=== PATIENT | male | born 1975 | race Caucasian/White ===

== ENCOUNTER 2017-03-20 12:21 | Emergency (ER) | payer OTHER ==
[2017-03-20 12:23] VITALS: BP 114/60; BMI 26.7
--- NOTE | 2017-03-20 13:52 | DR.GENAD ---
HPI - PCP Primary Care Physician: DR. HOANG - HPI Comment HPI Comment: PATIENT HAVE HISTORY OF CIRRHOSIS OF THE LIVER AND THROMBOCYTOPENIA. SILVANITRATE SWAB WAS USE IN PCP OFFICE. HELP BUT SLEEDING STARTED AGAIN. DENIES HEMATURIA OR MELENA. - Complaint/Symptoms Chief Complaint Doctors Comments: BLEEDING FROM LEFT NOSE TIMES 3 DAYS. Chief Complaint:: PATIENT STATED THAT HIS LEFT NARE HAS BEEN BLEEDING FOR 3 DAYS. - Nurses notes reviewed Nurses Notes Review: Yes - Source History Provided: Patient - Mode of Arrival Mode of Arrival: Ambulatory - Timing Onset of Chief Complaint: 03/17/17 Came on: Suddenly - Duration Duration: Intermittent Duration: Days PMH - PMH Past Medical History: Yes Past Medical History: Cirrhosis, Kidney Stones, Liver Disease Past Surgical History: Yes Surgical History: Lithotripsy - Family History History of Family Medical Conditions: Yes Family Medical History: Diabetes Mellitus, Cancer, NM, Coronary Artery Disease, Heart Failure, Hypertension - Social History Does patient currently use any type of tobacco product: No Have you used tobacco products in the last 12 months: No Type of Tobacco Use: None Does any household member use tobacco: No Do you use any recreational Drugs:: No Lives With: Family Lives Where: Home - infectious screening In the last 2 months have you had wt loss of >10#?: NO Have you had fever, night sweats or hemotysis?: No Have you traveled outside the country in the last 6 months?: No Isolation: Standard ROS - Review of Systems Constitutional: Weakness, Fatigue Eyes: No Symptoms Reported ENTM: Nose Pain (LT NOSTRIL), Epistaxis (LEFT NOSTRIL). negative: Ear Pain, Nose Congestion, Mouth Pain, Throat Pain Respiratoy: No Symptoms Reported. negative: Productive Cough, Non-Productive Cough, Short of Breath, Wheezing, Hemoptysis Cardiovascular: No Symptoms Reported. negative: Chest Pain, Edema Gastrointestinal/Abdominal: Abdominal Pain, Nausea, Vomiting Genitourinary: No Symptoms Reported Neurological: Weakness. negative: Dizziness Musculoskeletal: No Symptoms Reported Integumentary: No Symptoms Reported. negative: Juandice Hematologic/Lymphatic: Other (THROMBOCYTOPENIA) Endocrine: No Symptoms Reported All Other Systems: Reviewed and Negative PE - Vital Signs Vitals: Pulse Rate 54 Respiratory Rate 20 Blood Pressure [Left Arm] 119/58 Blood Pressure [Right Arm] 104/57 Blood Pressure 114/60 O2 Sat by Pulse Oximetry 100 - General Limitations: No Limitations General Appearance: Alert - Head Head Exam: Normal Inspection - Eyes Eye exam: Normal Appearance. negative: Scleral Icterus, Conjunctival Injection - ENT ENT Exam: Normal External Ear Exam, Other (BLEEDING FROM LEFT NOSTRIL. MOUTH IN MOUTH ALSO.) External Ear Exam: Normal External Inspection TM/Canal Exam: Bilateral Normal Nose Exam: Other (BLEEDING FROM LEFT NOSTRIL.) Mouth Exam: Normal Inspection Throat Exam: Normal Inspection - Neck Neck Exam: Trachea Midline. negative: Tenderness, Meningismus, Lymphadenopathy - Chest Chest Inspection: Symmetric Chest Wall Rise - Respiratory Respiratory Exam: Normal Lung Sounds Bilat Respiratory Exam: Bilateral Clear to Auscultation - Cardiovascular Cardiovascular Exam: Regular Rate, Normal Rhythm, Normal Heart Sounds - Abdominal Exam Abdominal Exam: Normal Bowel Sounds, Soft. negative: Tenderness - Extremities Extremities Exam: Normal Inspection - Back Back Exam: Normal Inspection - Neurologic Neurological Exam: Alert, Oriented X3 - Psychiatric Psychiatric Exam: Anxious - Skin Skin Exam: Dry MDM - Additional Information Additional Information Obtained From: Family - Differential Diagnosis Differential Diagnosis: EPISTAXIS LT NOSTRIL, CIRRHOSIS, THROMBOCYTOPENIA Course - Treatment Treatment: SEE ORDERS. PATIENT DID NOT WISH TO HAVE NASAL PACKING. - Education/Counseling Education/Counseling: Patient, Family, Education Educated On: Diagnosis, Needs for Follow Up ROR - Labs Reviewed Laboratory Results Reviewed?: Yes Result Diagrams: 03/20/17 14:10 03/20/17 14:10 Laboratory: WBC 5.7 X10^3/uL (3.6-10.0) 03/20/17 14:10 RBC 2.92 X10^6/uL (4.7-6.0) L 03/20/17 14:10 Hgb 9.3 g/dL (13.5-18.0) L 03/20/17 14:10 Hct 27.3 % (42.0-54.0) L 03/20/17 14:10 MCV 93.5 fL (80.0-100.0) 03/20/17 14:10 MCH 31.9 pg (27.0-34.0) 03/20/17 14:10 MCHC 34.1 g/dL (33.0-35.0) 03/20/17 14:10 RDW 18.4 % (11.6-16.5) H 03/20/17 14:10 Plt Count 43 X10^3/uL (150.0-450.0) L 03/20/17 14:10 Plt Count Comment Decreased (ADEQUATE) 03/20/17 14:10 MPV 8.5 fL (7.4-11.0) 03/20/17 14:10 Neut % 73.1 % (42.0-75.0) 03/20/17 14:10 Lymph % 16.4 % (21.0-51.0) L 03/20/17 14:10 Park % 8.1 % (0.0-13.0) 03/20/17 14:10 Eos % 1.9 % (0.9-2.9) 03/20/17 14:10 Baso % 0.5 % (0.2-1.0) 03/20/17 14:10 Neut # 4.1 x10^3/uL (2.2-4.8) 03/20/17 14:10 Lymph # 0.9 X10^3/uL (1.3-2.9) L 03/20/17 14:10 Park # 0.5 x10^3/uL (0.3-0.8) 03/20/17 14:10 Eos # 0.1 x10^3/uL (0.0-0.2) 03/20/17 14:10 Baso # 0.0 X10^3/uL (0.0-0.1) 03/20/17 14:10 Absolute Nucleated RBC 0.0 /100WBC 03/20/17 14:10 Plt Morphology Comment Normal (NORMAL) 03/20/17 14:10 RBC Morphology Abnormal (NORMAL) 03/20/17 14:10 Hypochromasia Slight A 03/20/17 14:10 Anisocytosis Slight A 03/20/17 14:10 INR Target Range - 03/20/17 14:10 INR 1.56 (0.8-1.3) H 03/20/17 14:10 PTT 45.0 SECONDS (22.9-36.5) H 03/20/17 14:10 PTT Comment - 03/20/17 14:10 Sodium 141 mmol/L (136-145) 03/20/17 14:10 Corrected Sodium TNP 03/20/17 14:10 Potassium 4.1 mmol/L (3.5-5.1) 03/20/17 14:10 Chloride 107 mmol/L (98-107) 03/20/17 14:10 Carbon Dioxide 27.2 mmol/L (21-32) 03/20/17 14:10 BUN 15 mg/dL (7-18) 03/20/17 14:10 Creatinine 0.92 mg/dL (0.70-1.30) 03/20/17 14:10 Est GFR (MDRD) Af Amer > 60 (>60) 03/20/17 14:10 Est GFR (MDRD) Non-Af > 60 (>60) 03/20/17 14:10 Glucose 100 mg/dL (65-99) H 03/20/17 14:10 Calcium 8.3 mg/dL (8.5-10.1) L 03/20/17 14:10 Corrected Calcium 8.9 mg/dL (8.5-10.1) 03/20/17 14:10 Total Bilirubin 2.20 mg/dL (0.2-1.0) H 03/20/17 14:10 AST 18 Units/L (15-37) 03/20/17 14:10 ALT 20 Units/L (12-78) 03/20/17 14:10 Alkaline Phosphatase 87 Units/L (46-116) 03/20/17 14:10 Total Protein 6.8 g/dL (6.4-8.2) 03/20/17 14:10 Albumin 3.3 g/dL (3.4-5.0) L 03/20/17 14:10 Globulin 3.5 g/dL (2.5-4.5) 03/20/17 14:10 Albumin/Globulin Ratio 0.9 Ratio (1.1-2.1) L 03/20/17 14:10 - Diagnosis Discharge Problem: Thrombocytopenia, Elevated partial thromboplastin time (PTT) Liver cirrhosis Qualifiers: Hepatic cirrhosis type: unspecified hepatic cirrhosis Ascites presence: without ascites Qualified Code(s): K74.60 - Unspecified cirrhosis of liver - Discharge Plan Disposition: HOME, SELF-CARE Condition: Stable - Follow ups/Referrals Follow ups/Referrals: JODEE HOANG [Primary Care Provider] - 03/21/17 - Instructions Instructions: Nosebleed, [id number], Thrombocytopenia, [id number], Cirrhosis Additional Instructions: RETURN TO ED IF WORSE. SEE ENT IN AM
[2017-03-20 14:32] LABS: BASOPHILS % (AUTO) 0.5 % (0.2-1.0); EOSINOPHILS # (AUTO) 0.1 x10^3/uL (0.0-0.2); EOSINOPHILS % (AUTO) 1.9 % (0.9-2.9); HEMATOCRIT 27.3 % (42.0-54.0); HEMOGLOBIN 9.3 g/dL (13.5-18.0); LYMPHOCYTES # (AUTO) 0.9 X10^3/uL (1.3-2.9); LYMPHOCYTES % (AUTO) 16.4 % (21.0-51.0); MEAN CORPUSCULAR HEMOGLOBIN 31.9 pg (27.0-34.0); MEAN CORPUSCULAR HGB CONC 34.1 g/dL (33.0-35.0); MEAN CORPUSCULAR VOLUME 93.5 fL (80.0-100.0); MEAN PLATELET VOLUME 8.5 fL (7.4-11.0); MONOCYTES # (AUTO) 0.5 x10^3/uL (0.3-0.8); MONOCYTES % (AUTO) 8.1 % (0.0-13.0); NEUTROPHILS # (AUTO) 4.1 x10^3/uL (2.2-4.8); NEUTROPHILS % (AUTO) 73.1 % (42.0-75.0); PLATELET COUNT 43 X10^3/uL (150.0-450.0); RED BLOOD COUNT 2.92 X10^6/uL (4.7-6.0); RED CELL DISTRIBUTION WIDTH 18.4 % (11.6-16.5); WHITE BLOOD COUNT 5.7 X10^3/uL (3.6-10.0)
[2017-03-20 14:33] LABS: ALANINE AMINOTRANSFERASE 20 Units/L (12-78); ALBUMIN 3.3 g/dL (3.4-5.0); ALKALINE PHOSPHATASE 87 Units/L (46-116); ASPARTATE AMINO TRANSFERASE 18 Units/L (15-37); BLOOD UREA NITROGEN 15 mg/dL (7-18); CALCIUM 8.3 mg/dL (8.5-10.1); CARBON DIOXIDE 27.2 mmol/L (21-32); CHLORIDE 107 mmol/L (98-107); COR CA(FOR HYPOALB) 8.9 mg/dL (8.5-10.1); CREATININE 0.92 mg/dL (0.70-1.30); GLUCOSE 100 mg/dL (65-99); SODIUM 141 mmol/L (136-145); TOTAL PROTEIN 6.8 g/dL (6.4-8.2); eGFR BLACK RACES > 60 (>60); eGFR NON BLACK RACES > 60 (>60)
[2017-03-20 15:00] LABS: ANISOCYTOSIS SLIGHT; HYPOCHROMASIA SLIGHT; PLATELET MORPHOLOGY COMMENT NORMAL (NORMAL)
[2017-03-20] MEDS ORDERED: AQUA-MEPHYTON ADULT INJ SC ONE (15:36)
[2017-03-20] MEDS ORDERED: AQUA-MEPHYTON ADULT INJ ONE (16:02)
== END 2017-03-20 17:12 | disposition home or self-care (01) ==
LOC: ER 12:28
DX: K74.60 Unspecified cirrhosis of liver (principal); D69.6 Thrombocytopenia, unspecified; R79.1 Abnormal coagulation profile
CPT/HCPCS: 36415; 80053; 85025; 85610; 85730; 96372; 99282; J3430

== ENCOUNTER → 2017-05-23 | Outpatient (CLI) | payer OTHER | LOC: LAB 10:58 | PROVIDERS: ATTEND Internal Medicine Gastroenterology | DX: K70.30 Alcoholic cirrhosis of liver without ascites (principal) | CPT/HCPCS: 36415; 85610 ==

== ENCOUNTER → 2017-05-24 | Outpatient (CLI) | payer OTHER ==
[2017-05-24 10:24] LABS: ALANINE AMINOTRANSFERASE 24 Units/L (12-78); ALBUMIN 3.2 g/dL (3.4-5.0); ALKALINE PHOSPHATASE 78 Units/L (46-116); ASPARTATE AMINO TRANSFERASE 20 Units/L (15-37); BLOOD UREA NITROGEN 14 mg/dL (7-18); CALCIUM 8.1 mg/dL (8.5-10.1); CARBON DIOXIDE 24.9 mmol/L (21-32); CHLORIDE 109 mmol/L (98-107); COR CA(FOR HYPOALB) 8.7 mg/dL (8.5-10.1); GLUCOSE 106 mg/dL (65-99); SODIUM 140 mmol/L (136-145); TOTAL PROTEIN 6.4 g/dL (6.4-8.2); eGFR BLACK RACES > 60 (>60); eGFR NON BLACK RACES > 60 (>60)
[2017-05-24 10:40] LABS: EOSINOPHILS # (AUTO) 0.1 x10^3/uL (0.0-0.2); EOSINOPHILS % (AUTO) 2.6 % (0.9-2.9); HEMATOCRIT 29.9 % (42.0-54.0); HEMOGLOBIN 10.2 g/dL (13.5-18.0); LYMPHOCYTES # (AUTO) 0.9 X10^3/uL (1.3-2.9); LYMPHOCYTES % (AUTO) 29.8 % (21.0-51.0); MEAN CORPUSCULAR HEMOGLOBIN 30.4 pg (27.0-34.0); MEAN CORPUSCULAR HGB CONC 34.1 g/dL (33.0-35.0); MEAN PLATELET VOLUME 9.1 fL (7.4-11.0); MONOCYTES # (AUTO) 0.2 x10^3/uL (0.3-0.8); MONOCYTES % (AUTO) 8.5 % (0.0-13.0); NEUTROPHILS # (AUTO) 1.7 x10^3/uL (2.2-4.8); NEUTROPHILS % (AUTO) 58.1 % (42.0-75.0); RED BLOOD COUNT 3.36 X10^6/uL (4.7-6.0); RED CELL DISTRIBUTION WIDTH 17.6 % (11.6-16.5); WHITE BLOOD COUNT 2.9 X10^3/uL (3.6-10.0)
[2017-05-24 10:53] LABS: PLATELET COUNT 43 X10^3/uL (150.0-450.0); PLATELET MORPHOLOGY COMMENT NORMAL (NORMAL); POIKILOCYTOSIS SLIGHT
[2017-05-24 10:54] LABS: ANISOCYTOSIS SLIGHT
== END ==
LOC: LAB 09:40
PROVIDERS: ATTEND Internal Medicine Gastroenterology
DX: K70.30 Alcoholic cirrhosis of liver without ascites (principal)
CPT/HCPCS: 36415; 80053; 85025

== ENCOUNTER → 2017-07-19 | Outpatient (CLI) | payer OTHER ==
--- NOTE | 2017-07-19 11:11 | MRI ---
History: Lower back pain with radiculopathy Study: MRI lumbar spine Findings: Sagittal and axial MR imaging through the lumbar region is performed with no previous stud ies for comparative purposes. There is mild disc space narrowing with degenerative signal loss from the L3-4 through L5-S1 levels. Alignment is normal. The conus terminates at about the level of the m idbody of L1. At the L1-2 and L2-3 levels are mild degenerative changes of the apophyseal joints. No disc herniation, spinal or foraminal stenosis is demonstrated. At the L3-4 level there are mild degenerative changes of the apophyseal joints with mild thickening of the ligamentum flava. No disc herniation, spinal or foraminal stenosis is demonstrated. At the L4-5 level there is a mild broad-based disc protrusion which appears to be subligamentous. Th ere hyper trophic changes of the posterior elements. There is mild bilateral foraminal narrowing. The L5-S1 level there is a tiny central disc protrusion with no spinal or foraminal stenosis. Incide ntal note is made of an hemangioma within the S1 segment. Impression: Degenerative disc disease from the L3-4 through L5-S1 levels with small disc protrusions at the L4-5 and L5-S1 levels. Mild bilateral L4-5 foraminal narrowing. Mild degenerative changes of the apophyseal joints as described. Reported By:
== END | disposition home or self-care (01) | DRG 552 ==
LOC: RAD 09:27
PROVIDERS: ATTEND Psychiatry & Neurology Neurology
DX: M54.16 Radiculopathy, lumbar region (principal); M51.36 Other intervertebral disc degeneration, lumbar region; M51.37 Other intervertebral disc degeneration, lumbosacral region; M51.26 Other intervertebral disc displacement, lumbar region; M51.27 Other intervertebral disc displacement, lumbosacral region
CPT/HCPCS: 72148

== ENCOUNTER → 2017-08-19 | Outpatient (CLI) | payer OTHER ==
[2017-08-19 13:45] LABS: BLOOD UREA NITROGEN 11 mg/dL (7-18); CALCIUM 8.8 mg/dL (8.5-10.1); CARBON DIOXIDE 23.3 mmol/L (21-32); CHLORIDE 109 mmol/L (98-107); CREATININE 0.96 mg/dL (0.70-1.30); SODIUM 141 mmol/L (136-145); eGFR BLACK RACES > 60 (>60); eGFR NON BLACK RACES > 60 (>60)
== END ==
LOC: LAB 12:59
DX: K70.31 Alcoholic cirrhosis of liver with ascites (principal)
CPT/HCPCS: 36415; 80048; 85610

== ENCOUNTER → 2017-08-27 | Outpatient (CLI) | payer OTHER ==
[2017-08-27 10:51] LABS: BASOPHILS % (AUTO) 0.8 % (0.2-1.0); EOSINOPHILS # (AUTO) 0.1 x10^3/uL (0.0-0.2); EOSINOPHILS % (AUTO) 2.5 % (0.9-2.9); HEMATOCRIT 29.6 % (42.0-54.0); LYMPHOCYTES # (AUTO) 0.7 X10^3/uL (1.3-2.9); LYMPHOCYTES % (AUTO) 25.7 % (21.0-51.0); MEAN CORPUSCULAR HEMOGLOBIN 29.7 pg (27.0-34.0); MEAN CORPUSCULAR HGB CONC 33.7 g/dL (33.0-35.0); MEAN CORPUSCULAR VOLUME 88.1 fL (80.0-100.0); MONOCYTES # (AUTO) 0.3 x10^3/uL (0.3-0.8); NEUTROPHILS # (AUTO) 1.7 x10^3/uL (2.2-4.8); PLATELET COUNT 41 X10^3/uL (150.0-450.0); RED BLOOD COUNT 3.35 X10^6/uL (4.7-6.0); RED CELL DISTRIBUTION WIDTH 17.4 % (11.6-16.5); WHITE BLOOD COUNT 2.8 X10^3/uL (3.6-10.0)
[2017-08-27 10:59] LABS: ALANINE AMINOTRANSFERASE 22 Units/L (12-78); ALBUMIN 3.4 g/dL (3.4-5.0); ALKALINE PHOSPHATASE 71 Units/L (46-116); ASPARTATE AMINO TRANSFERASE 26 Units/L (15-37); BLOOD UREA NITROGEN 14 mg/dL (7-18); CALCIUM 8.6 mg/dL (8.5-10.1); CARBON DIOXIDE 25.4 mmol/L (21-32); CHLORIDE 110 mmol/L (98-107); COR NA(FOR HYPERGLY) 142 mmol/L (136-145); CREATININE 1.03 mg/dL (0.70-1.30); SODIUM 142 mmol/L (136-145); TOTAL PROTEIN 6.4 g/dL (6.4-8.2); eGFR BLACK RACES > 60 (>60); eGFR NON BLACK RACES > 60 (>60)
[2017-08-27 11:34] LABS: PLATELET MORPHOLOGY COMMENT NORMAL (NORMAL)
== END ==
LOC: LAB 10:23
PROVIDERS: ATTEND Internal Medicine Gastroenterology
DX: K70.31 Alcoholic cirrhosis of liver with ascites (principal); Z79.899 Other long term (current) drug therapy; Z76.82 Awaiting organ transplant status
CPT/HCPCS: 36415; 80053; 85025; 85610

== ENCOUNTER → 2018-03-07 | Outpatient (CLI) | payer OTHER ==
[2018-03-07 11:05] LABS: BASOPHILS % (AUTO) 0.6 % (0.2-1.0); EOSINOPHILS # (AUTO) 0.1 x10^3/uL (0.0-0.2); EOSINOPHILS % (AUTO) 4.2 % (0.9-2.9); HEMATOCRIT 31.4 % (42.0-54.0); HEMOGLOBIN 10.5 g/dL (13.5-18.0); LYMPHOCYTES # (AUTO) 0.9 X10^3/uL (1.3-2.9); LYMPHOCYTES % (AUTO) 34.5 % (21.0-51.0); MEAN CORPUSCULAR HEMOGLOBIN 29.7 pg (27.0-34.0); MEAN CORPUSCULAR HGB CONC 33.6 g/dL (33.0-35.0); MEAN CORPUSCULAR VOLUME 88.3 fL (80.0-100.0); MEAN PLATELET VOLUME 9.2 fL (7.4-11.0); MONOCYTES # (AUTO) 0.2 x10^3/uL (0.3-0.8); NEUTROPHILS # (AUTO) 1.4 x10^3/uL (2.2-4.8); NEUTROPHILS % (AUTO) 52.7 % (42.0-75.0); PLATELET COUNT 46 X10^3/uL (150.0-450.0); RED BLOOD COUNT 3.55 X10^6/uL (4.7-6.0); RED CELL DISTRIBUTION WIDTH 18.8 % (11.6-16.5); WHITE BLOOD COUNT 2.7 X10^3/uL (3.6-10.0)
[2018-03-07 11:14] LABS: ALBUMIN 3.3 g/dL (3.4-5.0); BILIRUBIN,DIRECT 0.58 mg/dL (0-0.2); TOTAL PROTEIN 6.9 g/dL (6.4-8.2)
[2018-03-07 11:15] LABS: PLATELET MORPHOLOGY COMMENT NORMAL (NORMAL)
[2018-03-07 11:16] LABS: ANISOCYTOSIS 1+
== END ==
LOC: LAB 10:30
PROVIDERS: ATTEND Internal Medicine Gastroenterology
DX: D64.89 Other specified anemias (principal); K70.30 Alcoholic cirrhosis of liver without ascites
CPT/HCPCS: 36415; 80076; 82140; 85025; 85610

== ENCOUNTER 2021-05-15 17:18 | Inpatient (IN) ==
[2021-05-15] MEDS ORDERED: LIBRIUM PO PRN (17:54)
--- NOTE | 2021-05-15 18:00 | DR.H&P ---
H&P - History & Physical for Day of: H&P Date: 05/15/21 - Chief Complaint Chief Complaint: ABDOMINAL PAIN, N/V/D, HERNIA - History of Present Illness History of Present Illness: PT IS 45 WM DIRECT ADMIT FROM DR DARDEN OFFICE AFTER PRESENT TO OFFICE FOR ER FOLLOW UP. PT STATES HE HAS HAD N/V/D WITH "GALLSTONES" AND SEEN AT [facility] FOR HYDRATION. PT FELT BETTER THEN HAD SWELLING TO RIGHT GROIN AND TESTICLE. PT WAS SEEN IN ER ON 05/06 CT REVEALED LARGE HERNIA AND POSSIBLE SBO, CHOLECYSTITS COULD NOT RULE OUT OBSTRUCTION. PT HAD BEEN ON PO LEVAQUIN. PT REPORTS BILI ELEVATED ~12. PT WAS JAUNDICE IN THE OFFICE AND CO PAIN. PT HAS PMH OF CIRRHOSIS, BUT HAD BEEN CONTROLLED. PT REPORTS HES HAD DIARRHEA OF 2 WEEKS. PT ADMITTED FOR TREATMENT OF ACUTE ILLNESS WITH SURGICAL CONSULTATION. - Past Medical History Past Medical History: Anxiety, Arthritis, Cirrhosis, Kidney Stones, Liver Disease Additional Medical History: Mitral Valve Prolapse - Past Surgical History Surgical History: Lithotripsy Additional Surgical History: Abdominal Paracentesis, Liver Biopsy - Family History Family Medical History: Diabetes Mellitus, Cancer, [place], Coronary Artery Disease, Heart Failure, Hypertension - Social History Does patient currently use any type of tobacco product: No Have you used tobacco products in the last 12 months: No Type of Tobacco Use: None Does any household member use tobacco: No Alcohol Use: Occasionally Drug Use: None Risks, benefits, and alternatives of opioids discussed: No Prescription drug monitoring program results: PDMP reviewed and no concerns identified - Medications Home Medications: No Known Drug Allergies Allergy (Verified 07/28/20 12:45) - Review of Systems Constitutional: Weakness, Malaise Eyes: No Symptoms Reported ENT: No Symptoms Reported Respiratory: SOB with Excertion Cardiovascular: No Symptoms Reported Gastrointestinal: Nausea, Abdominal Pain, Diarrhea Genitourinary: No Symptoms Reported Musculoskeletal: Back Pain Skin: Jaundice Neurological: Weakness - Physical Exam Vital Signs: Blood Pressure [Left Arm] 123/78 Oriented: Normal Eyes: Other (JAUNDICE SCLERA) Ear: Normal Nose: Normal Throat: Normal Respiratory: RLL Diminished, LLL Diminished Cardiovascular: Murmur : Normal Auscultation: Bowel Sounds: Normal Palpation: Other (RIGHT INGUINAL HERNIA, ENLARGED RIGHT TESTICLE) Tenderness: RUQ, RLQ, Epigastric Skin: Decreased Turgur Musculoskeletal: Back:Lumbar Psychiatric: Anxiety Affect: Anxious Speech Pattern: Clear, Appropriate - Assessment/Plan (1) Cholecystitis Status: Acute Plan: ADMIT, NPO AFTER MIDNIGHT FOR MRCP. AMYLASE AND LIPASE ON ADMISSION. PPI THERAPY, ADMISSION LABS INCLUDING PT/INR AND AMMONIA LEVEL. IV HYDRATION, SURGICAL CONSULT. PAIN CONTROL, OCCULT STOOL, VERIFY HOME MEDICATION (2) Hernia, inguinal, right Status: Acute (3) Cirrhosis Qualifiers: Hepatic cirrhosis type: alcoholic cirrhosis Ascites presence: with ascites Qualified Code(s): K70.31 - Alcoholic cirrhosis of liver with ascites Status: Chronic (4) Elevated LFTs Status: Acute (5) GERD (gastroesophageal reflux disease) Qualifiers: Esophagitis presence: esophagitis presence not specified Qualified Code(s): K21.9 - Gastro-esophageal reflux disease without esophagitis Status: Chronic - Allergies Allergies/Adverse Reactions: Allergies Allergy/AdvReac Type Severity Reaction Status Date / Time No Known Drug Allergies Allergy Verified 07/28/20 12:45
--- NOTE | 2021-05-15 19:21 | RAD ---
Acute abdomen series supine upright and chest three viewsIndication: Abdominal pain with diarrhea. Right lower quadrant pain. Inguinal herniaComparison May 06, 2020FINDINGSChest radiograph shows prominent heart size and scarring or infiltrate in the right lung base. There is no free air or pneumatosis. Gallstones are noted. No dilated loop of small bowel identified. Spine curves to the right. No abnormal calcific density seen.IMPRESSION1. No convincing high-grade obstruction, free air or pneumatosis2. Gallstones3. Patchy right lower lung opacity could reflect developing infiltrate.Electronically signed by: FREIDA BELLAMY (May 15, 2021 19:19:04)
[2021-05-15 19:35] LABS: BASOPHILS # (AUTO) 0.1 X10^3/uL (0.0-0.1); BASOPHILS % (AUTO) 1.7 % (0.2-1.0); EOSINOPHILS # (AUTO) 0.1 x10^3/uL (0.0-0.2); HEMOGLOBIN 11.8 g/dL (13.5-18.0); LYMPHOCYTES # (AUTO) 1.1 X10^3/uL (1.3-2.9); LYMPHOCYTES % (AUTO) 16.2 % (21.0-51.0); MEAN CORPUSCULAR HEMOGLOBIN 39.8 pg (27.0-34.0); MEAN CORPUSCULAR HGB CONC 34.8 g/dL (33.0-35.0); MEAN CORPUSCULAR VOLUME 114.2 fL (80.0-100.0); MEAN PLATELET VOLUME 9.3 fL (7.4-11.0); MONOCYTES # (AUTO) 0.6 x10^3/uL (0.3-0.8); MONOCYTES % (AUTO) 8.2 % (0.0-13.0); NEUTROPHILS # (AUTO) 4.9 x10^3/uL (2.2-4.8); NEUTROPHILS % (AUTO) 71.9 % (42.0-75.0); PLATELET COUNT 63 X10^3/uL (150.0-450.0); RED BLOOD COUNT 2.97 X10^6/uL (4.7-6.0); RED CELL DISTRIBUTION WIDTH 16.9 % (11.6-16.5); WHITE BLOOD COUNT 6.7 X10^3/uL (3.6-10.0)
[2021-05-15 19:45] LABS: AMMONIA 18 umol/L (11-32)
[2021-05-15] MEDS: ALDACTONE TAB 25 MG PO SCH (19:49)
[2021-05-15] MEDS: NS 1000 ML 1,000 ML IV SCH (19:49)
[2021-05-15] MEDS: ROXICODONE TAB 5 MG PO PRN (19:50)
[2021-05-15] MEDS: PROTONIX INJ 40 MG VIAL IVP SCH ×2 (19:50→20:53)
[2021-05-15 19:54] LABS: LACTIC ACID 1.7 mmol/L (0.4-2.0)
[2021-05-15 19:55] LABS: ALANINE AMINOTRANSFERASE 40 Units/L (12-78); ALBUMIN 2.5 g/dL (3.4-5.0); ALKALINE PHOSPHATASE 90 Units/L (46-116); AMYLASE 40 Units/L (25-115); ASPARTATE AMINO TRANSFERASE 79 Units/L (15-37); BLOOD UREA NITROGEN 10 mg/dL (7-18); CALCIUM 8.3 mg/dL (8.5-10.1); CARBON DIOXIDE 24.3 mmol/L (21-32); CHLORIDE 108 mmol/L (98-107); COR CA(FOR HYPOALB) 9.5 mg/dL (8.5-10.1); CREATININE 1.07 mg/dL (0.70-1.30); LIPASE 272 Units/L (73-393); MAGNESIUM 1.7 mg/dL (1.7-2.9); SODIUM 141 mmol/L (136-145); TOTAL PROTEIN 6.8 g/dL (6.4-8.2); eGFR NON BLACK RACES > 60 (>60)
[2021-05-15 20:00] LABS: PLATELET MORPHOLOGY COMMENT NORMAL (NORMAL)
[2021-05-15 20:01] LABS: ANISOCYTOSIS 1+; HYPOCHROMASIA SLIGHT; POIKILOCYTOSIS SLIGHT; TEAR DROP CELLS FEW
[2021-05-15] MEDS ORDERED: MVI INJ (ADULT) IV ONE (20:02)
[2021-05-15] MEDS: NS 1000 ML 1,000 ML with MAGNESIUM SULFATE 50% INJ VIAL 1 G, MVI INJ (ADULT) 10 ML IV SCH ×3 (20:30)
[2021-05-15 20:52] LABS: BILIRUBIN,URINE 1+ (NEGATIVE); BLOOD/HEMOGLOBIN,URINE 4+ (NEGATIVE); GLUCOSE, URINE NEGATIVE (NEGATIVE); KETONES,URINE NEGATIVE (NEGATIVE); LEUKOCYTE ESTERASE ,URINE 1+ (NEGATIVE); NITRITES,URINE NEGATIVE (NEGATIVE); PH,URINE 6.5 (5.0 - 8.0); PROTEIN,URINE 1+ (NEGATIVE); UROBILINOGEN,URINE 3+ (NORMAL)
[2021-05-15 20:55] LABS: APPEARANCE,URINE CLEAR (CLEAR); COLOR,URINE AMBER (YELLOW)
[2021-05-15 21:01] LABS: AMORPHOUS SEDIMENT,UR 2+ /HPF (NEGATIVE); BACTERIA,URINE 1+ /HPF (NEGATIVE); MUCUS,URINE FEW /HPF (NEGATIVE); SQUAMOUS EPITHELIAL CELL,UR FEW /HPF (NEGATIVE)
[2021-05-16] MEDS: ROXICODONE TAB 5 MG PO PRN ×2 (04:34→19:06)
[2021-05-16 05:04] LABS: EOSINOPHILS # (AUTO) 0.1 x10^3/uL (0.0-0.2); EOSINOPHILS % (AUTO) 2.8 % (0.9-2.9); HEMATOCRIT 26.4 % (42.0-54.0); HEMOGLOBIN 9.3 g/dL (13.5-18.0); LYMPHOCYTES # (AUTO) 0.9 X10^3/uL (1.3-2.9); MEAN CORPUSCULAR HEMOGLOBIN 39.5 pg (27.0-34.0); MEAN CORPUSCULAR HGB CONC 35.3 g/dL (33.0-35.0); MEAN CORPUSCULAR VOLUME 111.9 fL (80.0-100.0); MEAN PLATELET VOLUME 9.4 fL (7.4-11.0); MONOCYTES # (AUTO) 0.4 x10^3/uL (0.3-0.8); MONOCYTES % (AUTO) 10.3 % (0.0-13.0); NEUTROPHILS # (AUTO) 2.2 x10^3/uL (2.2-4.8); NEUTROPHILS % (AUTO) 59.9 % (42.0-75.0); PLATELET COUNT 40 X10^3/uL (150.0-450.0); RED BLOOD COUNT 2.36 X10^6/uL (4.7-6.0); RED CELL DISTRIBUTION WIDTH 16.7 % (11.6-16.5); WHITE BLOOD COUNT 3.6 X10^3/uL (3.6-10.0)
[2021-05-16 05:18] LABS: ALANINE AMINOTRANSFERASE 33 Units/L (12-78); ALBUMIN 1.9 g/dL (3.4-5.0); ALKALINE PHOSPHATASE 66 Units/L (46-116); ASPARTATE AMINO TRANSFERASE 61 Units/L (15-37); BLOOD UREA NITROGEN 10 mg/dL (7-18); CALCIUM 7.5 mg/dL (8.5-10.1); CARBON DIOXIDE 25.8 mmol/L (21-32); CHLORIDE 111 mmol/L (98-107); COR CA(FOR HYPOALB) 9.2 mg/dL (8.5-10.1); CREATININE 0.96 mg/dL (0.70-1.30); SODIUM 142 mmol/L (136-145); TOTAL PROTEIN 5.1 g/dL (6.4-8.2); eGFR NON BLACK RACES > 60 (>60)
[2021-05-16 05:43] LABS: HYPOCHROMASIA SLIGHT; PLATELET MORPHOLOGY COMMENT NORMAL (NORMAL)
[2021-05-16] MEDS ORDERED: LIBRIUM PO PRN (08:00)
[2021-05-16] MEDS: NS 1000 ML 1,000 ML IV SCH ×2 (09:17→22:33)
[2021-05-16] MEDS: CIPRO IV 400 MG PREMIX* 400 MG/200 ML IV.SOLN. IV SCH ×2 (09:17→21:18)
[2021-05-16] MEDS: PROTONIX INJ 40 MG VIAL IVP SCH ×2 (09:17→21:19)
[2021-05-16] MEDS: ALDACTONE TAB 25 MG PO SCH (09:17)
[2021-05-16] MEDS ORDERED: MORPHINE SULFATE INJ 2 MG INJ IVP ONE ×2 (09:33→11:00)
[2021-05-16] MEDS ORDERED: BENADRYL INJ 50 MG VIAL IVP ONE ×2 (09:34→11:00)
--- NOTE | 2021-05-16 12:56 | MRI ---
Exam:MRCPIndication: GALLSTONESComparison: [05/06/2021 and 05/15/2021]Technique:Multiplanar, multisequence imaging of the abdomen without IV contrast administration.Findings:[In and out of phase imaging demonstrates no drop in signal within the liver to suggest steatosis. The liver has a nodular surface morphology consistent with cirrhosis. Multiple T2 hyperintense lesions are noted scattered throughout the liver parenchyma, the largest measures approximately 1.8 x 1.4 cm within the periphery of the right hepatic lobe on axial image 22. Small amount of perihepatic free fluid.Gallstones are noted within the dependent proximal gallbladder. No pericholecystic fluid or gallbladder wall thickening. No intrahepatic or extrahepatic bile duct dilatation. Pancreatic duct is normal.The spleen is enlarged measuring approximately 18 cm in greatest dimension. No focal splenic lesion. The pancreas demonstrates no mass, peripancreatic adenopathy or fluid. Adrenal glands are normal. The right kidney demonstrates no solid mass or hydronephrosis. The left kidney contains a few small cysts without hydronephrosis or solid mass. Upper GI tract demonstrates no evidence of mass or obstruction. Abdominal aorta is normal in caliber. No adenopathy.IMPRESSIONCholelithiasis without MR evidence of acute cholecystitis. Intrahepatic and extrahepatic bile ducts are normal in caliber.Cirrhotic morphology of the liver with multiple T2 hyperintense lesions, while these may represent cysts the remains indeterminate given the findings consistent chronic liver disease. Correlation with multiphasic contrast enhanced abdominal MRI is recommended for exclusion of underlying malignancy/HCC.Splenomegaly with small amount of free fluid within the abdomen is consistent with portal venous hypertension.Electronically signed by: JODEE BEE (May 16, 2021 12:54:43)
--- NOTE | 2021-05-16 13:06 | DR.CONSULT ---
CONSULT Consultation for Day of: Date: 05/15/21 Allergies Allergies Allergy/AdvReac Type Severity Reaction Status Date / Time No Known Drug Allergies Allergy Verified 07/28/20 12:45 Past Medical History Past Medical History: Anxiety, Arthritis, Cirrhosis, Kidney Stones and Liver Disease Additional Medical History: Mitral Valve Prolapse Past Surgical History Surgical History: Lithotripsy and Other Additional Surgical History: Abdominal Paracentesis, Liver Biopsy Family History Family Medical History: Diabetes Mellitus and Coronary Artery Disease Social History Does patient currently use any type of tobacco product: Yes Have you used tobacco products in the last 12 months: Yes Type of Tobacco Use: Cigarettes How many years tobacco product used: 32 Does any household member use tobacco: No Alcohol Use: Other Drug Use: None Medications Home Medications: No Known Drug Allergies Allergy (Verified 07/28/20 12:45) CONTINUE taking the following medications potassium chloride 10 meq PO DAILY 05/15/21 [History] spironolactone 50 mg PO BID 05/15/21 [History] Physical Exam Vital Signs: Temperature 98.0 F Pulse Rate [Left Radial] 70 Respiratory Rate 20 Blood Pressure [Right Arm] 108/65 Blood Pressure [Left Arm] 104/55 O2 Sat by Pulse Oximetry 99
--- NOTE | 2021-05-16 13:19 | DR.CONSULT ---
CONSULT Consultation for Day of: Date: 05/15/21 Chief Complaint Chief Complaint: Right upper quadrant pain and right groin inguinal hernia. Allergies Allergies Allergy/AdvReac Type Severity Reaction Status Date / Time No Known Drug Allergies Allergy Verified 07/28/20 12:45 History of Present Illness History of Present Illness: 6 years ago he was considered a candidate for liver transplant but got better once he stop drinking alcohol.This 45-year-old male with known history of cirrhosis due to alcohol use had presented originally to the emergency room on 06 May complaining of a right sided inguinal hernia. CT scan of the abdomen and pelvis confirmed the hernia with probable ascitic fluid and also a large gallstone. Patient had been without drinking for almost 6 years and had a binge of alcohol use which landed him in the hospital in [facility] last week for alcohol withdrawal. He presented now to his primary care provider complaining of right upper quadrant pain with known gallstones and the right inguinal hernia. He is been admitted because of diarrhea for hydration and the patient reported his bilirubin to be 12. Past Medical History Past Medical History: Anxiety, Arthritis, Cirrhosis, Kidney Stones and Liver Disease Additional Medical History: Mitral Valve Prolapse Past Surgical History Surgical History: Lithotripsy and Other Additional Surgical History: Abdominal Paracentesis, Liver Biopsy Family History Family Medical History: Diabetes Mellitus and Coronary Artery Disease Social History Does patient currently use any type of tobacco product: Yes (chewing tobacco) Have you used tobacco products in the last 12 months: Yes Type of Tobacco Use: dips How many years tobacco product used: 32 Packs per day or dips/chews per day: 5 dips/day , occasional cigarette Does any household member use tobacco: No Alcohol Use: Other ( Alcohol use has been heavy is past and by his history he was abstinent of alcohol for 6 years until a few weeks ago when he had a binge of drinking. He was admitted to [facility] for withdrawal.) Drug Use: None Medications Home Medications: No Known Drug Allergies Allergy (Verified 07/28/20 12:45) CONTINUE taking the following medications potassium chloride 10 meq PO DAILY 05/15/21 [History] spironolactone 50 mg PO BID 05/15/21 [History] Physical Exam Vital Signs: WBC= 3.6, HgB= 9.3, PLATLETS=40k,INR=1.95, T.bili=5.6, AMYLASE and LIPASE both WNL,MRCP- gallstone, no duct dilation,cirrhosis, no evidence acute chloecystitis. MRCP WBC Temperature 98.0 F Pulse Rate [Left Radial] 70 Respiratory Rate 20 Blood Pressure [Right Arm] 108/65 Blood Pressure [Left Arm] 104/55 O2 Sat by Pulse Oximetry 99 Oriented: Normal, Time, Person and Place Eyes: Normal and Other (scleral icterus) Ear: Normal Nose: Normal Throat: Normal Respiratory: Clear Throughout Cardiovascular: Normal and Other ( Gives history of mitral valve prolapse but I could hear no murmur.) : Other ( Large right inguinal hernia I could not reduce . Feels like bowel but CT reported it as ascitic fluid. It was a non contrast scan ans this could represent non-opacified bowel.) Auscultation: Bowel Sounds: Normal Tenderness: RUQ (mild RUQ tenderness) Skin: Normal and Other ( No caput medusa but does have some swelling at the umbilicus) Musculoskeletal: Normal Psychiatric: Normal, Anxiety and Other ( Not currently in alcohol withdrawal.) Mood Description: Calm Affect: Anxious Speech Pattern: Clear Plan Plan: Possible cholecystitis with cholelithiasis whenever. Although mildly tender this probably represents biliary disease and not acute cholecystitis. He also has a right inguinal hernia and I cannot tell whether bowel contents are involved as contrast was not used for the CT scan. He had recent binge of alcohol use and is at high risk for alcohol withdrawal I do not think any emergency surgery should be done. I will treat him with IV Cipro and transition to PO Cipro. He can be reevaluated in the future to consider cholecystectomy done laparoscopically and right inguinal hernia laparoscopic repair . I would recommend these be done separately. I will follow with you .He needs prophylaxis for alcohol withdrawal as you are doing. His MELD score is 21 which puts him at a 3 month mortality of 23 %.
[2021-05-16] MEDS: NS 1000 ML 1,000 ML with MAGNESIUM SULFATE 50% INJ VIAL 1 G, MVI INJ (ADULT) 10 ML IV SCH ×3 (18:51)
[2021-05-17] MEDS: ROXICODONE TAB 5 MG PO PRN ×3 (04:21→23:23)
[2021-05-17 05:04] LABS: BASOPHILS % (AUTO) 0.8 % (0.2-1.0); EOSINOPHILS # (AUTO) 0.1 x10^3/uL (0.0-0.2); HEMATOCRIT 25.3 % (42.0-54.0); LYMPHOCYTES # (AUTO) 0.7 X10^3/uL (1.3-2.9); LYMPHOCYTES % (AUTO) 26.6 % (21.0-51.0); MEAN CORPUSCULAR HEMOGLOBIN 39.9 pg (27.0-34.0); MEAN CORPUSCULAR HGB CONC 35.4 g/dL (33.0-35.0); MEAN CORPUSCULAR VOLUME 112.7 fL (80.0-100.0); MEAN PLATELET VOLUME 10.3 fL (7.4-11.0); MONOCYTES # (AUTO) 0.3 x10^3/uL (0.3-0.8); MONOCYTES % (AUTO) 11.1 % (0.0-13.0); NEUTROPHILS # (AUTO) 1.6 x10^3/uL (2.2-4.8); NEUTROPHILS % (AUTO) 58.5 % (42.0-75.0); PLATELET COUNT 35 X10^3/uL (150.0-450.0); RED BLOOD COUNT 2.25 X10^6/uL (4.7-6.0); RED CELL DISTRIBUTION WIDTH 16.2 % (11.6-16.5); WHITE BLOOD COUNT 2.8 X10^3/uL (3.6-10.0)
[2021-05-17 05:17] LABS: ALANINE AMINOTRANSFERASE 33 Units/L (12-78); ALBUMIN 1.8 g/dL (3.4-5.0); ALKALINE PHOSPHATASE 62 Units/L (46-116); ASPARTATE AMINO TRANSFERASE 81 Units/L (15-37); BLOOD UREA NITROGEN 8 mg/dL (7-18); CALCIUM 7.4 mg/dL (8.5-10.1); CARBON DIOXIDE 22.8 mmol/L (21-32); CHLORIDE 111 mmol/L (98-107); COR CA(FOR HYPOALB) 9.2 mg/dL (8.5-10.1); CREATININE 0.83 mg/dL (0.70-1.30); SODIUM 141 mmol/L (136-145); TOTAL PROTEIN 5.1 g/dL (6.4-8.2); eGFR NON BLACK RACES > 60 (>60)
--- NOTE | 2021-05-17 05:35 | RAD ---
HISTORYR/O FLUID OVERLOADSTUDYCHEST, 1 [id number]/27/2020FINDINGSThe trachea is midline. The cardiac silhouette is enlarged.. The lungs are clear without focal infiltrate or effusion. Pulmonary vasculature within normal limits. The bony thorax is unremarkable.IMPRESSIONMild cardiomegaly.No active cardiopulmonary diseaseElectronically signed by: Yefri Merrill (May 17, 2021 05:33:18)
[2021-05-17 05:37] LABS: HYPOCHROMASIA SLIGHT; PLATELET MORPHOLOGY COMMENT NORMAL (NORMAL)
[2021-05-17] MEDS: ALDACTONE TAB 25 MG PO SCH (09:31)
[2021-05-17] MEDS: PROTONIX INJ 40 MG VIAL IVP SCH ×2 (09:32→21:43)
[2021-05-17] MEDS: CIPRO IV 400 MG PREMIX* 400 MG/200 ML IV.SOLN. IV SCH ×2 (09:32→21:42)
[2021-05-17 20:54] VITALS: BMI 26.5
[2021-05-17] MEDS: NS 1000 ML 1,000 ML with MAGNESIUM SULFATE 50% INJ VIAL 1 G, MVI INJ (ADULT) 10 ML IV SCH ×3 (21:41)
[2021-05-17] MEDS: NS 1000 ML 1,000 ML IV SCH (21:41)
--- NOTE | 2021-05-17 22:09 | NOTE.SOAP ---
Soap Note Note for Day of Date of Exam: 05/17/21 Subjective Data Subjective Data: Patient with history of cirrhosis, galllstones and right inguinal hernia . Recent binge of drinking after 6 years of abstinence. MELD score of 21 . Feels better on IV Cipro. Getting better. Objective Data Temperature: 98.1 F Pulse Rate: 84 Respiratory Rate: 20 Blood Pressure: 132/61 O2 Sat by Pulse Oximetry: 100 Objective Data: Benign abdomen RUQ . Assessment Assessment: Cholelithiasis , Right inguinal hernia , Improving Plan Plan: May be discharged soon on PO Cipro. Patient is poor candidate for surgery at any location at this time . Would continue conservative treatment on PO antibiotics and evaluate at tertiary facility for possible surgery in the future.
[2021-05-18] MEDS: NS 1000 ML 1,000 ML IV SCH (02:08)
[2021-05-18] MEDS: ALDACTONE TAB 25 MG PO SCH (08:55)
[2021-05-18] MEDS: CIPRO IV 400 MG PREMIX* 400 MG/200 ML IV.SOLN. IV SCH (08:55)
[2021-05-18 08:56] LABS: EOSINOPHILS # (AUTO) 0.1 x10^3/uL (0.0-0.2); EOSINOPHILS % (AUTO) 3.3 % (0.9-2.9); HEMATOCRIT 30.1 % (42.0-54.0); HEMOGLOBIN 10.5 g/dL (13.5-18.0); LYMPHOCYTES # (AUTO) 0.9 X10^3/uL (1.3-2.9); LYMPHOCYTES % (AUTO) 24.3 % (21.0-51.0); MEAN CORPUSCULAR HEMOGLOBIN 39.9 pg (27.0-34.0); MEAN CORPUSCULAR HGB CONC 34.9 g/dL (33.0-35.0); MEAN CORPUSCULAR VOLUME 114.4 fL (80.0-100.0); MEAN PLATELET VOLUME 9.5 fL (7.4-11.0); MONOCYTES # (AUTO) 0.3 x10^3/uL (0.3-0.8); MONOCYTES % (AUTO) 7.6 % (0.0-13.0); NEUTROPHILS # (AUTO) 2.4 x10^3/uL (2.2-4.8); NEUTROPHILS % (AUTO) 63.8 % (42.0-75.0); PLATELET COUNT 37 X10^3/uL (150.0-450.0); RED BLOOD COUNT 2.63 X10^6/uL (4.7-6.0); RED CELL DISTRIBUTION WIDTH 16.6 % (11.6-16.5); WHITE BLOOD COUNT 3.7 X10^3/uL (3.6-10.0)
[2021-05-18] MEDS: ROXICODONE TAB 5 MG PO PRN (08:56)
[2021-05-18] MEDS: PROTONIX INJ 40 MG VIAL IVP SCH (08:56)
[2021-05-18 09:05] LABS: ALANINE AMINOTRANSFERASE 39 Units/L (12-78); ALBUMIN 1.9 g/dL (3.4-5.0); ALKALINE PHOSPHATASE 67 Units/L (46-116); ASPARTATE AMINO TRANSFERASE 89 Units/L (15-37); BLOOD UREA NITROGEN 8 mg/dL (7-18); CALCIUM 7.6 mg/dL (8.5-10.1); CARBON DIOXIDE 22.4 mmol/L (21-32); CHLORIDE 110 mmol/L (98-107); COR CA(FOR HYPOALB) 9.3 mg/dL (8.5-10.1); CREATININE 0.86 mg/dL (0.70-1.30); SODIUM 142 mmol/L (136-145); TOTAL PROTEIN 5.6 g/dL (6.4-8.2); eGFR NON BLACK RACES > 60 (>60)
[2021-05-18 09:20] LABS: PLATELET MORPHOLOGY COMMENT NORMAL (NORMAL)
[2021-05-18 09:21] LABS: TEAR DROP CELLS SLIGHT
[2021-05-18 09:22] LABS: ANISOCYTOSIS SLIGHT
[2021-05-18] MEDS ORDERED: MORPHINE SULFATE INJ 2 MG INJ IVP PRN (10:36)
[2021-05-18] MEDS ORDERED: ATIVAN TAB 1 MG PO NR (11:00)
[2021-05-18 12:21] VITALS: BP 130/70
== END 2021-05-18 12:33 | disposition short-term general hospital (02) | DRG 395 ==
LOC: MED/SURG 17:18
PROVIDERS: ADMIT Internal Medicine; ATTEND Internal Medicine
DX: K52.89 Other specified noninfective gastroenteritis and colitis; K40.90 Unilateral inguinal hernia, without obstruction or gangrene, not specified as recurrent; Z20.822 Contact with and (suspected) exposure to COVID-19; K70.30 Alcoholic cirrhosis of liver without ascites; R19.7 Diarrhea, unspecified; K21.9 Gastro-esophageal reflux disease without esophagitis; R94.5 Abnormal results of liver function studies; R79.1 Abnormal coagulation profile; K80.80 Other cholelithiasis without obstruction

== ENCOUNTER 2021-08-31 15:51 | Inpatient (IN) ==
[2021-08-31] MEDS ORDERED: LASIX IVP ONE ×2 (17:37→21:34)
--- NOTE | 2021-08-31 18:12 | RAD ---
HISTORYsob, edema Relevant Clinical InformationSTUDYCHEST, 1 VIEWCOMPARISONSeptember 2020FINDINGSThe trachea is midline. The cardiac silhouette is stable the lungs are clear without focal infiltrate or effusion. The bony thorax is unremarkable.IMPRESSIONNo acute cardiopulmonary disease.Electronically signed by: GARY MAGDALENO (Aug 31, 2021 18:10:06)
[2021-08-31 18:17] LABS: BASOPHILS % (AUTO) 0.6 % (0.2-1.0); EOSINOPHILS # (AUTO) 0.1 x10^3/uL (0.0-0.2); EOSINOPHILS % (AUTO) 1.4 % (0.9-2.9); HEMATOCRIT 27.4 % (42.0-54.0); HEMOGLOBIN 9.4 g/dL (13.5-18.0); LYMPHOCYTES # (AUTO) 0.9 X10^3/uL (1.3-2.9); LYMPHOCYTES % (AUTO) 19.2 % (21.0-51.0); MEAN CORPUSCULAR HGB CONC 34.4 g/dL (33.0-35.0); MEAN CORPUSCULAR VOLUME 113.6 fL (80.0-100.0); MEAN PLATELET VOLUME 8.7 fL (7.4-11.0); MONOCYTES # (AUTO) 0.6 x10^3/uL (0.3-0.8); MONOCYTES % (AUTO) 12.6 % (0.0-13.0); NEUTROPHILS % (AUTO) 66.2 % (42.0-75.0); PLATELET COUNT 39 X10^3/uL (150.0-450.0); RED BLOOD COUNT 2.42 X10^6/uL (4.7-6.0); WHITE BLOOD COUNT 4.5 X10^3/uL (3.6-10.0)
[2021-08-31 18:24] LABS: AMMONIA 55 umol/L (11-32)
--- NOTE | 2021-08-31 18:24 | DR.H&P ---
H&P - History & Physical for Day of: H&P Date: 08/31/21 - Chief Complaint Chief Complaint: WEAKNESS, SOB, SWELLING WITH >20LBS IN 3 DAYS, BLEEDING GUMS - History of Present Illness History of Present Illness: PT IS 45 WM DIRECT ADMIT FROM DR DARDEN OFFICE WITH CO LIVER FAILURE WITH "LOW PLATELETS, BLOOD CLOT IN LUNGS AND HOLDING FLUID." PT REPORTS HE WAS SENT TO [facility] IN [facility] ON 08/18 AND SEEN AT [facility] 2 DAYS AGO. PT REPORTS HIS PLATELET WERE ~30 AND HE COULD NOT TAKE BLOOD THINNER FOR PE DUE TO BLEEDING. PT REPORTS SEVERE SWELLING AND WEIGHT UP OVER 20LBS. PT REPORTS SET UP WITH [facility] FOR NEXT WEEK FOR LIVER TRANSPLANT EVALUATION. PT HAD GROSS HEMATURIA WITH BLEEDING GUMS IN OFFICE, BP WAS 90/60 WITHOUT ANY BP MEDICATION ON BOARD. PT REPORTS NO COVID + HISTORY, HAS HAD ONE COVID 19+ VACCINE. - Past Medical History Past Medical History: Liver Disease, Cirrhosis, Anxiety, Arthritis, Kidney Stones Additional Medical History: Mitral Valve Prolapse, HYPERTROPHIC CARDIOMYOPATHY. DIASTOLIC DYSFUNCTION - Past Surgical History Surgical History: Lithotripsy, Other Additional Surgical History: Abdominal Paracentesis, Liver Biopsy - Family History Family Medical History: Diabetes Mellitus, Coronary Artery Disease - Social History Does patient currently use any type of tobacco product: No Have you used tobacco products in the last 12 months: No Type of Tobacco Use: None Does any household member use tobacco: No Alcohol Use: Other (PREVIOUS [facility] USE) Drug Use: None Risks, benefits, and alternatives of opioids discussed: Yes Prescription drug monitoring program results: PDMP reviewed and no concerns identified - Medications Home Medications: No Known Drug Allergies Allergy (Verified 07/28/20 12:45) - Review of Systems Constitutional: Weakness, Malaise Eyes: Other (SEVERE SCLERA JAUNDICE) ENT: Other (NOSE BLEED, FRIABLE, BLEEDING GUMS) Respiratory: SOB with Excertion Cardiovascular: Palpitations, Edema Gastrointestinal: Nausea Genitourinary: No Symptoms Reported Musculoskeletal: Back Pain, Leg Pain Skin: Jaundice Neurological: Weakness, Confusion (MILD PER PARENT, "SLUGGISH") - Physical Exam Vital Signs: Blood Pressure [Right Arm] 130/70 Blood Pressure [Left Arm] 124/70 Blood Pressure [Right Arm] 104/57 Blood Pressure 125/81 Oriented: Normal Eyes: Other (JAUNDICE SCLERA) Ear: Normal Nose: Blood Throat: Normal Respiratory: RML Diminished, RLL Diminished, LML Diminished, LLL Diminished Cardiovascular: Murmur, Edema (+3 PITTING EDEMA BILATERALLY) Palpation: Spleen Enlarged, Liver Enlarged Tenderness: RUQ Skin: Decreased Turgur, Other (DIFFUSE PALLOR, JAUNDICE) Musculoskeletal: Right, Left, Leg, Back:Thoracic, Back:Lumbar, Swelling, Tender, Motor Deficit Psychiatric: Anxiety Affect: Anxious Speech Pattern: Clear, Appropriate - Assessment/Plan (1) Thrombocytopenia Status: Acute Plan: SYMPTOMATIC, BLEEDING PRECAUTIONS. TYPE AND SCREEN, PT/INR ON ADMISSION. CBC CMP MAG AMMONIA, CXR, EKG, OCCULT STOOLS. PPI THERAPY, LACTULOSE, RESUME NADOL. IV LASIX WITH BP CONTROL AND STRICT I&OS, PRN SUPPLEMENTAL O2 (2) Elevated partial thromboplastin time (PTT) Status: Acute (3) Hypertrophic cardiomyopathy Status: Acute (4) Diastolic heart failure secondary to hypertrophic obstructive cardiomyopathy Status: Acute (5) Cirrhosis Qualifiers: Hepatic cirrhosis type: alcoholic cirrhosis Ascites presence: with ascites Qualified Code(s): K70.31 - Alcoholic cirrhosis of liver with ascites Status: Chronic (6) Pulmonary embolism Qualifiers: Pulmonary embolism type: unspecified Chronicity: acute Acute cor pulmonale presence: without acute cor pulmonale Qualified Code(s): I26.99 - Other pulmonary embolism without acute cor pulmonale Status: Acute (7) Hyperammonemia Status: Acute - Allergies Allergies/Adverse Reactions: Allergies Allergy/AdvReac Type Severity Reaction Status Date / Time No Known Drug Allergies Allergy Verified 07/28/20 12:45
[2021-08-31 18:34] LABS: ALANINE AMINOTRANSFERASE 26 Units/L (12-78); ALBUMIN 2.3 g/dL (3.4-5.0); ALKALINE PHOSPHATASE 127 Units/L (46-116); ASPARTATE AMINO TRANSFERASE 48 Units/L (15-37); BLOOD UREA NITROGEN 16 mg/dL (7-18); CARBON DIOXIDE 24.8 mmol/L (21-32); CHLORIDE 103 mmol/L (98-107); COR CA(FOR HYPOALB) 9.4 mg/dL (8.5-10.1); COR NA(FOR HYPERGLY) 134 mmol/L (136-145); CREATININE 1.11 mg/dL (0.70-1.30); MAGNESIUM 1.7 mg/dL (1.7-2.9); SODIUM 134 mmol/L (136-145); TOTAL PROTEIN 5.6 g/dL (6.4-8.2); eGFR NON BLACK RACES > 60 (>60)
[2021-08-31 18:37] LABS: PLATELET MORPHOLOGY COMMENT ABNORMAL (NORMAL); TEAR DROP CELLS SLIGHT
[2021-08-31] MEDS: ROXICODONE TAB 5 MG PO PRN (20:28)
[2021-08-31] MEDS: CHRONULAC PO SCH (20:29)
[2021-08-31] MEDS: PROTONIX INJ 40 MG VIAL IVP SCH (20:29)
[2021-08-31] MEDS: NS 1000 ML 1,000 ML IV SCH (20:46)
[2021-09-01 00:51] LABS: BILIRUBIN,URINE NEGATIVE (NEGATIVE); BLOOD/HEMOGLOBIN,URINE 1+ (NEGATIVE); GLUCOSE, URINE NEGATIVE (NEGATIVE); KETONES,URINE NEGATIVE (NEGATIVE); LEUKOCYTE ESTERASE ,URINE NEGATIVE (NEGATIVE); NITRITES,URINE NEGATIVE (NEGATIVE); PROTEIN,URINE NEGATIVE (NEGATIVE); UROBILINOGEN,URINE NORMAL (NORMAL)
[2021-09-01 01:00] VITALS: BMI 27.6
[2021-09-01 01:04] LABS: APPEARANCE,URINE CLEAR (CLEAR); COLOR,URINE YELLOW (YELLOW)
[2021-09-01 01:06] LABS: BACTERIA,URINE NEGATIVE /HPF (NEGATIVE); RBC,URINE NONE SEEN /HPF (0-3); SQUAMOUS EPITHELIAL CELL,UR NEGATIVE /HPF (NEGATIVE)
[2021-09-01] MEDS: ROXICODONE TAB 5 MG PO PRN ×3 (04:45→19:30)
[2021-09-01 06:15] LABS: BASOPHILS % (AUTO) 0.2 % (0.2-1.0); EOSINOPHILS # (AUTO) 0.1 x10^3/uL (0.0-0.2); EOSINOPHILS % (AUTO) 2.4 % (0.9-2.9); HEMATOCRIT 23.3 % (42.0-54.0); HEMOGLOBIN 8.1 g/dL (13.5-18.0); LYMPHOCYTES # (AUTO) 0.8 X10^3/uL (1.3-2.9); LYMPHOCYTES % (AUTO) 28.9 % (21.0-51.0); MEAN CORPUSCULAR HEMOGLOBIN 39.4 pg (27.0-34.0); MEAN CORPUSCULAR HGB CONC 34.9 g/dL (33.0-35.0); MEAN PLATELET VOLUME 8.2 fL (7.4-11.0); MONOCYTES # (AUTO) 0.4 x10^3/uL (0.3-0.8); MONOCYTES % (AUTO) 13.8 % (0.0-13.0); NEUTROPHILS # (AUTO) 1.4 x10^3/uL (2.2-4.8); NEUTROPHILS % (AUTO) 54.7 % (42.0-75.0); PLATELET COUNT 25 X10^3/uL (150.0-450.0); RED BLOOD COUNT 2.06 X10^6/uL (4.7-6.0); RED CELL DISTRIBUTION WIDTH 17.9 % (11.6-16.5); WHITE BLOOD COUNT 2.6 X10^3/uL (3.6-10.0)
[2021-09-01 06:30] LABS: AMMONIA 15 umol/L (11-32)
[2021-09-01 06:36] LABS: ALANINE AMINOTRANSFERASE 21 Units/L (12-78); ALBUMIN 1.8 g/dL (3.4-5.0); ALKALINE PHOSPHATASE 88 Units/L (46-116); ASPARTATE AMINO TRANSFERASE 40 Units/L (15-37); BLOOD UREA NITROGEN 14 mg/dL (7-18); CALCIUM 7.5 mg/dL (8.5-10.1); CARBON DIOXIDE 25.1 mmol/L (21-32); CHLORIDE 106 mmol/L (98-107); COR CA(FOR HYPOALB) 9.3 mg/dL (8.5-10.1); CREATININE 0.83 mg/dL (0.70-1.30); MAGNESIUM 1.6 mg/dL (1.7-2.9); SODIUM 136 mmol/L (136-145); TOTAL PROTEIN 4.7 g/dL (6.4-8.2); eGFR NON BLACK RACES > 60 (>60)
[2021-09-01 07:22] LABS: PLATELET MORPHOLOGY COMMENT NORMAL (NORMAL)
[2021-09-01 07:23] LABS: TEAR DROP CELLS SLIGHT
[2021-09-01] MEDS: PROTONIX INJ 40 MG VIAL IVP SCH ×2 (09:06→21:24)
[2021-09-01] MEDS: INDERAL TAB 10 MG PO SCH (09:06)
[2021-09-01] MEDS: CHRONULAC PO SCH (09:07)
[2021-09-01] MEDS: NS 1000 ML 1,000 ML IV SCH ×2 (09:07→22:04)
[2021-09-01] MEDS ORDERED: MICRO K EXTEN CAP 10 MEQ PO PRN (09:28)
[2021-09-01] MEDS ORDERED: KLOR-CON PO PRN (09:28)
[2021-09-01] MEDS ORDERED: POTASSIUM CHL 60 MEQ/NS 0.45% 500 ML IV PRN (09:28)
[2021-09-01] MEDS ORDERED: POTASSIUM CHL 40 MEQ/NS 0.45% 500 ML IV PRN (09:28)
[2021-09-01] MEDS ORDERED: POTASSIUM CHLORIDE LIQ 20 MEQ UDC PO PRN (09:28)
[2021-09-01] MEDS ORDERED: LOMOTIL PO PRN (09:28)
[2021-09-01] MEDS ORDERED: K-DUR TAB 20 MEQ PO PRN (09:28)
[2021-09-01] MEDS ORDERED: K-RIDER 10 MEQ/NS 100 ML 10 MEQ/100 ML BAG IV PRN (09:28)
[2021-09-01] MEDS ORDERED: MICRO K EXTEN CAP 10 MEQ PO SCH ×2 (10:00→11:00)
[2021-09-01] MEDS ORDERED: NEURONTIN TAB 600 MG PO SCH (10:00)
[2021-09-01] MEDS ORDERED: NS 500 ML IV 500 ML IV ONE (13:43)
[2021-09-01] MEDS: MAGNESIUM SULFATE 1 GRAM/100 mL PREMIX 1 GM/100 ML BAG IV PRN ×2 (14:04→14:56)
[2021-09-01] MEDS: MICRO K EXTEN CAP 10 MEQ PO SCH (18:12)
[2021-09-01] MEDS: LASIX IVP SCH (18:12)
[2021-09-01] MEDS ORDERED: DUONEB 0.5 MG/3 MG (3 mL) NEB ONE (19:51)
[2021-09-01] MEDS ORDERED: PULMICORT NEB TX 0.5 MG NEB ONE (19:51)
[2021-09-01] MEDS: PULMICORT NEB TX 0.5 MG NEB SCH (21:00)
[2021-09-01] MEDS: DUONEB 0.5 MG/3 MG (3 mL) NEB SCH (21:01)
[2021-09-01] MEDS: REQUIP PO SCH (21:24)
[2021-09-01] MEDS: ALDACTONE TAB 25 MG PO SCH (21:24)
[2021-09-02] MEDS: ROXICODONE TAB 5 MG PO PRN ×5 (01:02→22:22)
[2021-09-02 06:39] LABS: ALANINE AMINOTRANSFERASE 22 Units/L (12-78); ALBUMIN 1.7 g/dL (3.4-5.0); ALKALINE PHOSPHATASE 88 Units/L (46-116); ASPARTATE AMINO TRANSFERASE 38 Units/L (15-37); BLOOD UREA NITROGEN 15 mg/dL (7-18); CALCIUM 7.4 mg/dL (8.5-10.1); CARBON DIOXIDE 23.8 mmol/L (21-32); CHLORIDE 107 mmol/L (98-107); COR CA(FOR HYPOALB) 9.2 mg/dL (8.5-10.1); CREATININE 0.97 mg/dL (0.70-1.30); SODIUM 137 mmol/L (136-145); TOTAL PROTEIN 4.5 g/dL (6.4-8.2); eGFR NON BLACK RACES > 60 (>60)
[2021-09-02 07:22] LABS: BASOPHILS % (AUTO) 0.7 % (0.2-1.0); EOSINOPHILS # (AUTO) 0.1 x10^3/uL (0.0-0.2); EOSINOPHILS % (AUTO) 3.6 % (0.9-2.9); HEMOGLOBIN 8.6 g/dL (13.5-18.0); LYMPHOCYTES # (AUTO) 1.1 X10^3/uL (1.3-2.9); LYMPHOCYTES % (AUTO) 31.1 % (21.0-51.0); MEAN CORPUSCULAR HGB CONC 34.5 g/dL (33.0-35.0); MEAN CORPUSCULAR VOLUME 113.1 fL (80.0-100.0); MEAN PLATELET VOLUME 8.1 fL (7.4-11.0); MONOCYTES # (AUTO) 0.4 x10^3/uL (0.3-0.8); MONOCYTES % (AUTO) 12.2 % (0.0-13.0); NEUTROPHILS # (AUTO) 1.8 x10^3/uL (2.2-4.8); NEUTROPHILS % (AUTO) 52.4 % (42.0-75.0); PLATELET COUNT 40 X10^3/uL (150.0-450.0); RED BLOOD COUNT 2.21 X10^6/uL (4.7-6.0); RED CELL DISTRIBUTION WIDTH 17.8 % (11.6-16.5); WHITE BLOOD COUNT 3.5 X10^3/uL (3.6-10.0)
[2021-09-02 07:51] LABS: ANISOCYTOSIS SLIGHT; PLATELET MORPHOLOGY COMMENT NORMAL (NORMAL); TEAR DROP CELLS PRESENT
[2021-09-02] MEDS: CHRONULAC PO SCH (08:51)
[2021-09-02] MEDS: INDERAL TAB 10 MG PO SCH (08:52)
[2021-09-02] MEDS: ALDACTONE TAB 25 MG PO SCH ×2 (08:52→22:22)
[2021-09-02] MEDS: PROTONIX INJ 40 MG VIAL IVP SCH ×2 (08:53→22:23)
[2021-09-02] MEDS: REQUIP PO SCH ×2 (08:53→22:22)
[2021-09-02] MEDS: MICRO K EXTEN CAP 10 MEQ PO SCH ×2 (09:12→17:47)
[2021-09-02] MEDS: LASIX IVP SCH ×2 (09:12→12:16)
[2021-09-02] MEDS: DUONEB 0.5 MG/3 MG (3 mL) NEB SCH ×2 (09:49→23:51)
[2021-09-02] MEDS: PULMICORT NEB TX 0.5 MG NEB SCH ×2 (09:49→23:52)
[2021-09-02] MEDS: RESTORIL CAP 15 MG PO PRN (22:23)
[2021-09-03] MEDS: NS 1000 ML 1,000 ML IV SCH ×3 (03:24→17:39)
[2021-09-03 06:04] LABS: AMMONIA 71 umol/L (11-32)
[2021-09-03 07:04] LABS: ALANINE AMINOTRANSFERASE 26 Units/L (12-78); ALBUMIN 2.1 g/dL (3.4-5.0); ALKALINE PHOSPHATASE 108 Units/L (46-116); ASPARTATE AMINO TRANSFERASE 45 Units/L (15-37); BLOOD UREA NITROGEN 12 mg/dL (7-18); CALCIUM 8.1 mg/dL (8.5-10.1); CHLORIDE 108 mmol/L (98-107); COR CA(FOR HYPOALB) 9.6 mg/dL (8.5-10.1); CREATININE 0.79 mg/dL (0.70-1.30); SODIUM 138 mmol/L (136-145); TOTAL PROTEIN 5.4 g/dL (6.4-8.2); eGFR NON BLACK RACES > 60 (>60)
[2021-09-03 07:11] LABS: BASOPHILS % (AUTO) 0.2 % (0.2-1.0); EOSINOPHILS # (AUTO) 0.1 x10^3/uL (0.0-0.2); EOSINOPHILS % (AUTO) 3.2 % (0.9-2.9); HEMATOCRIT 27.5 % (42.0-54.0); HEMOGLOBIN 9.4 g/dL (13.5-18.0); LYMPHOCYTES # (AUTO) 0.7 X10^3/uL (1.3-2.9); LYMPHOCYTES % (AUTO) 22.3 % (21.0-51.0); MEAN CORPUSCULAR HEMOGLOBIN 38.3 pg (27.0-34.0); MEAN CORPUSCULAR HGB CONC 34.4 g/dL (33.0-35.0); MEAN CORPUSCULAR VOLUME 111.4 fL (80.0-100.0); MEAN PLATELET VOLUME 8.8 fL (7.4-11.0); MONOCYTES # (AUTO) 0.3 x10^3/uL (0.3-0.8); NEUTROPHILS % (AUTO) 63.3 % (42.0-75.0); PLATELET COUNT 42 X10^3/uL (150.0-450.0); RED BLOOD COUNT 2.47 X10^6/uL (4.7-6.0); RED CELL DISTRIBUTION WIDTH 17.1 % (11.6-16.5); WHITE BLOOD COUNT 3.1 X10^3/uL (3.6-10.0)
[2021-09-03 07:25] LABS: TEAR DROP CELLS PRESENT
[2021-09-03 07:26] LABS: PLATELET MORPHOLOGY COMMENT NORMAL (NORMAL)
[2021-09-03] MEDS: PULMICORT NEB TX 0.5 MG NEB SCH ×2 (09:03→20:22)
[2021-09-03] MEDS: DUONEB 0.5 MG/3 MG (3 mL) NEB SCH ×2 (09:03→20:22)
[2021-09-03] MEDS: ROXICODONE TAB 5 MG PO PRN ×3 (10:52→21:06)
[2021-09-03] MEDS: ZOFRAN INJ 4 MG VIAL IVP PRN (10:53)
[2021-09-03] MEDS: NEURONTIN CAP 300 MG PO PRN ×2 (10:53→21:05)
[2021-09-03] MEDS ORDERED: XIFAXAN PO NR (11:00)
[2021-09-03] MEDS: ALDACTONE TAB 25 MG PO SCH ×2 (11:21→21:05)
[2021-09-03] MEDS: PROTONIX INJ 40 MG VIAL IVP SCH ×2 (11:21→21:08)
[2021-09-03] MEDS: CHRONULAC PO SCH (11:22)
[2021-09-03] MEDS: LASIX IVP SCH (11:22)
[2021-09-03] MEDS: INDERAL TAB 10 MG PO SCH (11:22)
[2021-09-03] MEDS: MICRO K EXTEN CAP 10 MEQ PO SCH ×2 (11:23→17:40)
[2021-09-03] MEDS: XIFAXAN PO SCH ×3 (11:23→21:25)
[2021-09-03] MEDS: REQUIP PO SCH ×2 (11:23→21:05)
[2021-09-03] MEDS: PHENERGAN INJ 25 MG IM PRN ×2 (12:25→13:43)
[2021-09-03] MEDS ORDERED: PHENERGAN INJ 25 MG IM ONE (12:26)
[2021-09-03] MEDS ORDERED: XANAX ONE (12:26)
[2021-09-03] MEDS: XANAX PO SCH ×2 (12:35→21:05)
[2021-09-03] MEDS: RESTORIL CAP 15 MG PO PRN (21:07)
[2021-09-04 05:17] LABS: EOSINOPHILS # (AUTO) 0.1 x10^3/uL (0.0-0.2); EOSINOPHILS % (AUTO) 2.9 % (0.9-2.9); HEMATOCRIT 26.2 % (42.0-54.0); HEMOGLOBIN 9.1 g/dL (13.5-18.0); LYMPHOCYTES # (AUTO) 1.1 X10^3/uL (1.3-2.9); MEAN CORPUSCULAR HEMOGLOBIN 38.5 pg (27.0-34.0); MEAN CORPUSCULAR HGB CONC 34.6 g/dL (33.0-35.0); MEAN CORPUSCULAR VOLUME 111.4 fL (80.0-100.0); MEAN PLATELET VOLUME 8.1 fL (7.4-11.0); MONOCYTES # (AUTO) 0.4 x10^3/uL (0.3-0.8); MONOCYTES % (AUTO) 12.2 % (0.0-13.0); NEUTROPHILS # (AUTO) 1.8 x10^3/uL (2.2-4.8); NEUTROPHILS % (AUTO) 51.9 % (42.0-75.0); PLATELET COUNT 49 X10^3/uL (150.0-450.0); RED BLOOD COUNT 2.35 X10^6/uL (4.7-6.0); RED CELL DISTRIBUTION WIDTH 16.9 % (11.6-16.5)
[2021-09-04 05:22] LABS: AMMONIA < 10 umol/L (11-32)
[2021-09-04 05:51] LABS: PLATELET MORPHOLOGY COMMENT NORMAL (NORMAL); WHITE BLOOD COUNT 4.1 X10^3/uL (3.6-10.0)
[2021-09-04 05:53] LABS: ALANINE AMINOTRANSFERASE 30 Units/L (12-78); ALKALINE PHOSPHATASE 88 Units/L (46-116); ASPARTATE AMINO TRANSFERASE 54 Units/L (15-37); BLOOD UREA NITROGEN 13 mg/dL (7-18); CALCIUM 8.4 mg/dL (8.5-10.1); CARBON DIOXIDE 23.9 mmol/L (21-32); CHLORIDE 110 mmol/L (98-107); CREATININE 0.79 mg/dL (0.70-1.30); SODIUM 140 mmol/L (136-145); TOTAL PROTEIN 5.2 g/dL (6.4-8.2); eGFR NON BLACK RACES > 60 (>60)
[2021-09-04] MEDS: XIFAXAN PO SCH ×3 (06:10→21:05)
[2021-09-04] MEDS: MAGNESIUM SULFATE 1 GRAM/100 mL PREMIX 1 GM/100 ML BAG IV PRN ×2 (06:32→17:02)
[2021-09-04] MEDS: ROXICODONE TAB 5 MG PO PRN ×3 (07:43→20:12)
[2021-09-04] MEDS: PROTONIX INJ 40 MG VIAL IVP SCH ×2 (08:00→20:50)
[2021-09-04] MEDS: ALDACTONE TAB 25 MG PO SCH ×2 (08:00→20:50)
[2021-09-04] MEDS: REQUIP PO SCH ×2 (08:00→20:50)
[2021-09-04] MEDS: CHRONULAC PO SCH (08:00)
[2021-09-04] MEDS: MICRO K EXTEN CAP 10 MEQ PO SCH ×2 (08:00→17:00)
[2021-09-04] MEDS: XANAX PO SCH (08:00)
[2021-09-04] MEDS: INDERAL TAB 10 MG PO SCH (08:00)
[2021-09-04] MEDS: LASIX IVP SCH (08:53)
[2021-09-04] MEDS: DUONEB 0.5 MG/3 MG (3 mL) NEB SCH ×2 (10:15→20:40)
[2021-09-04] MEDS: PULMICORT NEB TX 0.5 MG NEB SCH ×2 (10:15→20:40)
--- NOTE | 2021-09-04 11:22 | RAD ---
HISTORYSOBSTUDYAP [id number]/2021FINDINGSStable cardiomegaly with left ventricular prominence. There is interval development of distended and indistinct pulmonary vessels centrally with a diffuse interstitial prominence throughout the lungs. No airspace consolidation or large pleural effusion is evident.IMPRESSIONStable cardiomegaly/LVH. Interval development pulmonary vascular dilatation and diffuse interstitial prominence consistent with CHF. An associated acute inflammatory process is not excluded.Electronically signed by: TYRESE CLIFFORD (Sep 04, 2021 11:20:17)
[2021-09-04] MEDS: NS 1000 ML 1,000 ML IV SCH ×2 (20:13→21:41)
[2021-09-04] MEDS: NEURONTIN CAP 300 MG PO PRN (21:05)
[2021-09-05] MEDS: ROXICODONE TAB 5 MG PO PRN ×2 (01:36→09:21)
[2021-09-05 06:36] LABS: BASOPHILS % (AUTO) 0.2 % (0.2-1.0); EOSINOPHILS # (AUTO) 0.1 x10^3/uL (0.0-0.2); EOSINOPHILS % (AUTO) 2.1 % (0.9-2.9); HEMATOCRIT 22.4 % (42.0-54.0); LYMPHOCYTES # (AUTO) 0.9 X10^3/uL (1.3-2.9); LYMPHOCYTES % (AUTO) 34.7 % (21.0-51.0); MEAN CORPUSCULAR HEMOGLOBIN 38.3 pg (27.0-34.0); MEAN CORPUSCULAR HGB CONC 34.4 g/dL (33.0-35.0); MEAN CORPUSCULAR VOLUME 111.2 fL (80.0-100.0); MEAN PLATELET VOLUME 8.7 fL (7.4-11.0); MONOCYTES # (AUTO) 0.3 x10^3/uL (0.3-0.8); MONOCYTES % (AUTO) 11.6 % (0.0-13.0); NEUTROPHILS # (AUTO) 1.4 x10^3/uL (2.2-4.8); NEUTROPHILS % (AUTO) 51.4 % (42.0-75.0); PLATELET COUNT 32 X10^3/uL (150.0-450.0); RED BLOOD COUNT 2.02 X10^6/uL (4.7-6.0); RED CELL DISTRIBUTION WIDTH 16.8 % (11.6-16.5); WHITE BLOOD COUNT 2.7 X10^3/uL (3.6-10.0)
[2021-09-05 06:44] LABS: AMMONIA 40 umol/L (11-32)
[2021-09-05 06:59] LABS: ALANINE AMINOTRANSFERASE 24 Units/L (12-78); ALBUMIN 1.7 g/dL (3.4-5.0); ALKALINE PHOSPHATASE 79 Units/L (46-116); ASPARTATE AMINO TRANSFERASE 39 Units/L (15-37); BLOOD UREA NITROGEN 12 mg/dL (7-18); CALCIUM 7.5 mg/dL (8.5-10.1); CHLORIDE 110 mmol/L (98-107); COR CA(FOR HYPOALB) 9.3 mg/dL (8.5-10.1); CREATININE 0.94 mg/dL (0.70-1.30); MAGNESIUM 1.7 mg/dL (1.7-2.9); SODIUM 139 mmol/L (136-145); TOTAL PROTEIN 4.5 g/dL (6.4-8.2); eGFR NON BLACK RACES > 60 (>60)
[2021-09-05 07:05] LABS: HEMOGLOBIN 7.7 g/dL (13.5-18.0)
[2021-09-05 07:06] LABS: PLATELET MORPHOLOGY COMMENT NORMAL (NORMAL)
[2021-09-05 07:11] LABS: TEAR DROP CELLS FEW NOTED
[2021-09-05] MEDS: NS 1000 ML 1,000 ML IV SCH ×3 (08:52→16:48)
[2021-09-05] MEDS: PROTONIX INJ 40 MG VIAL IVP SCH ×2 (08:52→20:56)
[2021-09-05] MEDS: LASIX IVP SCH ×2 (08:52→12:44)
[2021-09-05] MEDS: REQUIP PO SCH ×2 (08:53→20:56)
[2021-09-05] MEDS: XIFAXAN PO SCH ×3 (08:53→21:00)
[2021-09-05] MEDS: INDERAL TAB 10 MG PO SCH ×2 (08:54→11:40)
[2021-09-05] MEDS: CHRONULAC PO SCH (08:54)
[2021-09-05] MEDS: ALDACTONE TAB 25 MG PO SCH ×3 (08:55→20:56)
[2021-09-05] MEDS: MICRO K EXTEN CAP 10 MEQ PO SCH ×2 (08:57→16:47)
[2021-09-05] MEDS: PULMICORT NEB TX 0.5 MG NEB SCH ×2 (09:18→21:00)
[2021-09-05] MEDS: DUONEB 0.5 MG/3 MG (3 mL) NEB SCH ×2 (09:18→21:00)
[2021-09-05] MEDS: MORPHINE SULFATE INJ 2 MG INJ IVP PRN ×2 (11:04→18:38)
[2021-09-05 13:28] LABS: BASOPHILS % (AUTO) 0.6 % (0.2-1.0); EOSINOPHILS # (AUTO) 0.1 x10^3/uL (0.0-0.2); EOSINOPHILS % (AUTO) 2.1 % (0.9-2.9); HEMATOCRIT 25.1 % (42.0-54.0); HEMOGLOBIN 8.6 g/dL (13.5-18.0); LYMPHOCYTES % (AUTO) 25.4 % (21.0-51.0); MEAN CORPUSCULAR HEMOGLOBIN 38.3 pg (27.0-34.0); MEAN CORPUSCULAR HGB CONC 34.4 g/dL (33.0-35.0); MEAN CORPUSCULAR VOLUME 111.3 fL (80.0-100.0); MEAN PLATELET VOLUME 8.3 fL (7.4-11.0); MONOCYTES # (AUTO) 0.4 x10^3/uL (0.3-0.8); MONOCYTES % (AUTO) 9.7 % (0.0-13.0); NEUTROPHILS # (AUTO) 2.3 x10^3/uL (2.2-4.8); NEUTROPHILS % (AUTO) 62.2 % (42.0-75.0); PLATELET COUNT 44 X10^3/uL (150.0-450.0); RED BLOOD COUNT 2.25 X10^6/uL (4.7-6.0); RED CELL DISTRIBUTION WIDTH 16.3 % (11.6-16.5); WHITE BLOOD COUNT 3.8 X10^3/uL (3.6-10.0)
[2021-09-05 13:54] LABS: PLATELET MORPHOLOGY COMMENT ABNORMAL (NORMAL)
[2021-09-05] MEDS: MAGNESIUM SULFATE 1 GRAM/100 mL PREMIX 1 GM/100 ML BAG IV PRN ×2 (14:27→15:38)
--- NOTE | 2021-09-05 15:49 | VAS ---
HISTORY:Bilateral lower extremity swellingStudy: Venous DopplerComparison:NoneTECHNIQUE: Multiple stark scale and color flow Doppler images of the deep venous system were obtained of the bilateral lower extremitiesFINDINGS:There is normal respiratory phasicity, compression and augmentation of the extremity veins without evidence of acute DVT .IMPRESSION:1.Negative for DVT.Electronically signed by: AICHA ONEIL (Sep 05, 2021 15:47:11)
[2021-09-05] MEDS: DESYREL PO PRN (20:56)
[2021-09-05] MEDS: XANAX PO PRN (20:57)
[2021-09-06] MEDS: NS 1000 ML 1,000 ML IV SCH ×2 (00:01→15:53)
[2021-09-06] MEDS: DESYREL PO PRN ×2 (00:01→21:10)
[2021-09-06 05:16] LABS: BASOPHILS % (AUTO) 0.3 % (0.2-1.0); EOSINOPHILS # (AUTO) 0.1 x10^3/uL (0.0-0.2); EOSINOPHILS % (AUTO) 2.8 % (0.9-2.9); HEMATOCRIT 21.1 % (42.0-54.0); HEMOGLOBIN 7.4 g/dL (13.5-18.0); LYMPHOCYTES # (AUTO) 0.6 X10^3/uL (1.3-2.9); MEAN CORPUSCULAR HEMOGLOBIN 38.3 pg (27.0-34.0); MEAN CORPUSCULAR HGB CONC 35.1 g/dL (33.0-35.0); MEAN CORPUSCULAR VOLUME 109.2 fL (80.0-100.0); MEAN PLATELET VOLUME 8.6 fL (7.4-11.0); MONOCYTES # (AUTO) 0.2 x10^3/uL (0.3-0.8); MONOCYTES % (AUTO) 9.8 % (0.0-13.0); NEUTROPHILS # (AUTO) 1.1 x10^3/uL (2.2-4.8); NEUTROPHILS % (AUTO) 56.1 % (42.0-75.0); PLATELET COUNT 28 X10^3/uL (150.0-450.0); RED BLOOD COUNT 1.93 X10^6/uL (4.7-6.0); RED CELL DISTRIBUTION WIDTH 16.7 % (11.6-16.5)
[2021-09-06 05:18] LABS: AMMONIA 110 umol/L (11-32)
[2021-09-06 05:34] LABS: ALANINE AMINOTRANSFERASE 26 Units/L (12-78); ALBUMIN 1.6 g/dL (3.4-5.0); ALKALINE PHOSPHATASE 81 Units/L (46-116); ASPARTATE AMINO TRANSFERASE 38 Units/L (15-37); BLOOD UREA NITROGEN 8 mg/dL (7-18); CALCIUM 7.3 mg/dL (8.5-10.1); CARBON DIOXIDE 22.2 mmol/L (21-32); CHLORIDE 109 mmol/L (98-107); COR CA(FOR HYPOALB) 9.2 mg/dL (8.5-10.1); CREATININE 0.93 mg/dL (0.70-1.30); MAGNESIUM 1.7 mg/dL (1.7-2.9); SODIUM 137 mmol/L (136-145); TOTAL PROTEIN 4.5 g/dL (6.4-8.2); eGFR NON BLACK RACES > 60 (>60)
[2021-09-06] MEDS: XIFAXAN PO SCH ×3 (05:37→21:11)
[2021-09-06 05:57] LABS: PLATELET MORPHOLOGY COMMENT NORMAL (NORMAL)
--- NOTE | 2021-09-06 06:27 | RAD ---
HISTORYCHF cirrhosisSTUDYAP [id number]/04/2021FINDINGSStable cardiomegaly. Persistent but slightly improved pulmonary vascular distention and interstitial pulmonary prominence. There is no evidence for airspace involvement, pneumothorax or developing pleural effusion.IMPRESSIONSlightly improved pulmonary vascular congestion. No new abnormality demonstrated.Electronically signed by: TYRESE CLIFFORD (Sep 06, 2021 06:25:09)
[2021-09-06] MEDS: DUONEB 0.5 MG/3 MG (3 mL) NEB SCH ×2 (08:40→21:24)
[2021-09-06] MEDS: PULMICORT NEB TX 0.5 MG NEB SCH ×2 (08:40→21:24)
[2021-09-06] MEDS: INDERAL TAB 10 MG PO SCH (08:51)
[2021-09-06] MEDS: REQUIP PO SCH ×2 (08:51→21:11)
[2021-09-06] MEDS: MICRO K EXTEN CAP 10 MEQ PO SCH ×2 (08:51→17:30)
[2021-09-06] MEDS: ALDACTONE TAB 25 MG PO SCH ×2 (08:51→21:10)
[2021-09-06] MEDS: CHRONULAC PO SCH (09:26)
[2021-09-06] MEDS: PROTONIX INJ 40 MG VIAL IVP SCH ×2 (09:27→21:11)
[2021-09-06] MEDS: MORPHINE SULFATE INJ 2 MG INJ IVP PRN (09:29)
[2021-09-06] MEDS: ZOFRAN INJ 4 MG VIAL IVP PRN (12:35)
[2021-09-06] MEDS: NEURONTIN CAP 300 MG PO PRN ×2 (12:35→21:11)
[2021-09-06 13:41] LABS: BASOPHILS % (AUTO) 0.5 % (0.2-1.0); EOSINOPHILS # (AUTO) 0.1 x10^3/uL (0.0-0.2); EOSINOPHILS % (AUTO) 3.2 % (0.9-2.9); HEMATOCRIT 23.3 % (42.0-54.0); HEMOGLOBIN 8.1 g/dL (13.5-18.0); LYMPHOCYTES # (AUTO) 0.8 X10^3/uL (1.3-2.9); LYMPHOCYTES % (AUTO) 26.2 % (21.0-51.0); MEAN CORPUSCULAR HEMOGLOBIN 38.3 pg (27.0-34.0); MEAN CORPUSCULAR HGB CONC 34.7 g/dL (33.0-35.0); MEAN CORPUSCULAR VOLUME 110.4 fL (80.0-100.0); MEAN PLATELET VOLUME 9.6 fL (7.4-11.0); MONOCYTES # (AUTO) 0.3 x10^3/uL (0.3-0.8); MONOCYTES % (AUTO) 10.4 % (0.0-13.0); NEUTROPHILS # (AUTO) 1.8 x10^3/uL (2.2-4.8); NEUTROPHILS % (AUTO) 59.7 % (42.0-75.0); PLATELET COUNT 35 X10^3/uL (150.0-450.0); RED BLOOD COUNT 2.11 X10^6/uL (4.7-6.0); RED CELL DISTRIBUTION WIDTH 16.5 % (11.6-16.5); WHITE BLOOD COUNT 3.1 X10^3/uL (3.6-10.0)
[2021-09-06 14:03] LABS: PLATELET MORPHOLOGY COMMENT ABNORMAL (NORMAL)
[2021-09-06] MEDS: MAGNESIUM SULFATE 1 GRAM/100 mL PREMIX 1 GM/100 ML BAG IV PRN ×2 (15:10→18:19)
[2021-09-07] MEDS: XANAX PO PRN ×3 (00:24→20:55)
[2021-09-07] MEDS: MORPHINE SULFATE INJ 2 MG INJ IVP PRN (01:13)
[2021-09-07 06:22] LABS: BASOPHILS % (AUTO) 0.2 % (0.2-1.0); EOSINOPHILS # (AUTO) 0.1 x10^3/uL (0.0-0.2); HEMATOCRIT 22.6 % (42.0-54.0); HEMOGLOBIN 7.7 g/dL (13.5-18.0); LYMPHOCYTES # (AUTO) 0.7 X10^3/uL (1.3-2.9); LYMPHOCYTES % (AUTO) 31.9 % (21.0-51.0); MEAN CORPUSCULAR HEMOGLOBIN 38.2 pg (27.0-34.0); MEAN CORPUSCULAR HGB CONC 34.2 g/dL (33.0-35.0); MEAN CORPUSCULAR VOLUME 111.8 fL (80.0-100.0); MONOCYTES # (AUTO) 0.2 x10^3/uL (0.3-0.8); MONOCYTES % (AUTO) 9.6 % (0.0-13.0); NEUTROPHILS # (AUTO) 1.2 x10^3/uL (2.2-4.8); NEUTROPHILS % (AUTO) 55.3 % (42.0-75.0); PLATELET COUNT 30 X10^3/uL (150.0-450.0); RED BLOOD COUNT 2.02 X10^6/uL (4.7-6.0); RED CELL DISTRIBUTION WIDTH 16.6 % (11.6-16.5); WHITE BLOOD COUNT 2.3 X10^3/uL (3.6-10.0)
[2021-09-07] MEDS: NS 1000 ML 1,000 ML IV SCH ×3 (06:29→18:02)
[2021-09-07] MEDS: XIFAXAN PO SCH ×3 (06:29→21:00)
[2021-09-07 06:52] LABS: ALANINE AMINOTRANSFERASE 30 Units/L (12-78); ALBUMIN 1.9 g/dL (3.4-5.0); ALKALINE PHOSPHATASE 90 Units/L (46-116); ASPARTATE AMINO TRANSFERASE 43 Units/L (15-37); BLOOD UREA NITROGEN 6 mg/dL (7-18); CALCIUM 7.8 mg/dL (8.5-10.1); CARBON DIOXIDE 22.8 mmol/L (21-32); CHLORIDE 110 mmol/L (98-107); COR CA(FOR HYPOALB) 9.5 mg/dL (8.5-10.1); SODIUM 139 mmol/L (136-145); TOTAL PROTEIN 4.8 g/dL (6.4-8.2); eGFR NON BLACK RACES > 60 (>60)
[2021-09-07 06:56] LABS: PLATELET MORPHOLOGY COMMENT NORMAL (NORMAL)
[2021-09-07 07:07] LABS: AMMONIA 23 umol/L (11-32)
[2021-09-07] MEDS: DUONEB 0.5 MG/3 MG (3 mL) NEB SCH ×2 (08:10→20:40)
[2021-09-07] MEDS: PULMICORT NEB TX 0.5 MG NEB SCH ×2 (08:10→20:40)
[2021-09-07] MEDS: ALDACTONE TAB 25 MG PO SCH ×2 (09:52→20:54)
[2021-09-07] MEDS: PROTONIX INJ 40 MG VIAL IVP SCH ×2 (09:53→20:55)
[2021-09-07] MEDS: CHRONULAC PO SCH (09:53)
[2021-09-07] MEDS: REQUIP PO SCH ×2 (09:54→20:54)
[2021-09-07] MEDS: MICRO K EXTEN CAP 10 MEQ PO SCH ×2 (09:54→16:56)
[2021-09-07] MEDS: INDERAL TAB 10 MG PO SCH (09:54)
[2021-09-07 12:08] LABS: BASOPHILS % (AUTO) 0.4 % (0.2-1.0); HEMATOCRIT 23.8 % (42.0-54.0); HEMOGLOBIN 8.2 g/dL (13.5-18.0); LYMPHOCYTES # (AUTO) 0.6 X10^3/uL (1.3-2.9); MEAN CORPUSCULAR HEMOGLOBIN 38.3 pg (27.0-34.0); MEAN CORPUSCULAR HGB CONC 34.3 g/dL (33.0-35.0); MEAN CORPUSCULAR VOLUME 111.7 fL (80.0-100.0); MEAN PLATELET VOLUME 8.1 fL (7.4-11.0); MONOCYTES # (AUTO) 0.2 x10^3/uL (0.3-0.8); MONOCYTES % (AUTO) 9.9 % (0.0-13.0); NEUTROPHILS # (AUTO) 1.4 x10^3/uL (2.2-4.8); NEUTROPHILS % (AUTO) 60.7 % (42.0-75.0); PLATELET COUNT 31 X10^3/uL (150.0-450.0); RED BLOOD COUNT 2.13 X10^6/uL (4.7-6.0); RED CELL DISTRIBUTION WIDTH 17.2 % (11.6-16.5); WHITE BLOOD COUNT 2.3 X10^3/uL (3.6-10.0)
[2021-09-07 12:41] LABS: BAND NEUTROPHILS % 2 % (0-10)
[2021-09-07 12:42] LABS: PLATELET MORPHOLOGY COMMENT NORMAL (NORMAL)
[2021-09-07 14:14] LABS: WHITE BLOOD COUNT 2.3 X10^3/uL (3.6-10.0)
--- NOTE | 2021-09-07 14:27 | CT ---
HISTORYPOSSIBLE BRAIN BLEED, AMSSTUDYBRAIN W/O CONCOMPARISONHead CT 07/28/2020TECHNIQUEMultiple CT axial images of the head were obtained without IV contrast. Coronal and sagittal images were reconstructed. Dose reduction techniques included Automated Exposure Control (AEC) and adjustment of mA and kV.FINDINGSGray and white matter have normal differentiation. There is no mass, shift, or hemorrhage. Cerebellar tonsils are at an appropriate level. No fluid in the sinuses or mucosal thickening to suggest sinusitis. There is no mastoid effusion.IMPRESSION1. No acute findingElectronically signed by: George Long (Sep 07, 2021 14:25:57)
[2021-09-07] MEDS: DESYREL PO PRN (20:55)
[2021-09-08 05:11] LABS: AMMONIA < 10 umol/L (11-32)
[2021-09-08 05:24] LABS: BASOPHILS % (AUTO) 0.2 % (0.2-1.0); EOSINOPHILS # (AUTO) 0.1 x10^3/uL (0.0-0.2); EOSINOPHILS % (AUTO) 2.6 % (0.9-2.9); HEMATOCRIT 23.8 % (42.0-54.0); HEMOGLOBIN 8.2 g/dL (13.5-18.0); LYMPHOCYTES # (AUTO) 0.6 X10^3/uL (1.3-2.9); LYMPHOCYTES % (AUTO) 28.3 % (21.0-51.0); MEAN CORPUSCULAR HEMOGLOBIN 38.5 pg (27.0-34.0); MEAN CORPUSCULAR HGB CONC 34.4 g/dL (33.0-35.0); MEAN CORPUSCULAR VOLUME 112.1 fL (80.0-100.0); MEAN PLATELET VOLUME 8.9 fL (7.4-11.0); MONOCYTES # (AUTO) 0.2 x10^3/uL (0.3-0.8); MONOCYTES % (AUTO) 9.7 % (0.0-13.0); NEUTROPHILS # (AUTO) 1.3 x10^3/uL (2.2-4.8); NEUTROPHILS % (AUTO) 59.2 % (42.0-75.0); PLATELET COUNT 35 X10^3/uL (150.0-450.0); RED BLOOD COUNT 2.13 X10^6/uL (4.7-6.0); RED CELL DISTRIBUTION WIDTH 16.9 % (11.6-16.5); WHITE BLOOD COUNT 2.2 X10^3/uL (3.6-10.0)
[2021-09-08 05:27] LABS: ALANINE AMINOTRANSFERASE 30 Units/L (12-78); ALBUMIN 1.9 g/dL (3.4-5.0); ALKALINE PHOSPHATASE 82 Units/L (46-116); ASPARTATE AMINO TRANSFERASE 42 Units/L (15-37); BLOOD UREA NITROGEN 6 mg/dL (7-18); CALCIUM 8.1 mg/dL (8.5-10.1); CARBON DIOXIDE 22.3 mmol/L (21-32); CHLORIDE 109 mmol/L (98-107); COR CA(FOR HYPOALB) 9.8 mg/dL (8.5-10.1); CREATININE 0.93 mg/dL (0.70-1.30); MAGNESIUM 1.6 mg/dL (1.7-2.9); SODIUM 138 mmol/L (136-145); TOTAL PROTEIN 4.9 g/dL (6.4-8.2); eGFR NON BLACK RACES > 60 (>60)
[2021-09-08 06:07] LABS: PLATELET MORPHOLOGY COMMENT NORMAL (NORMAL)
[2021-09-08 06:08] LABS: ANISOCYTOSIS SLIGHT
[2021-09-08] MEDS: REQUIP PO SCH ×2 (09:22→21:11)
[2021-09-08] MEDS: CHRONULAC PO SCH (09:22)
[2021-09-08] MEDS: ALDACTONE TAB 25 MG PO SCH ×2 (09:23→21:11)
[2021-09-08] MEDS: MICRO K EXTEN CAP 10 MEQ PO SCH ×2 (09:26→18:09)
[2021-09-08] MEDS: INDERAL TAB 10 MG PO SCH (09:29)
[2021-09-08] MEDS: PROTONIX INJ 40 MG VIAL IVP SCH ×2 (10:08→21:11)
[2021-09-08] MEDS: NS 1000 ML 1,000 ML IV SCH ×2 (10:09→22:21)
[2021-09-08] MEDS: DUONEB 0.5 MG/3 MG (3 mL) NEB SCH ×2 (10:13→20:30)
[2021-09-08] MEDS: PULMICORT NEB TX 0.5 MG NEB SCH ×2 (10:14→20:30)
[2021-09-08] MEDS ORDERED: ROCEPHIN 1 GRAM IV PREMIX 1 G/50 ML IV.SOLN. IV SCH (11:00)
[2021-09-08] MEDS ORDERED: XIFAXAN PO SCH (21:00)
[2021-09-08] MEDS: DESYREL PO PRN (21:11)
[2021-09-08] MEDS: MORPHINE SULFATE INJ 2 MG INJ IVP PRN (22:19)
[2021-09-09] MEDS: XANAX PO PRN (06:37)
[2021-09-09 07:04] VITALS: BP 107/58
== END 2021-09-09 06:40 | disposition short-term general hospital (02) | DRG 441 ==
LOC: MED/SURG
PROVIDERS: ADMIT Internal Medicine; ATTEND Internal Medicine
DX: K72.10 Chronic hepatic failure without coma; R31.0 Gross hematuria; K72.00 Acute and subacute hepatic failure without coma; K70.31 Alcoholic cirrhosis of liver with ascites; I50.31 Acute diastolic (congestive) heart failure; R58 Hemorrhage, not elsewhere classified; D69.6 Thrombocytopenia, unspecified; R60.0 Localized edema; E87.6 Hypokalemia; I42.1 Obstructive hypertrophic cardiomyopathy; I26.99 Other pulmonary embolism without acute cor pulmonale; R79.1 Abnormal coagulation profile; Z20.822 Contact with and (suspected) exposure to COVID-19; R79.89 Other specified abnormal findings of blood chemistry; F41.8 Other specified anxiety disorders

== ENCOUNTER 2022-01-07 20:33 | Observation (INO) ==
--- NOTE | 2022-01-07 21:03 | DR.GENAD ---
HPI Time Seen Time Seen by Provider: 01/07/22 21:03 PCP Primary Care Physician: LINDSEY RODRIGEZ HPI Comment HPI Comment: PATIENT IS 46YR OLD MALE IN ER WITH CHEST PAIN AND SHAKING. HISTORY LIVER CIRRHOSIS AND CARDIC DISEASE. HAVING CHEST PAIN, INCREASING ABDOMINAL PAIN AND NAUSEA. NO DYSURIA. HE IS MORE YELLOW TODAY. CHEST PAIN SHARP AND BURNING, 7/10 RADIATING TO THE BACK. Complaint/Symptoms Chief Complaint Doctors Comments: CHEST PAIN TODAY AND SHAKING CHILLS SINCE YESTERDAY. Chief Complaint:: Pt states that he began having "shakes" yesterday and have been progressively worsening throughout the day today. Pt also states he has been nauseated. Pt reports that he started having chest discomfort this afternoon. Chest discomfort 7/10. Pt states that it does not feel like pain or pressure, "it is just uncomfortable." Pt denies pain in back, side, or upper extremeties. Self Treatment fo Chief Complaint: Pt states that he came to the ED on Saturday for same complaint and was supposed to be admitted, but he wanted to go home. COVID-19 Coronavirus risk:travel/contact w/high risk person: No Has patient experienced Coronavirus symptoms: No Nurses notes reviewed Nurses Notes Review: Yes Source History Provided: Patient Mode of Arrival Mode of Arrival: Ambulatory Timing Onset of Chief Complaint: 01/06/22 Came on: Suddenly Duration Duration: Constant Duration: Days Severity Severity: Moderate Modifying Factors Worsens:: EXERTION. Improves:: REST. Associated Signs and Symptoms Associated Signs and Symptoms: WEAKNESS. Other History Other History: LIVER CIRRHOSIS. PMH PMH Past Medical History: Yes Past Medical History: Cirrhosis Past Medical History Comment: Mitral Valve Prolapse Past Surgical History: Yes Surgical History: Lithotripsy Past Surgical History Comment: Lithotripsy Family History History of Family Medical Conditions: Yes Family Medical History: Diabetes Mellitus, Cancer, Coronary Artery Disease and Hypertension Social History Alcohol Use: None Do you use any recreational Drugs:: No Travel Risk Coronavirus risk:travel/contact w/high risk person: No Has patient experienced Coronavirus symptoms: No Infectious screening Have you traveled outside the country in the last 6 months?: No Isolation: Standard ROS Review of Systems Constitutional: See HPI, Chills, Weakness and Fatigue; negative Fever Eyes: No Symptoms Reported and See HPI ENTM: No Symptoms Reported and See HPI; negative Nose Discharge and Nose Congestion Respiratoy: See HPI, Moist Cough and Short of Breath (ON EXERTION.); negative Wheezing Cardiovascular: No Symptoms Reported, See HPI and Chest Pain Gastrointestinal/Abdominal: See HPI, Abdominal Pain and Nausea; negative Diarr hea and Vomiting Genitourinary: No Symptoms Reported and See HPI; negative Dysuria, Frequency and Hematuria Neurological: See HPI and Weakness; negative Headache, Tremors (JERKING.) and Dizziness Musculoskeletal: See HPI and Back Pain Integumentary: See HPI and Juandice; negative Rash Hematologic/Lymphatic: See HPI, Easy Bleeding and Easy Bruising Endocrine: No Symptoms Reported and See HPI; negative Increased Thirst and Increased Urine Psychiatric: No Symptoms Reported and See HPI All Other Systems: Reviewed and Negative PE Vital Signs Vitals: Temperature 97.9 F Pulse Rate 100 Respiratory Rate 18 Blood Pressure [Right Arm] 130/65 Blood Pressure 149/74 O2 Sat by Pulse Oximetry 100 General Limitations: No Limitations General Appearance: Alert and In Distress (ON EXERTION.) Head Head Exam: Normal Inspection and Atraumatic Eyes Eye exam: Normal Appearance, PERRL and Scleral Icterus; negative Conjunctival Injection ENT ENT Exam: Normal Exam, Normal Oropharynx, Normal External Ear Exam and TM's Normal Bilaterally External Ear Exam: Normal External Inspection; negative Mastoid Tenderness TM/Canal Exam: Bilateral: Normal Nose Exam: Normal Nose Exam Mouth Exam: Normal Inspection; negative Lip Swelling and Tongue Swelling Throat Exam: Normal Inspection; negative Tonsillar Erythema, Tonsillomegaly and Tonsillar Exudate Neck Neck Exam: Normal Inspection and Trachea Midline; negative Tenderness Chest Chest Inspection: Normal Inspection and Symmetric Chest Wall Rise; negative Tend erness Respiratory Respiratory Exam: Normal Lung Sounds Bilat; negative Accessory Muscle Use, Chest Wall Tenderness and Respiratory Distress Respiratory Exam: Bilateral: Rhonchi and Lower: Rhonchi Cardiovascular Cardiovascular Exam: Regular Rate, Normal Rhythm and Normal Heart Sounds; negative Systolic Murmur and Diastolic Murmur Abdominal Exam Abdominal Exam: Normal Bowel Sounds, Soft, Tenderness and Ascites Abdominal Tenderness: Diffuse and Mild Extremities Extremities Exam: Normal Inspection and Normal Capillary Refill Back Back Exam: Normal Inspection; negative (R) CVA Tenderness and (L) CVA Tenderness Neurologic Neurological Exam: Alert and Other (JERKING.); negative Oriented X3 (NOT ORIENTED TO TIME.) and Motor Sensory Deficit Psychiatric Psychiatric Exam: Normal Affect and Anxious Skin Skin Exam: Dry MDM Additional Information Additional Information Obtained From: Old Records and Family Differential Diagnosis Differential Diagnosis: DEHYDRATION, HEPATIC ENCEPHALOPATHY, LIVER CIRRHOSIS, GENERALIZED WEAKNESS. COURSE Treatment Treatment: SEE ORDERS. VIT K 10 UNITS S/C, NS 125CC/HR, MORPHIN 4MG IM AND ZOFRAN 4MG IV IS GIGEN IN ER. PATIENTS LABS AND XRAY REPORTS DISCUSSED AND HE IS ADMITTED FOR FURTHER MANAGEMENT TO HOSPITAL. Consultation Consultation Comments: DISCUSSED PATIENT WITH DR. VALDEZ. HE WILL ADMIT PATIENT. Education/Counseling Education/Counseling: Patient Educated On: Diagnosis ROR Labs Reviewed Laboratory Results Reviewed?: Yes Result Diagrams: 01/10/22 05:15 01/10/22 05:15 Laboratory: WBC 2.6 X10^3/uL (3.6-10.0) L 01/07/22 21:30 RBC 2.39 X10^6/uL (4.7-6.0) L 01/07/22 21:30 Hgb 9.1 g/dL (13.5-18.0) L 01/07/22 21:30 Hct 25.9 % (42.0-54.0) L 01/07/22 21:30 MCV 108.2 fL (80.0-100.0) H 01/07/22 21:30 MCH 37.9 pg (27.0-34.0) H 01/07/22 21:30 MCHC 35.1 g/dL (33.0-35.0) H 01/07/22 21:30 RDW 15.8 % (11.6-16.5) 01/07/22 21:30 Plt Count 25 X10^3/uL (150.0-450.0) L 01/07/22 21:30 Plt Count Comment Decreased (ADEQUATE) 01/07/22 21:30 MPV 8.2 fL (7.4-11.0) 01/07/22 21:30 Neut % (Auto) 71.2 % (42.0-75.0) 01/07/22 21:30 Lymph % (Auto) 11.7 % (21.0-51.0) L 01/07/22 21:30 Rosebud % (Auto) 15.4 % (0.0-13.0) H 01/07/22 21:30 Eos % (Auto) 1.2 % (0.9-2.9) 01/07/22 21:30 Baso % (Auto) 0.5 % (0.2-1.0) 01/07/22 21:30 Neut # (Auto) 1.9 x10^3/uL (2.2-4.8) L 01/07/22 21:30 Lymph # (Auto) 0.3 X10^3/uL (1.3-2.9) L 01/07/22 21:30 Rosebud # (Auto) 0.4 x10^3/uL (0.3-0.8) 01/07/22 21:30 Eos # (Auto) 0.0 x10^3/uL (0.0-0.2) 01/07/22 21: Baso # (Auto) 0.0 X10^3/uL (0.0-0.1) 01/07/22 21: Absolute Nucleated RBC 0.1 /100WBC 01/07/22 21: Plt Morphology Comment Normal (NORMAL) 01/07/22: RBC Morphology Abnormal (NORMAL) 01/07/22 21:30 Poikilocytosis 2+ A 01/07/22 21: Anisocytosis Slight A 01/07/22 21: Macrocytosis 1+ A 01/07/22: Target Cells Present 01/07/22: Tear Drop Cells Present 01/07/22 21: Acanthocytes (Spur) Present 01/07/22: PT 28.6 SECONDS (11.8-14.3) 01/07/22: INR Target Range - 01/07/22: INR 2.85 (0.8-1.3) H 01/07/22 21:30 APTT 52.3 SECONDS (22.9-36.5) H 01/07/22 21:30 PTT Comment - 01/07/22 21:30 Sodium 138 mmol/L (136-145) 01/07/22: Corrected Sodium 139 mmol/L (136-145) 01/07/22 21: Potassium 4.3 mmol/L (3.5-5.1) 01/07/22 21: Chloride 107 mmol/L (98-107) 01/07/22 21: Carbon Dioxide 26.9 mmol/L (21-32) 01/07/22 21:30 BUN 17 mg/dL (7-18) 01/07/22 21:30 Creatinine 1.07 mg/dL (0.70-1.30) 01/07/22 21:30 Est GFR (MDRD) Af Amer > 60 (>60) 01/07/22 21:30 Est GFR (MDRD) Non-Af > 60 (>60) 01/07/22 21:30 Glucose 131 mg/dL (65-99) H 01/07/22 21:30 Calcium 8.3 mg/dL (8.5-10.1) L 01/07/22 21:30 Corrected Calcium 9.7 mg/dL (8.5-10.1) 01/07/22 21:30 Total Bilirubin 12.00 mg/dL (0.2-1.0) H 01/07/22 21:30 AST 31 Units/L (15-37) 01/07/22 21:30 ALT 17 Units/L (12-78) 01/07/22 21:30 Alkaline Phosphatase 122 Units/L (46-116) H 01/07/22 21:30 Ammonia 90 umol/L (11-32) H 01/07/22 21:54 Creatine Kinase 42 Units/L (39-308) 01/07/22 21:30 CK-MB (CK-2) 1.1 ng/mL (0-4.0) 01/07/22 21:30 CK/CKMB % Calc 2.6 % (<4) 01/07/22 21:30 Troponin I High Sens 13.8 ng/L (4.0-60.0) 01/07/22 21:30 Total Protein 5.5 g/dL (6.4-8.2) L 01/07/22 21:30 Albumin 2.2 g/dL (3.4-5.0) L 01/07/22 21:30 Globulin 3.3 g/dL (2.5-4.5) 01/07/22 21:30 Albumin/Globulin Ratio 0.7 Ratio (1.1-2.1) L 01/07/22 21:30 Specimen Type Clean catch urine 01/07/22 23:37 Urine Color Yanni (YELLOW) 01/07/22 23:37 Urine Appearance Clear (CLEAR) 01/07/22 23:37 Urine pH 7.0 (5.0 - 8.0) 01/07/22 23:37 Ur Specific [place] 1.010 (1.000-1.030) 01/07/22 23:37 Urine Protein 1+ (NEGATIVE) 01/07/22 23:37 Urine Glucose (UA) Negative (NEGATIVE) 01/07/22 23:37 Urine Ketones Negative (NEGATIVE) 01/07/22 23:37 Urine Occult Blood 2+ (NEGATIVE) 01/07/22 23:37 Urine Nitrite Negative (NEGATIVE) 01/07/22 23:37 Urine Bilirubin 1+ (NEGATIVE) 01/07/22 23:37 Urine Urobilinogen 3+ (NORMAL) 01/07/22 23:37 Ur Leukocyte Esterase Negative (NEGATIVE) 01/07/22 23:37 Urine RBC 0-2 /HPF (0-3) 01/07/22 23:37 Urine WBC None seen /HPF (0-5) 01/07/22 23:37 Ur Squamous Epith Cells Negative /HPF (NEGATIVE) 01/07/22 23:37 Urine Bacteria Trace /HPF (NEGATIVE) 01/07/22 23:37 Ur Culture Indicated? No/not indicated 01/07/22 23:37 Urine Opiates Screen Positive (NEG=<300) 01/07/22 23:37 Urine Methadone Screen Negative (NEG=<300) 01/07/22 23:37 Ur Barbiturates Screen Negative (NEG=<200) 01/07/22 23:37 Ur Phencyclidine Scrn Negative (NEG=<25) 01/07/22 23:37 Ur Amphetamines Screen Negative (NEG=<1000) 01/07/22 23:37 U Benzodiazepines Scrn Negative (NEG=<200) 01/07/22 23:37 Urine Cocaine Screen Negative (NEG=<300) 01/07/22 23:37 U Marijuana (THC) Screen Positive (NEG=<50) A 01/07/22 23:37 Ethyl Alcohol mg/dL < 3 mg/dL (0-19.9) 01/07/22 21:30 SARS CoV-2 RNA Rapid ADAM Negative (NEGATIVE) 01/07/22 23:14 XRAY XRAY Interpreted by: Radiologist (REPORT NOTED AND DISCUSSED WITH PATIENT.) and Self EKG Rate: 98 Nash: Normal Rhythm: NSR Block: 1 Hypertrophy: None ST: Nonsp Opioid Opioid Risk Tool Age (Moises box if 16-45): No History of Preadolescent Sexual Abuse: No Total: 0 Total Score Risk Category: Low Risk Copyright: King LR predicting aberrant behaviors Diagnosis Discharge Problem: Thrombocytopenia, Hypercoagulable state, Hyperbilirubinemia, Dehydration, Encephalopathy, hepatic Cirrhosis of liver Qualifiers: Hepatic cirrhosis type: alcoholic cirrhosis Ascites presence: with ascites Qualified Code(s): K70.31 - Alcoholic cirrhosis of liver with ascites Instructions Instructions: Hepatic Encephalopathy Fatigue Alcoholic Liver Disease, [id number] Antibiotic Medicine, Adult, [id number] Abdominal Pain, Adult, [id number] Urinary Tract Infection, Adult Liver Failure Weakness, [id number] Tremor Forms: Precautions for COVID19 [facility] Social Distancing
[2022-01-07 21:44] LABS: LYMPHOCYTES # (AUTO) 0.3 X10^3/uL (1.3-2.9); NEUTROPHILS # (AUTO) 1.9 x10^3/uL (2.2-4.8); WHITE BLOOD COUNT 2.6 X10^3/uL (3.6-10.0)
[2022-01-07 21:48] LABS: BASOPHILS % (AUTO) 0.5 % (0.2-1.0); EOSINOPHILS % (AUTO) 1.2 % (0.9-2.9); HEMATOCRIT 25.9 % (42.0-54.0); HEMOGLOBIN 9.1 g/dL (13.5-18.0); LYMPHOCYTES % (AUTO) 11.7 % (21.0-51.0); MEAN CORPUSCULAR HEMOGLOBIN 37.9 pg (27.0-34.0); MEAN CORPUSCULAR HGB CONC 35.1 g/dL (33.0-35.0); MEAN CORPUSCULAR VOLUME 108.2 fL (80.0-100.0); MEAN PLATELET VOLUME 8.2 fL (7.4-11.0); MONOCYTES # (AUTO) 0.4 x10^3/uL (0.3-0.8); MONOCYTES % (AUTO) 15.4 % (0.0-13.0); NEUTROPHILS % (AUTO) 71.2 % (42.0-75.0); RED BLOOD COUNT 2.39 X10^6/uL (4.7-6.0); RED CELL DISTRIBUTION WIDTH 15.8 % (11.6-16.5)
[2022-01-07 21:55] LABS: ALANINE AMINOTRANSFERASE 17 Units/L (12-78); ALBUMIN 2.2 g/dL (3.4-5.0); ALKALINE PHOSPHATASE 122 Units/L (46-116); ASPARTATE AMINO TRANSFERASE 31 Units/L (15-37); BLOOD UREA NITROGEN 17 mg/dL (7-18); CALCIUM 8.3 mg/dL (8.5-10.1); CARBON DIOXIDE 26.9 mmol/L (21-32); CHLORIDE 107 mmol/L (98-107); CKMB % 2.6 % (<4); COR CA(FOR HYPOALB) 9.7 mg/dL (8.5-10.1); COR NA(FOR HYPERGLY) 139 mmol/L (136-145); CREATINE KINASE 42 Units/L (39-308); CREATINE KINASE MB 1.1 ng/mL (0-4.0); CREATININE 1.07 mg/dL (0.70-1.30); SODIUM 138 mmol/L (136-145); TOTAL PROTEIN 5.5 g/dL (6.4-8.2); eGFR NON BLACK RACES > 60 (>60)
[2022-01-07 21:58] LABS: ANISOCYTOSIS SLIGHT; PLATELET MORPHOLOGY COMMENT NORMAL (NORMAL); POIKILOCYTOSIS 2+; TARGET CELLS PRESENT; TEAR DROP CELLS PRESENT
[2022-01-07] MEDS ORDERED: NS 1,000 ML IV 1,000 ML ONE (22:00)
[2022-01-07] MEDS ORDERED: NS 1,000 ML IV 1,000 ML IV SCH (22:00)
[2022-01-07] MEDS ORDERED: ZOFRAN INJ 4 MG VIAL IVP ONE (23:20)
[2022-01-07] MEDS ORDERED: MORPHINE SULFATE INJ 4 MG IVP ONE (23:20)
[2022-01-07] MEDS ORDERED: ZOFRAN INJ 4 MG VIAL ONE (23:24)
[2022-01-07] MEDS ORDERED: MORPHINE SULFATE INJ 4 MG ONE (23:24)
[2022-01-07 23:58] LABS: BILIRUBIN,URINE 1+ (NEGATIVE); BLOOD/HEMOGLOBIN,URINE 2+ (NEGATIVE); GLUCOSE, URINE NEGATIVE (NEGATIVE); KETONES,URINE NEGATIVE (NEGATIVE); LEUKOCYTE ESTERASE ,URINE NEGATIVE (NEGATIVE); NITRITES,URINE NEGATIVE (NEGATIVE); PROTEIN,URINE 1+ (NEGATIVE); UROBILINOGEN,URINE 3+ (NORMAL)
[2022-01-08 00:17] LABS: APPEARANCE,URINE CLEAR (CLEAR); COLOR,URINE AMBER (YELLOW)
[2022-01-08 00:18] LABS: BACTERIA,URINE TRACE /HPF (NEGATIVE); RBC,URINE 0-2 /HPF (0-3); SQUAMOUS EPITHELIAL CELL,UR NEGATIVE /HPF (NEGATIVE)
[2022-01-08] MEDS ORDERED: AQUA-MEPHYTON ADULT INJ SC ONE (00:50)
[2022-01-08] MEDS ORDERED: ZOFRAN INJ 4 MG VIAL IVP PRN (01:28)
[2022-01-08] MEDS ORDERED: PEPCID 20 MG IV PREMIX* 20 MG/50 ML BAG IV PRN (01:28)
[2022-01-08] MEDS: NS 1,000 ML IV 1,000 ML IV SCH ×5 (02:13→21:44)
[2022-01-08] MEDS: MORPHINE SULFATE INJ 2 MG INJ IVP PRN ×3 (02:46→17:50)
[2022-01-08 03:36] VITALS: BMI 26.2
[2022-01-08 05:54] LABS: BILIRUBIN,URINE 1+ (NEGATIVE); BLOOD/HEMOGLOBIN,URINE 3+ (NEGATIVE); GLUCOSE, URINE NEGATIVE (NEGATIVE); KETONES,URINE NEGATIVE (NEGATIVE); LEUKOCYTE ESTERASE ,URINE 1+ (NEGATIVE); NITRITES,URINE NEGATIVE (NEGATIVE); PROTEIN,URINE 1+ (NEGATIVE); UROBILINOGEN,URINE 2+ (NORMAL)
[2022-01-08 06:06] LABS: BASOPHILS % (AUTO) 0.3 % (0.2-1.0); EOSINOPHILS # (AUTO) 0.1 x10^3/uL (0.0-0.2); EOSINOPHILS % (AUTO) 2.4 % (0.9-2.9); HEMATOCRIT 23.2 % (42.0-54.0); HEMOGLOBIN 7.9 g/dL (13.5-18.0); LYMPHOCYTES # (AUTO) 0.5 X10^3/uL (1.3-2.9); LYMPHOCYTES % (AUTO) 18.7 % (21.0-51.0); MEAN CORPUSCULAR HEMOGLOBIN 36.9 pg (27.0-34.0); MEAN CORPUSCULAR VOLUME 108.3 fL (80.0-100.0); MEAN PLATELET VOLUME 8.3 fL (7.4-11.0); MONOCYTES # (AUTO) 0.3 x10^3/uL (0.3-0.8); MONOCYTES % (AUTO) 11.8 % (0.0-13.0); NEUTROPHILS # (AUTO) 1.9 x10^3/uL (2.2-4.8); NEUTROPHILS % (AUTO) 66.8 % (42.0-75.0); RED BLOOD COUNT 2.14 X10^6/uL (4.7-6.0); RED CELL DISTRIBUTION WIDTH 15.7 % (11.6-16.5); WHITE BLOOD COUNT 2.8 X10^3/uL (3.6-10.0)
[2022-01-08 06:13] LABS: APPEARANCE,URINE SLIGHTLY HAZY (CLEAR); COLOR,URINE AMBER (YELLOW)
[2022-01-08 06:15] LABS: BACTERIA,URINE TRACE /HPF (NEGATIVE); SQUAMOUS EPITHELIAL CELL,UR RARE /HPF (NEGATIVE)
[2022-01-08 06:39] LABS: ALANINE AMINOTRANSFERASE 15 Units/L (12-78); ALKALINE PHOSPHATASE 107 Units/L (46-116); ASPARTATE AMINO TRANSFERASE 29 Units/L (15-37); BLOOD UREA NITROGEN 16 mg/dL (7-18); CALCIUM 7.6 mg/dL (8.5-10.1); CARBON DIOXIDE 26.6 mmol/L (21-32); CHLORIDE 108 mmol/L (98-107); COR CA(FOR HYPOALB) 9.2 mg/dL (8.5-10.1); CREATININE 0.83 mg/dL (0.70-1.30); SODIUM 138 mmol/L (136-145); eGFR NON BLACK RACES > 60 (>60)
[2022-01-08 07:14] LABS: ANISOCYTOSIS SLIGHT; PLATELET MORPHOLOGY COMMENT NORMAL (NORMAL); POIKILOCYTOSIS 1+; TEAR DROP CELLS PRESENT
[2022-01-08] MEDS ORDERED: ATARAX TAB 25 MG PO PRN (12:29)
[2022-01-08] MEDS: PEPCID TAB 20 MG PO SCH ×2 (13:28→21:43)
[2022-01-08] MEDS: REQUIP PO SCH ×2 (13:29→21:43)
[2022-01-08] MEDS: K-DUR TAB 20 MEQ PO SCH (13:29)
[2022-01-08] MEDS: ALDACTONE TAB 25 MG PO SCH ×2 (13:29→21:43)
[2022-01-08] MEDS: XIFAXAN PO SCH ×2 (13:29→21:43)
[2022-01-08] MEDS: FOLIC ACID TAB 1 MG PO SCH (13:29)
[2022-01-08] MEDS: ROXICODONE TAB 5 MG PO PRN (13:30)
[2022-01-08] MEDS: LASIX PO SCH (13:30)
[2022-01-08] MEDS ORDERED: MORPHINE SULFATE INJ 2 MG INJ IVP PRN (17:51)
--- NOTE | 2022-01-08 18:29 | DR.H&P ---
H&P - History & Physical for Day of: H&P Date: 01/07/22 - Chief Complaint Chief Complaint: weakness, tremors - History of Present Illness History of Present Illness: Patient is a 46 year old white male who was admitted due to weakness and tremors. Patient reports he had been having so much weakness that he was unable to ambulate and tremors so bad he has been unable to feed self. Patient has a history of alcoholic liver cirrhosis and is following up outpatient with [facility] in [place] regarding liver transplant. Patient is not yet on the list. Patient states he has not drank alcohol in 6 years. 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 Denies nausea and vomiting or SOB. No other concerns at present. - Past Medical History Past Medical History: Cirrhosis Additional Medical History: Mitral Valve Prolapse, HYPERTROPHIC CARDIOMYOPATHY. DIASTOLIC DYSFUNCTION - Past Surgical History Surgical History: Lithotripsy, Other Additional Surgical History: Abdominal Paracentesis, Liver Biopsy - Family History Family Medical History: Diabetes Mellitus, Coronary Artery Disease - Social History Does patient currently use any type of tobacco product: Yes Have you used tobacco products in the last 12 months: Yes Type of Tobacco Use: Cigarettes Alcohol Use: None Drug Use: None - Medications Home Medications: No Known Drug Allergies Allergy (Verified 07/28/20 12:45) CONTINUE taking the following medications amitriptyline 10 mg PO DAILY 01/08/22 [History] doxepin 50 mg PO DAILY 01/08/22 [History] famotidine 20 mg PO BID 01/08/22 [History] furosemide 40 mg PO DAILY 01/08/22 [History] oxycodone 5 mg PO PRN PRN 01/08/22 [History] rifaximin [Xifaxan] 550 mg PO BID 01/08/22 [History] - Review of Systems Constitutional: See HPI Eyes: See HPI ENT: See HPI Respiratory: See HPI Cardiovascular: See HPI Gastrointestinal: See HPI Genitourinary: See HPI Musculoskeletal: See HPI Skin: See HPI Neurological: See HPI - Physical Exam Vital Signs: Temperature 98.7 F Pulse Rate [Right Brachial] 99 Pulse Rate 101 Respiratory Rate 18 Blood Pressure [Right Arm] 137/63 Blood Pressure 144/72 O2 Sat by Pulse Oximetry 95 Oriented: Normal, Time, Person, Place Eyes: Other (Jaundice) Ear: Normal Nose: Normal Throat: Normal Respiratory: Clear Throughout Cardiovascular: Normal : Normal Auscultation: Bowel Sounds: Normal Palpation: Normal Tenderness: Normal Skin: Other (Jaundice) Musculoskeletal: Back:Lumbar, Tender (Weakness), Instability Psychiatric: Anxiety Mood Description: Anxious Affect: Anxious Speech Pattern: Clear, Appropriate - Assessment/Plan (1) Generalized weakness Status: Acute (2) Cirrhosis, alcoholic Qualifiers: Ascites presence: with ascites Qualified Code(s): K70.31 - Alcoholic cirrhosis of liver with ascites Status: Chronic (3) Thrombocytopenia Status: Acute Plan: Acute on chronic. Platelets ordered (4) Anxiety Status: Chronic (5) Anemia Qualifiers: Anemia type: iron deficiency Iron deficiency anemia type: other iron d eficiency Qualified Code(s): D50.8 - Other iron deficiency anemias Status: Chronic (6) Hyperammonemia Status: Chronic Plan: Lactulose (7) Hypercoagulable state Status: Chronic (8) Dehydration Status: Acute (9) Tremor Status: Acute - Allergies Allergies/Adverse Reactions: Allergies Allergy/AdvReac Type Severity Reaction Status Date / Time No Known Drug Allergies Allergy Verified 07/28/20 12:45
--- NOTE | 2022-01-08 18:52 | PCM.PROG ---
Progress Note - Subjective Subjective: Patient was admitted as per HPI. Patient reports remors and weakness continued. No other concerns/changes from previous. Patient pending Platelet transfusion. Patient reports anxiety today. Patient states he has chronic anxiety. - Past Medical Family Social History Past Med/Fam/Surg Hx: No changes since H&P Allergies: Allergies No Known Drug Allergies Allergy (Verified 07/28/20 12:45) - Review of Systems ROS: No change since H&P - Vital Signs and I&O's Vital Signs: Temperature 98.7 F Pulse Rate [Right Brachial] 99 Pulse Rate 101 Respiratory Rate 18 Blood Pressure [Right Arm] 137/63 Blood Pressure 144/72 O2 Sat by Pulse Oximetry 95 Intake and Output: Intake & Output 01/05/22 01/06/22 01/07/22 01/08/22 23:59 23:59 23:59 23:59 Intake Total 2485 / 2485 Balance 2485 / 2485 - Physical Exam Oriented: Normal, Time, Person, Place Eyes: Other (Jaundice) Ear: Normal Nose: Normal Throat: Normal Cardiovascular: Normal : Normal Auscultation: Bowel Sounds: Normal Palpation: Normal Tenderness: Normal Skin: Other (Jaundice) Musculoskeletal: Back:Lumbar, Tender (Weakness), Instability Psychiatric: Anxiety Mood Description: Anxious Affect: Anxious Speech Pattern: Clear, Appropriate - Laboratory and Diagnostics Result Diagrams: 01/08/22 14:51 01/08/22 05:16 Labs: Laboratory WBC 2.8 X10^3/uL (3.6-10.0) L 01/08/22 05:16 RBC 2.14 X10^6/uL (4.7-6.0) L 01/08/22 05:16 Hgb 7.9 g/dL (13.5-18.0) L 01/08/22 05:16 Hct 23.2 % (42.0-54.0) L 01/08/22 05:16 MCV 108.3 fL (80.0-100.0) H 01/08/22 05:16 MCH 36.9 pg (27.0-34.0) H 01/08/22 05:16 MCHC 34.0 g/dL (33.0-35.0) 01/08/22 05:16 RDW 15.7 % (11.6-16.5) 01/08/22 05:16 Plt Count 29 X10^3/uL (150.0-450.0) L 01/08/22 14:51 Plt Count Comment Decreased (ADEQUATE) 01/08/22 05:16 MPV 8.3 fL (7.4-11.0) 01/08/22 05:16 Neut % (Auto) 66.8 % (42.0-75.0) 01/08/22 05:16 Lymph % (Auto) 18.7 % (21.0-51.0) L 01/08/22 05:16 [place] % (Auto) 11.8 % (0.0-13.0) 01/08/22 05:16 Eos % (Auto) 2.4 % (0.9-2.9) 01/08/22 05:16 Baso % (Auto) 0.3 % (0.2-1.0) 01/08/22 05:16 Neut # (Auto) 1.9 x10^3/uL (2.2-4.8) L 01/08/22 05:16 Lymph # (Auto) 0.5 X10^3/uL (1.3-2.9) L 01/08/22 05:16 [place] # (Auto) 0.3 x10^3/uL (0.3-0.8) 01/08/22 05:16 Eos # (Auto) 0.1 x10^3/uL (0.0-0.2) 01/08/22 05:16 Baso # (Auto) 0.0 X10^3/uL (0.0-0.1) 01/08/22 05:16 Absolute Nucleated RBC 0.0 /100WBC 01/08/22 05:16 Plt Morphology Comment Normal (NORMAL) 01/08/22 05:16 RBC Morphology Abnormal (NORMAL) 01/08/22 05:16 Poikilocytosis 1+ A 01/08/22 05:16 Anisocytosis Slight A 01/08/22 05:16 Macrocytosis 1+ A 01/08/22 05:16 Target Cells Present 01/07/22 21:30 Tear Drop Cells Present 01/08/22 05:16 Acanthocytes (Spur) Present 01/08/22 05:16 PT 30.4 SECONDS (11.8-14.3) 01/08/22 05:16 INR Target Range - 01/08/22 05:16 INR 3.08 (0.8-1.3) H 01/08/22 05:16 APTT 57.9 SECONDS (22.9-36.5) H 01/08/22 05:16 PTT Comment - 01/08/22 05:16 Sodium 138 mmol/L (136-145) 01/08/22 05:16 Corrected Sodium TNP 01/08/22 05:16 Potassium 4.0 mmol/L (3.5-5.1) 01/08/22 05:16 Chloride 108 mmol/L (98-107) H 01/08/22 05:16 Carbon Dioxide 26.6 mmol/L (21-32) 01/08/22 05:16 BUN 16 mg/dL (7-18) 01/08/22 05:16 Creatinine 0.83 mg/dL (0.70-1.30) 01/08/22 05:16 Est GFR (MDRD) Af Amer > 60 (>60) 01/08/22 05:16 Est GFR (MDRD) Non-Af > 60 (>60) 01/08/22 05:16 Glucose 87 mg/dL (65-99) 01/08/22 05:16 Calcium 7.6 mg/dL (8.5-10.1) L 01/08/22 05:16 Corrected Calcium 9.2 mg/dL (8.5-10.1) 01/08/22 05:16 Total Bilirubin 11.10 mg/dL (0.2-1.0) H 01/08/22 05:16 AST 29 Units/L (15-37) 01/08/22 05:16 ALT 15 Units/L (12-78) 01/08/22 05:16 Alkaline Phosphatase 107 Units/L (46-116) 01/08/22 05:16 Ammonia 42 umol/L (11-32) H 01/08/22 05:16 Creatine Kinase 42 Units/L (39-308) 01/07/22 21:30 CK-MB (CK-2) 1.1 ng/mL (0-4.0) 01/07/22 21:30 CK/CKMB % Calc 2.6 % (<4) 01/07/22 21:30 Troponin I High Sens 13.8 ng/L (4.0-60.0) 01/07/22 21:30 Total Protein 5.0 g/dL (6.4-8.2) L 01/08/22 05:16 Albumin 2.0 g/dL (3.4-5.0) L 01/08/22 05:16 Globulin 3.0 g/dL (2.5-4.5) 01/08/22 05:16 Albumin/Globulin Ratio 0.7 Ratio (1.1-2.1) L 01/08/22 05:16 Specimen Type Clean catch urine 01/08/22 05:32 Urine Color Yanni (YELLOW) 01/08/22 05:32 Urine Appearance Slightly hazy (CLEAR) 01/08/22 05:32 Urine pH 7.0 (5.0 - 8.0) 01/08/22 05:32 Ur Specific Speed 1.010 (1.000-1.030) 01/08/22 05:32 Urine Protein 1+ (NEGATIVE) 01/08/22 05:32 Urine Glucose (UA) Negative (NEGATIVE) 01/08/22 05:32 Urine Ketones Negative (NEGATIVE) 01/08/22 05:32 Urine Occult Blood 3+ (NEGATIVE) 01/08/22 05:32 Urine Nitrite Negative (NEGATIVE) 01/08/22 05:32 Urine Bilirubin 1+ (NEGATIVE) 01/08/22 05:32 Urine Urobilinogen 2+ (NORMAL) 01/08/22 05:32 Ur Leukocyte Esterase 1+ (NEGATIVE) 01/08/22 05:32 Urine RBC 10-20 /HPF (0-3) A 01/08/22 05:32 Urine WBC 3-5 /HPF (0-5) 01/08/22 05:32 Ur Squamous Epith Cells Rare /HPF (NEGATIVE) 01/08/22 05:32 Urine Bacteria Trace /HPF (NEGATIVE) 01/08/22 05:32 Ur Culture Indicated? No/not indicated 01/08/22 05:32 Urine Opiates Screen Positive (NEG=<300) 01/07/22 23:37 Urine Methadone Screen Negative (NEG=<300) 01/07/22 23:37 Ur Barbiturates Screen Negative (NEG=<200) 01/07/22 23:37 Ur Phencyclidine Scrn Negative (NEG=<25) 01/07/22 23:37 Ur Amphetamines Screen Negative (NEG=<1000) 01/07/22 23:37 U Benzodiazepines Scrn Negative (NEG=<200) 01/07/22 23:37 Urine Cocaine Screen Negative (NEG=<300) 01/07/22 23:37 U Marijuana (THC) Screen Positive (NEG=<50) A 01/07/22 23:37 Ethyl Alcohol mg/dL < 3 mg/dL (0-19.9) 01/07/22 21:30 SARS CoV-2 RNA Rapid ADAM Negative (NEGATIVE) 01/07/22 23:14 Blood Type A NEGATIVE 01/08/22 01:07 - Plan (1) Generalized weakness Status: Acute (2) Cirrhosis, alcoholic Status: Chronic Qualifiers: Ascites presence: with ascites Qualified Code(s): K70.31 - Alcoholic cirrhosis of liver with ascites (3) Thrombocytopenia Status: Acute Plan: Acute on chronic. Platelets ordered (4) Anxiety Status: Chronic (5) Anemia Status: Chronic Qualifiers: Anemia type: iron deficiency Iron deficiency anemia type: other iron deficiency Qualified Code(s): D50.8 - Other iron deficiency anemias (6) Hyperammonemia Status: Chronic Plan: Lactulose (7) Hypercoagulable state Status: Chronic (8) Dehydration Status: Acute (9) Tremor Status: Acute
[2022-01-08] MEDS: DESYREL PO SCH (21:43)
[2022-01-08] MEDS: SINEquan PO SCH (21:43)
[2022-01-08] MEDS: ELAVIL PO SCH (21:43)
[2022-01-08] MEDS: CHRONULAC PO SCH (21:43)
[2022-01-09] MEDS: NS 1,000 ML IV 1,000 ML IV SCH ×6 (03:40→22:15)
[2022-01-09 06:11] LABS: BASOPHILS % (AUTO) 0.3 % (0.2-1.0); EOSINOPHILS # (AUTO) 0.1 x10^3/uL (0.0-0.2); EOSINOPHILS % (AUTO) 1.7 % (0.9-2.9); HEMATOCRIT 22.5 % (42.0-54.0); HEMOGLOBIN 7.8 g/dL (13.5-18.0); LYMPHOCYTES # (AUTO) 0.6 X10^3/uL (1.3-2.9); LYMPHOCYTES % (AUTO) 19.6 % (21.0-51.0); MEAN CORPUSCULAR HEMOGLOBIN 36.8 pg (27.0-34.0); MEAN CORPUSCULAR HGB CONC 34.8 g/dL (33.0-35.0); MEAN PLATELET VOLUME 8.1 fL (7.4-11.0); MONOCYTES # (AUTO) 0.4 x10^3/uL (0.3-0.8); MONOCYTES % (AUTO) 12.1 % (0.0-13.0); NEUTROPHILS % (AUTO) 66.3 % (42.0-75.0); RED BLOOD COUNT 2.12 X10^6/uL (4.7-6.0)
[2022-01-09 06:30] LABS: AMMONIA 24 umol/L (11-32)
[2022-01-09 06:40] LABS: ALANINE AMINOTRANSFERASE 16 Units/L (12-78); ALKALINE PHOSPHATASE 114 Units/L (46-116); ASPARTATE AMINO TRANSFERASE 33 Units/L (15-37); BLOOD UREA NITROGEN 14 mg/dL (7-18); CALCIUM 7.7 mg/dL (8.5-10.1); CARBON DIOXIDE 23.1 mmol/L (21-32); CHLORIDE 109 mmol/L (98-107); COR CA(FOR HYPOALB) 9.3 mg/dL (8.5-10.1); CREATININE 0.87 mg/dL (0.70-1.30); SODIUM 139 mmol/L (136-145); TOTAL PROTEIN 5.3 g/dL (6.4-8.2); eGFR NON BLACK RACES > 60 (>60)
[2022-01-09 07:28] LABS: PLATELET MORPHOLOGY COMMENT NORMAL (NORMAL)
[2022-01-09 07:29] LABS: POIKILOCYTOSIS 1+; TEAR DROP CELLS PRESENT
[2022-01-09] MEDS: ROXICODONE TAB 5 MG PO PRN ×2 (07:32→21:20)
[2022-01-09] MEDS: PEPCID TAB 20 MG PO SCH ×2 (08:58→21:34)
[2022-01-09] MEDS: LASIX PO SCH (08:58)
[2022-01-09] MEDS: XIFAXAN PO SCH ×2 (08:58→21:33)
[2022-01-09] MEDS: ALDACTONE TAB 25 MG PO SCH ×2 (08:58→21:33)
[2022-01-09] MEDS: REQUIP PO SCH ×2 (08:58→21:33)
[2022-01-09] MEDS: FOLIC ACID TAB 1 MG PO SCH (08:59)
[2022-01-09] MEDS: K-DUR TAB 20 MEQ PO SCH (08:59)
--- NOTE | 2022-01-09 14:33 | CT ---
HISTORYCONFUSION, TREMORSSTUDYBRAIN W/O CONCOMPARISONCT brain from 09/07/2021.TECHNIQUEMultiple axial images of the head were performed from the skullbase to the vertex using standard departmental protocol. Sagittal and coronal reformatted images were performed. Dose reduction techniques including Automated Exposure Control (AEC) and adjustment of mA and kV were utilized.FINDINGSThe lateral ventricles and basilar cisterns are patent.No parenchymal mass or hematoma. Gorman-white differentiation appears acutely preserved.No extra-axial collection.The globes are intact.No air fluid levels in the paranasal sinuses. No paranasal sinus wall thickening or sclerosis. Mastoid air cells are clear.The calvarium is intact. Peripherally calcified pineal gland cyst noted. See image 18 series 5.IMPRESSIONNo acute intracranial abnormality.Electronically signed by: Marc Polanco (Jan 09, 2022 14:31:58)
[2022-01-09] MEDS: SINEquan PO SCH (21:33)
[2022-01-09] MEDS: ELAVIL PO SCH (21:34)
[2022-01-09] MEDS: DESYREL PO SCH (21:34)
[2022-01-09] MEDS: CHRONULAC PO SCH (21:35)
--- NOTE | 2022-01-10 01:25 | PCM.PROG ---
Progress Note - Progress Note for Day of Date of Exam: 01/09/22 - Subjective Subjective: Patient was admitted as per HPI. Patient reports Tremors and weakness continued. No other concerns/changes from previous. Patient reports weakness so significant he is unable to ambulate without assistance and tremors so significant he is unable to feed selt due to food spilling off of fork. All theses symptosm are likely to be related to chronic live failure however christiano perfomre CT head wo to rule out other etiology. - Past Medical Family Social History Past Med/Fam/Surg Hx: No changes since H&P Allergies: Allergies No Known Drug Allergies Allergy (Verified 07/28/20 12:45) - Review of Systems ROS: No change since H&P - Vital Signs and I&O's Vital Signs: Temperature 98.3 F Pulse Rate [Right Brachial] 110 Pulse Rate 101 Respiratory Rate 18 Blood Pressure [Right Arm] 124/69 Blood Pressure 144/72 O2 Sat by Pulse Oximetry 99 Intake and Output: Intake & Output 01/07/22 01/08/22 01/09/22 01/10/22 23:59 23:59 23:59 23:59 Intake Total 3635 / 3635 2332 / 2332 Output Total 400 / 400 300 / 300 Balance 3235 / 3235 2031 - Physical Exam Oriented: Normal, Time, Person, Place Eyes: Other (Jaundice) Ear: Normal Nose: Normal Throat: Normal Respiratory: Normal Cardiovascular: Normal : Normal Auscultation: Bowel Sounds: Normal Palpation: Normal Tenderness: Normal Skin: Other (Jaundice) Musculoskeletal: Back:Lumbar, Tender (Weakness), Instability Psychiatric: Anxiety Mood Description: Anxious Affect: Anxious Speech Pattern: Clear, Appropriate - Laboratory and Diagnostics Result Diagrams: 01/09/22 05:15 01/09/22 05:15 Labs: 01/08/22 17:40 Urine,Clean Catch Urine Culture - Preliminary Laboratory WBC 3.0 X10^3/uL (3.6-10.0) L 01/09/22 05:15 RBC 2.12 X10^6/uL (4.7-6.0) L 01/09/22 05:15 Hgb 7.8 g/dL (13.5-18.0) L 01/09/22 05:15 Hct 22.5 % (42.0-54.0) L 01/09/22 05:15 MCV 106.0 fL (80.0-100.0) H 01/09/22 05:15 MCH 36.8 pg (27.0-34.0) H 01/09/22 05:15 MCHC 34.8 g/dL (33.0-35.0) 01/09/22 05:15 RDW 15.0 % (11.6-16.5) 01/09/22 05:15 Plt Count 28 X10^3/uL (150.0-450.0) L 01/09/22 05:15 Plt Count Comment Decreased (ADEQUATE) 01/09/22 05:15 MPV 8.1 fL (7.4-11.0) 01/09/22 05:15 Neut % (Auto) 66.3 % (42.0-75.0) 01/09/22 05:15 Lymph % (Auto) 19.6 % (21.0-51.0) L 01/09/22 05:15 [place] % (Auto) 12.1 % (0.0-13.0) 01/09/22 05:15 Eos % (Auto) 1.7 % (0.9-2.9) 01/09/22 05:15 Baso % (Auto) 0.3 % (0.2-1.0) 01/09/22 05:15 Neut # (Auto) 2.0 x10^3/uL (2.2-4.8) L 01/09/22 05:15 Lymph # (Auto) 0.6 X10^3/uL (1.3-2.9) L 01/09/22 05:15 [place] # (Auto) 0.4 x10^3/uL (0.3-0.8) 01/09/22 05:15 Eos # (Auto) 0.1 x10^3/uL (0.0-0.2) 01/09/22 05:15 Baso # (Auto) 0.0 X10^3/uL (0.0-0.1) 01/09/22 05:15 Absolute Nucleated RBC 0.1 /100WBC 01/09/22 05:15 Plt Morphology Comment Normal (NORMAL) 01/09/22 05:15 RBC Morphology Abnormal (NORMAL) 01/09/22 05:15 Poikilocytosis 1+ A 01/09/22 05:15 Anisocytosis Slight A 01/08/22 05:16 Macrocytosis 1+ A 01/09/22 05:15 Target Cells Present 01/07/22 21:30 Tear Drop Cells Present 01/09/22 05:15 Acanthocytes (Spur) Present 01/08/22 05:16 PT 30.2 SECONDS (11.8-14.3) 01/09/22 05:15 INR Target Range - 01/09/22 05:15 INR 3.05 (0.8-1.3) H 01/09/22 05:15 APTT 57.9 SECONDS (22.9-36.5) H 01/08/22 05:16 PTT Comment - 01/08/22 05:16 Sodium 139 mmol/L (136-145) 01/09/22 05:15 Corrected Sodium TNP 01/09/22 05:15 Potassium 4.0 mmol/L (3.5-5.1) 01/09/22 05:15 Chloride 109 mmol/L (98-107) H 01/09/22 05:15 Carbon Dioxide 23.1 mmol/L (21-32) 01/09/22 05:15 BUN 14 mg/dL (7-18) 01/09/22 05:15 Creatinine 0.87 mg/dL (0.70-1.30) 01/09/22 05:15 Est GFR (MDRD) Af Amer > 60 (>60) 01/09/22 05:15 Est GFR (MDRD) Non-Af > 60 (>60) 01/09/22 05:15 Glucose 105 mg/dL (65-99) H 01/09/22 05:15 Calcium 7.7 mg/dL (8.5-10.1) L 01/09/22 05:15 Corrected Calcium 9.3 mg/dL (8.5-10.1) 01/09/22 05:15 Total Bilirubin 8.80 mg/dL (0.2-1.0) H 01/09/22 05:15 AST 33 Units/L (15-37) 01/09/22 05:15 ALT 16 Units/L (12-78) 01/09/22 05:15 Alkaline Phosphatase 114 Units/L (46-116) 01/09/22 05:15 Ammonia 24 umol/L (11-32) 01/09/22 05:15 Creatine Kinase 42 Units/L (39-308) 01/07/22 21:30 CK-MB (CK-2) 1.1 ng/mL (0-4.0) 01/07/22 21:30 CK/CKMB % Calc 2.6 % (<4) 01/07/22 21:30 Troponin I High Sens 13.8 ng/L (4.0-60.0) 01/07/22 21:30 Total Protein 5.3 g/dL (6.4-8.2) L 01/09/22 05:15 Albumin 2.0 g/dL (3.4-5.0) L 01/09/22 05:15 Globulin 3.3 g/dL (2.5-4.5) 01/09/22 05:15 Albumin/Globulin Ratio 0.6 Ratio (1.1-2.1) L 01/09/22 05:15 Specimen Type Clean catch urine 01/08/22 05:32 Urine Color Yanni (YELLOW) 01/08/22 05:32 Urine Appearance Slightly hazy (CLEAR) 01/08/22 05:32 Urine pH 7.0 (5.0 - 8.0) 01/08/22 05:32 Ur Specific [place] 1.010 (1.000-1.030) 01/08/22 05:32 Urine Protein 1+ (NEGATIVE) 01/08/22 05:32 Urine Glucose (UA) Negative (NEGATIVE) 01/08/22 05:32 Urine Ketones Negative (NEGATIVE) 01/08/22 05:32 Urine Occult Blood 3+ (NEGATIVE) 01/08/22 05:32 Urine Nitrite Negative (NEGATIVE) 01/08/22 05:32 Urine Bilirubin 1+ (NEGATIVE) 01/08/22 05:32 Urine Urobilinogen 2+ (NORMAL) 01/08/22 05:32 Ur Leukocyte Esterase 1+ (NEGATIVE) 01/08/22 05:32 Urine RBC 10-20 /HPF (0-3) A 01/08/22 05:32 Urine WBC 3-5 /HPF (0-5) 01/08/22 05:32 Ur Squamous Epith Cells Rare /HPF (NEGATIVE) 01/08/22 05:32 Urine Bacteria Trace /HPF (NEGATIVE) 01/08/22 05:32 Ur Culture Indicated? No/not indicated 01/08/22 05:32 Urine Opiates Screen Positive (NEG=<300) 01/07/22 23:37 Urine Methadone Screen Negative (NEG=<300) 01/07/22 23:37 Ur Barbiturates Screen Negative (NEG=<200) 01/07/22 23:37 Ur Phencyclidine Scrn Negative (NEG=<25) 01/07/22 23:37 Ur Amphetamines Screen Negative (NEG=<1000) 01/07/22 23:37 U Benzodiazepines Scrn Negative (NEG=<200) 01/07/22 23:37 Urine Cocaine Screen Negative (NEG=<300) 01/07/22 23:37 U Marijuana (THC) Screen Positive (NEG=<50) A 01/07/22 23:37 Ethyl Alcohol mg/dL < 3 mg/dL (0-19.9) 01/07/22 21:30 SARS CoV-2 RNA Rapid ADAM Negative (NEGATIVE) 01/07/22 23:14 Blood Type A NEGATIVE 01/08/22 01:07 - Plan (1) Generalized weakness Status: Acute (2) Cirrhosis, alcoholic Status: Chronic Qualifiers: Ascites presence: with ascites Qualified Code(s): K70.31 - Alcoholic ci rrhosis of liver with ascites (3) Thrombocytopenia Status: Acute Plan: Acute on chronic. Platelets ordered (4) Anxiety Status: Chronic (5) Anemia Status: Chronic Qualifiers: Anemia type: iron deficiency Iron deficiency anemia type: other iron deficiency Qualified Code(s): D50.8 - Other iron deficiency anemias (6) Hyperammonemia Status: Chronic Plan: Lactulose (7) Hypercoagulable state Status: Chronic (8) Dehydration Status: Acute (9) Tremor Status: Acute (10) Metabolic encephalopathy Status: Chronic
[2022-01-10 06:48] LABS: ALANINE AMINOTRANSFERASE 15 Units/L (12-78); ALBUMIN 1.8 g/dL (3.4-5.0); ALKALINE PHOSPHATASE 102 Units/L (46-116); ASPARTATE AMINO TRANSFERASE 28 Units/L (15-37); BLOOD UREA NITROGEN 10 mg/dL (7-18); CALCIUM 7.3 mg/dL (8.5-10.1); CARBON DIOXIDE 23.9 mmol/L (21-32); CHLORIDE 114 mmol/L (98-107); COR CA(FOR HYPOALB) 9.1 mg/dL (8.5-10.1); CREATININE 0.91 mg/dL (0.70-1.30); SODIUM 145 mmol/L (136-145); TOTAL PROTEIN 4.5 g/dL (6.4-8.2); eGFR NON BLACK RACES > 60 (>60)
[2022-01-10 06:53] LABS: AMMONIA 69 umol/L (11-32)
[2022-01-10 07:15] LABS: BASOPHILS % (AUTO) 0.4 % (0.2-1.0); EOSINOPHILS # (AUTO) 0.1 x10^3/uL (0.0-0.2); EOSINOPHILS % (AUTO) 2.7 % (0.9-2.9); HEMATOCRIT 20.6 % (42.0-54.0); HEMOGLOBIN 7.1 g/dL (13.5-18.0); LYMPHOCYTES # (AUTO) 0.7 X10^3/uL (1.3-2.9); LYMPHOCYTES % (AUTO) 25.8 % (21.0-51.0); MEAN CORPUSCULAR HEMOGLOBIN 36.7 pg (27.0-34.0); MEAN CORPUSCULAR HGB CONC 34.3 g/dL (33.0-35.0); MEAN CORPUSCULAR VOLUME 107.2 fL (80.0-100.0); MEAN PLATELET VOLUME 8.8 fL (7.4-11.0); MONOCYTES # (AUTO) 0.3 x10^3/uL (0.3-0.8); MONOCYTES % (AUTO) 10.8 % (0.0-13.0); NEUTROPHILS # (AUTO) 1.6 x10^3/uL (2.2-4.8); NEUTROPHILS % (AUTO) 60.3 % (42.0-75.0); RED BLOOD COUNT 1.92 X10^6/uL (4.7-6.0); RED CELL DISTRIBUTION WIDTH 15.5 % (11.6-16.5); WHITE BLOOD COUNT 2.6 X10^3/uL (3.6-10.0)
[2022-01-10 07:26] LABS: PLATELET MORPHOLOGY COMMENT NORMAL (NORMAL); POIKILOCYTOSIS 1+; TEAR DROP CELLS PRESENT
[2022-01-10 08:53] VITALS: BP 117/68
[2022-01-10] MEDS: NS 1,000 ML IV 1,000 ML IV SCH (08:53)
[2022-01-10] MEDS: ALDACTONE TAB 25 MG PO SCH (08:54)
[2022-01-10] MEDS: FOLIC ACID TAB 1 MG PO SCH (08:55)
[2022-01-10] MEDS: LASIX PO SCH (08:55)
[2022-01-10] MEDS: PEPCID TAB 20 MG PO SCH (08:55)
[2022-01-10] MEDS: K-DUR TAB 20 MEQ PO SCH (08:55)
[2022-01-10] MEDS: XIFAXAN PO SCH (08:56)
[2022-01-10] MEDS: REQUIP PO SCH (08:56)
[2022-01-10] MEDS: ROXICODONE TAB 5 MG PO PRN (09:33)
[2022-01-10] MEDS ORDERED: ROCEPHIN VIAL 1 GRAM 1 G in NS 100 ML IV + SPIKE MINIBAG* 100 ML IV NR (11:47)
--- NOTE | 2022-02-05 17:34 | PCM.DCPLAN ---
Discharge Plan - Discharge Plan Hospital Course: ADMIT DATE 01/07/22 DISCHARGE DATE 01/10/22 DOS 01/10/22 ADMIT DIAGNOSIS:(1) Generalized weakness (2) Cirrhosis, alcoholic (3) Thrombocytopenia (4) Anxiety (5) Anemia (6) Hyperammonemia (7) Hypercoagulable state (8) Dehydration (9) Tremor DISCHARGE DIAGNOSIS:(1) Generalized weakness (2) Cirrhosis, alcoholic (3) Thrombocytopenia (4) Anxiety (5) Anemia (6) Hyperammonemia (7) Hypercoagulable state (8) Dehydration (9) Tremor (10) Metabolic encephalopathy HOSPITAL COURSE: Patient is a 46 year old white male who was admitted due to weakness and tremors. Patient has a history of alcoholic liver cirrhosis and is following up outpatient with [facility] in [place] regarding liver transplant. Patient is not yet on the transplant list. Patient states he has not drank alcohol in 6 years. Patient follows up with Berlin Banda (senior hr generalist) in [facility]. Patient reports weakness so significant he is unable to ambulate without assistance and tremors so significant he is unable to feed self due to food spilling off of fork. Patient is cared for by his mother. CT brain was negative for acute abnormality. Patient was treated with IV fluids for dehydration. Blood cultures were negative. Urine culture revealed bacteria however colony count was low and patient was not symptomatic for urinary symptoms; also WBC was not elevated and no fever noted therefore no treatment necessary for UTI. Labs revealed chronic changes but no acute findings. Patient's weakness improved to baseline as well as tremors. Patient was discharged home with mother. See D/C med rec for med changes. Patient to follow up outpatient as scheduled. DISCHARGE TIME SPENT > 35 MINS Disposition: 01 HOME, SELF-CARE Condition: Stable Health Concerns: Post Hospitalization: new medications and changes needed to prevent readmission or further decline. Pt educated and given instructions on all concerns. Care Plan Goals: Problem: Alteration in Mental Status Goal: Patient will stay oriented to their cognitive ability Instructions: Follow provided instructions. Follow up with primary physician as directed. Contact primary care physician or report to the closest Emergency Room if condition worsens. Plan of Treatment: Continue with present treatment and follow up plan. Pt is to keep follow up appointment as instructed and take medications as ordered. Assessment: No acute distress noted at time of discharge. Prescriptions: Continued clonazepam 0.5 mg Tablet 0.5 mg PO QHS doxycycline hyclate 100 mg Capsule 100 mg PO BID Qty: 20 RF: 0 famotidine 20 mg tablet 20 mg PO BID folic acid 1 mg tablet 1 mg PO DAILY furosemide 40 mg tablet 40 mg PO BID lactulose 10 gram/15 mL solution 30 ml PO TID Qty: 2700 RF: 3 metoprolol tartrate 25 mg tablet 12.5 mg PO BID omeprazole 20 mg capsule,delayed release(DR/EC) 20 mg PO BID oxycodone 5 mg tablet 5 mg PO BID potassium chloride 20 mEq tablet,ER particles/crystals 40 meq PO BID promethazine 25 mg tablet 25 mg PO Q6H PRNQty: 20 RF: 0 spironolactone 50 mg tablet 50 mg PO BID Xifaxan 550 mg tablet 550 mg PO BID Discontinued amitriptyline 10 mg tablet 10 mg PO QHS amitriptyline 10 mg tablet 10 mg PO DAILY doxepin 50 mg capsule 50 mg PO DAILY quetiapine [Seroquel] 100 mg Tablet 100 mg PO HS trazodone 100 mg tablet 100 mg PO HS PRN - Orders to Discharge Patient Discharge Orders: Discharge (Routine); Ordered 01/10/22 Ordered By: Ammy Mckenzie - Follow ups/Referrals Follow ups/Referrals: LINDSEY RODRIGEZ [Primary Care Provider] - 01/17/22 3:30 pm - Instructions Instructions: Hepatic Encephalopathy, Fatigue, Alcoholic Liver Disease, [id number], Antibiotic Medicine, Adult, [id number], Abdominal Pain, Adult, [id number], Urinary Tract Infection, Adult, Liver Failure, Weakness, [id number], Tremor Forms: Precautions for COVID19, [facility], Patient Portal, Social Distancing
== END 2022-01-10 14:35 | disposition home or self-care (01) ==
LOC: ER 20:33 → MED/SURG 20:33
PROVIDERS: ADMIT Internal Medicine; ATTEND Internal Medicine
DX: R94.31 Abnormal electrocardiogram [ECG] [EKG]; F41.8 Other specified anxiety disorders; F12.90 Cannabis use, unspecified, uncomplicated; B96.89 Other specified bacterial agents as the cause of diseases classified elsewhere; R25.1 Tremor, unspecified; G93.41 Metabolic encephalopathy; D69.6 Thrombocytopenia, unspecified; R53.1 Weakness; D50.8 Other iron deficiency anemias; K70.31 Alcoholic cirrhosis of liver with ascites; R26.89 Other abnormalities of gait and mobility; R79.1 Abnormal coagulation profile; Z20.822 Contact with and (suspected) exposure to COVID-19

== ENCOUNTER 2022-01-23 17:40 | Observation (INO) ==
--- NOTE | 2022-01-23 18:17 | DR.DIZZY ---
HPI Time seen Time Seen by Provider: 01/23/22 18:15 PCP Primary Care Physician: LINDSEY RODRIGEZ HPI Comment HPI Comment: PATIENT IS 46YR OLD MALE IN ER WITH LETHAGY AND DISORINTATION TIMES FEW HOURS. PATIENT HAVE LIVER DISEASE HISTORY OF HEPATIC ENCEPHALOPATHY AND ELEVATED AMMONIA LEVEL. HE HAS NOT BEING EATING AND IS NAUSEATED. CONSTANT ABDOMINAL PAIN. DENIES TRAUMA. Complaint Chief Complaint Doctor Comments: AMS. Chief Complaint:: 2HRS AGO HE STARTED ACTING DISORIENTED AND LETHARGIC,HOME QUIN NURSE CAME DID VITAL SIGNS INSTRUCTED MOTHER TO CALLED AMBULANCE,BUT [facility] COULD NOT BRING TO [facility] SO MOTHER BROUGHT. Self Treatment fo Chief Complaint: METROPOL 25MG NEW MEDICATION STARTED PER [facility] COVID-19 Coronavirus risk:travel/contact w/high risk person: No Has patient experienced Coronavirus symptoms: No Nurses Notes Reviewed Nurses Notes Review: Yes Source History Provided: Patient Mode of Arrival Mode of Arrival: Ambulatory Timing Onset of Chief Complaint: 01/23/22 Came on: Suddenly Duration Duration: Constant Duration: Hours Location of Weakness Weakness Location: Generalized Context Onset: At rest History of: None Stroke Symptoms: Acute confusion Severity Severity: Normal activity level Modifying factors Worsens: Nothing Associated signs and symptoms Associated Signs and Symptoms: Weak PMH PMH Past Medical History: Yes Past Medical History: Anxiety, GERD, Kidney Stones and Liver Disease Past Surgical History: Yes Surgical History: Lithotripsy Family History History of Family Medical Conditions: Yes Family Medical History: Diabetes Mellitus, [place], Coronary Artery Disease, Heart Failure and Hypertension Social History Type of Tobacco Use: None Does any household member use tobacco: No Alcohol Use: None Do you use any recreational Drugs:: No Lives With: Mom Lives Where: Home Travel Risk Coronavirus risk:travel/contact w/high risk person: No Has patient experienced Coronavirus symptoms: No Infectious screening In the last 2 months have you had wt loss of >10#?: NO Have you had fever, night sweats or hemotysis?: No Have you traveled outside the country in the last 6 months?: No Isolation: Standard ROS Review of Systems Constitutional: No Symptoms Reported, Weakness and Fatigue; negative Fever Eyes: No Symptoms Reported; negative Blurred Vision and Diplopia ENTM: No Symptoms Reported and See HPI; negative Nose Discharge and Nose Con gestion Respiratoy: See HPI and Short of Breath; negative Moist Cough and Wheezing Cardiovascular: No Symptoms Reported and See HPI; negative Chest Pain Gastrointestinal/Abdominal: See HPI, Abdominal Pain and Nausea; negative Diarrhea and Vomiting Genitourinary: No Symptoms Reported and See HPI; negative Dysuria Neurological: See HPI and Weakness; negative Headache and Dizziness Musculoskeletal: No Symptoms Reported and See HPI; negative Muscle Pain Integumentary: See HPI and Juandice; negative Rash Hematologic/Lymphatic: See HPI, Easy Bleeding and Easy Bruising Endocrine: No Symptoms Reported and See HPI; negative Increased Thirst and Increased Urine Psychiatric: No Symptoms Reported and See HPI All Other Systems: Reviewed and Negative PE Vital Signs Vitals: Temperature 98.8 F Pulse Rate 63 Respiratory Rate 20 Blood Pressure [Right Arm] 124/68 Blood Pressure 124/74 O2 Sat by Pulse Oximetry 79 General Limitations: Altered Mental Status General Appearance: Alert and In Distress Head Head Exam: Normal Inspection, Atraumatic and Normocephalic Eyes Eye exam: Scleral Icterus; negative Conjunctival Injection Pupils: Regular, Round: Bilateral and Reactive: Bilateral Sclera/Conjunctival: Normal Inspection: Bilateral ENT ENT Exam: Normal Exam, Normal Oropharynx, Normal External Ear Exam and TM's Normal Bilaterally Neck Neck Exam: Normal Inspection, Full ROM and Trachea Midline; negative Tenderness Chest Chest Inspection: Normal Inspection and Symmetric Chest Wall Rise; negative Tenderness Respiratory Respiratory Exam: Normal Lung Sounds Bilat; negative Accessory Muscle Use, Chest Wall Tenderness and Respiratory Distress Respiratory Exam: Bilateral: Rhonchi and Lower: Rhonchi Cardiovascular Cardiovascular Exam: Regular Rate, Normal Rhythm and Normal Heart Sounds; negative Systolic Murmur and Diastolic Murmur Abdominal Exam Abdominal Exam: Normal Bowel Sounds, Soft, Tenderness and Ascites Abdominal Tenderness: Diffuse and Moderate Rectal Rectal Exam: Deferred Extremeties Extremities Exam: Normal Inspection and Normal Capillary Refill Back Back Exam: Normal Inspection and Full ROM; negative (R) CVA Tenderness and (L) CVA Tenderness Neurologic Neurological Exam: Alert; negative Motor Sensory Deficit Patient Oriented To: Person and Place Speech: Other (SLOW SPEECH.) Cranial Nerve Exam: Gag reflex (XI): Normal Upper Motor Neuron Exam: Babinski Sign: Normal Psychiatric Psychiatric Exam: Normal Affect Skin Skin Exam: Dry and Other (JAUNDICE.) MDM Differential Diagnosis Differential Diagnosis: Anemia, CVA, Dehydration, Hypoglycemia, TIA and Other (ELEVATED AMMONIA, HEPATIC ENCEPHALOPATHY.) COURSE Treatment Treatment: SEE ORDERS DONE WHILE PATIENT IN ER. PATIENT IS GIVEN LACTULOSE 30CC PO, NS 1L IV BOLUS, THEN 75CC/HR, RIFAXIMIN 550MG PO GIVEN PATIENT WHILE IN ER. Consultation Consultation Comments: DISCUSSED PATIENT WITH DR. DARDEN. HE WILL ADMIT PATIENT. Education/Counseling Education/Counseling: Patient and Family Educated On: Diagnosis ROR Labs Reviewed Laboratory Results Reviewed?: Yes Result Diagrams: 01/28/22 04:40 01/28/22 04:40 Laboratory: WBC 5.1 X10^3/uL (3.6-10.0) 01/23/22 18:06 RBC 2.61 X10^6/uL (4.7-6.0) L 01/23/22 18:06 Hgb 9.8 g/dL (13.5-18.0) L 01/23/22 18:06 Hct 28.0 % (42.0-54.0) L 01/23/22 18:06 MCV 107.5 fL (80.0-100.0) H 01/23/22 18:06 MCH 37.6 pg (27.0-34.0) H 01/23/22 18:06 MCHC 35.0 g/dL (33.0-35.0) 01/23/22 18:06 RDW 16.6 % (11.6-16.5) H 01/23/22 18:06 Plt Count 56 X10^3/uL (150.0-450.0) L 01/23/22 18:06 Plt Count Comment Decreased (ADEQUATE) 01/23/22 18:06 MPV 8.3 fL (7.4-11.0) 01/23/22 18:06 Neut % (Auto) 64.3 % (42.0-75.0) 01/23/22 18:06 Lymph % (Auto) 19.8 % (21.0-51.0) L 01/23/22 18:06 [place] % (Auto) 12.2 % (0.0-13.0) 01/23/22 18:06 Eos % (Auto) 3.2 % (0.9-2.9) H 01/23/22 18:06 Baso % (Auto) 0.5 % (0.2-1.0) 01/23/22 18:06 Neut # (Auto) 3.3 x10^3/uL (2.2-4.8) 01/23/22 18:06 Lymph # (Auto) 1.0 X10^3/uL (1.3-2.9) L 01/23/22 18:06 [place] # (Auto) 0.6 x10^3/uL (0.3-0.8) 01/23/22 18:06 Eos # (Auto) 0.2 x10^3/uL (0.0-0.2) 01/23/22 18:06 Baso # (Auto) 0.0 X10^3/uL (0.0-0.1) 01/23/22 18:06 Absolute Nucleated RBC 0.0 /100WBC 01/23/22 18:06 Plt Morphology Comment Normal (NORMAL) 01/23/22 18:06 RBC Morphology Abnormal (NORMAL) 01/23/22 18:06 Macrocytosis 1+ A 01/23/22 18:06 Tear Drop Cells Slight 01/23/22 18:06 PT 25.9 SECONDS (11.8-14.3) 01/23/22 18:06 INR Target Range - 01/23/22 18:06 INR 2.51 (0.8-1.3) H 01/23/22 18:06 APTT 47.8 SECONDS (22.9-36.5) H 01/23/22 18:06 PTT Comment - 01/23/22 18:06 Sodium 140 mmol/L (136-145) 01/23/22 18:06 Corrected Sodium 140 mmol/L (136-145) 01/23/22 18:06 Potassium 4.9 mmol/L (3.5-5.1) 01/23/22 18:06 Chloride 110 mmol/L (98-107) H 01/23/22 18:06 Carbon Dioxide 23.4 mmol/L (21-32) 01/23/22 18:06 BUN 15 mg/dL (7-18) 01/23/22 18:06 Creatinine 0.94 mg/dL (0.70-1.30) 01/23/22 18:06 Est GFR (MDRD) Af Amer > 60 (>60) 01/23/22 18:06 Est GFR (MDRD) Non-Af > 60 (>60) 01/23/22 18:06 Glucose 116 mg/dL (65-99) H 01/23/22 18:06 POC Glucose (mg/dL) 114 mg/dL (65-99) H 01/23/22 18:05 Lactic Acid 1.0 mmol/L (0.4-2.0) 01/23/22 18:06 Calcium 7.5 mg/dL (8.5-10.1) L 01/23/22 18:06 Corrected Calcium 8.9 mg/dL (8.5-10.1) 01/23/22 18:06 Total Bilirubin 9.90 mg/dL (0.2-1.0) H 01/23/22 18:06 AST 41 Units/L (15-37) H 01/23/22 18:06 ALT 25 Units/L (12-78) 01/23/22 18:06 Alkaline Phosphatase 121 Units/L (46-116) H 01/23/22 18:06 Ammonia 168 umol/L (11-32) H 01/23/22 18:06 Creatine Kinase 36 Units/L (39-308) L 01/23/22 18:06 CK-MB (CK-2) < 1.0 ng/mL (0-4.0) 01/23/22 18:06 CK/CKMB % Calc 2.8 % (<4) 01/23/22 18:06 Troponin I High Sens 13.7 ng/L (4.0-60.0) 01/23/22 18:06 Total Protein 5.8 g/dL (6.4-8.2) L 01/23/22 18:06 Albumin 2.2 g/dL (3.4-5.0) L 01/23/22 18:06 Globulin 3.6 g/dL (2.5-4.5) 01/23/22 18:06 Albumin/Globulin Ratio 0.6 Ratio (1.1-2.1) L 01/23/22 18:06 Amylase 23 Units/L (25-115) L 01/23/22 18:06 Lipase 100 Units/L (73-393) 01/23/22 18:06 SARS-CoV-2 (PCR) Negative (NEGATIVE) 01/23/22 21:12 Influenza Type A (PCR) Negative (NEGATIVE) 01/23/22 21:12 Influenza Type B (PCR) Negative (NEGATIVE) 01/23/22 21:12 RSV (PCR) Negative (NEGATIVE) 01/23/22 21:12 XRAY XRAY Interpreted by: Radiologist (REPORT NOTED.) and Self EKG Rate: 51 [place]: Normal Rhythm: NSR Block: None Hypertrophy: None ST: Ischemia Opioid Opioid Risk Tool Age (Moises box if 16-45): No History of Preadolescent Sexual Abuse: No Total: 0 Total Score Risk Category: Low Risk Copyright: Fernando VASQUEZ predicting aberrant behaviors Diagnosis Discharge Problem: Hyperammonemia AMS (altered mental status) Qualifiers: Altered mental status type: transient alteration of awareness Qualified Code(s): R40.4 - Transient alteration of awareness Liver cirrhosis Qualifiers: Hepatic cirrhosis type: alcoholic cirrhosis Ascites presence: unspecified Qualified Code(s): K70.30 - Alcoholic cirrhosis of liver without ascites Instructions Forms: Excuse From Work or School Precautions for COVID19 [facility] Social Distancing
[2022-01-23] MEDS ORDERED: NS 1,000 ML IV 1,000 ML ONE (18:19)
[2022-01-23] MEDS: NS 1,000 ML IV 1,000 ML IV SCH (18:25)
[2022-01-23 18:30] LABS: BASOPHILS % (AUTO) 0.5 % (0.2-1.0); EOSINOPHILS # (AUTO) 0.2 x10^3/uL (0.0-0.2); EOSINOPHILS % (AUTO) 3.2 % (0.9-2.9); HEMOGLOBIN 9.8 g/dL (13.5-18.0); LYMPHOCYTES % (AUTO) 19.8 % (21.0-51.0); MEAN CORPUSCULAR HEMOGLOBIN 37.6 pg (27.0-34.0); MEAN CORPUSCULAR VOLUME 107.5 fL (80.0-100.0); MEAN PLATELET VOLUME 8.3 fL (7.4-11.0); MONOCYTES # (AUTO) 0.6 x10^3/uL (0.3-0.8); MONOCYTES % (AUTO) 12.2 % (0.0-13.0); NEUTROPHILS # (AUTO) 3.3 x10^3/uL (2.2-4.8); NEUTROPHILS % (AUTO) 64.3 % (42.0-75.0); RED BLOOD COUNT 2.61 X10^6/uL (4.7-6.0); RED CELL DISTRIBUTION WIDTH 16.6 % (11.6-16.5); WHITE BLOOD COUNT 5.1 X10^3/uL (3.6-10.0)
[2022-01-23 18:43] LABS: PLATELET MORPHOLOGY COMMENT NORMAL (NORMAL)
[2022-01-23 18:44] LABS: TEAR DROP CELLS SLIGHT
[2022-01-23 18:45] LABS: AMMONIA 168 umol/L (11-32)
[2022-01-23 19:01] LABS: ALANINE AMINOTRANSFERASE 25 Units/L (12-78); ALBUMIN 2.2 g/dL (3.4-5.0); ALKALINE PHOSPHATASE 121 Units/L (46-116); AMYLASE 23 Units/L (25-115); ASPARTATE AMINO TRANSFERASE 41 Units/L (15-37); BLOOD UREA NITROGEN 15 mg/dL (7-18); CALCIUM 7.5 mg/dL (8.5-10.1); CARBON DIOXIDE 23.4 mmol/L (21-32); CHLORIDE 110 mmol/L (98-107); COR CA(FOR HYPOALB) 8.9 mg/dL (8.5-10.1); COR NA(FOR HYPERGLY) 140 mmol/L (136-145); CREATININE 0.94 mg/dL (0.70-1.30); LIPASE 100 Units/L (73-393); SODIUM 140 mmol/L (136-145); TOTAL PROTEIN 5.8 g/dL (6.4-8.2); eGFR NON BLACK RACES > 60 (>60)
[2022-01-23 19:38] LABS: CKMB % 2.8 % (<4); CREATINE KINASE 36 Units/L (39-308); CREATINE KINASE MB < 1.0 ng/mL (0-4.0)
[2022-01-23] MEDS ORDERED: ZOFRAN INJ 4 MG VIAL IVP PRN (22:06)
[2022-01-23] MEDS ORDERED: PEPCID 20 MG IV PREMIX* 20 MG/50 ML BAG IV PRN (22:06)
[2022-01-23 22:38] LABS: BILIRUBIN,URINE NEGATIVE (NEGATIVE); BLOOD/HEMOGLOBIN,URINE 1+ (NEGATIVE); GLUCOSE, URINE NEGATIVE (NEGATIVE); KETONES,URINE NEGATIVE (NEGATIVE); LEUKOCYTE ESTERASE ,URINE NEGATIVE (NEGATIVE); NITRITES,URINE NEGATIVE (NEGATIVE); PROTEIN,URINE NEGATIVE (NEGATIVE); UROBILINOGEN,URINE 2+ (NORMAL)
[2022-01-23 22:46] LABS: APPEARANCE,URINE CLEAR (CLEAR); BACTERIA,URINE TRACE /HPF (NEGATIVE); COLOR,URINE YELLOW (YELLOW); SQUAMOUS EPITHELIAL CELL,UR RARE /HPF (NEGATIVE)
[2022-01-24 01:13] VITALS: BMI 26.2
[2022-01-24] MEDS ORDERED: CHRONULAC ONE (01:35)
[2022-01-24] MEDS ORDERED: XIFAXAN PO ONE ×2 (01:38→01:49)
[2022-01-24] MEDS ORDERED: CHRONULAC PO ONE (01:49)
[2022-01-24] MEDS ORDERED: KLONOPIN TAB 0.5 MG PO ONE (01:51)
[2022-01-24] MEDS ORDERED: KLONOPIN TAB 0.5 MG ONE (01:59)
[2022-01-24 05:40] LABS: BASOPHILS % (AUTO) 0.3 % (0.2-1.0); EOSINOPHILS # (AUTO) 0.1 x10^3/uL (0.0-0.2); MONOCYTES # (AUTO) 0.5 x10^3/uL (0.3-0.8)
[2022-01-24 06:05] LABS: ALANINE AMINOTRANSFERASE 24 Units/L (12-78); ALBUMIN 2.1 g/dL (3.4-5.0); ALKALINE PHOSPHATASE 105 Units/L (46-116); AMYLASE 23 Units/L (25-115); ASPARTATE AMINO TRANSFERASE 42 Units/L (15-37); BLOOD UREA NITROGEN 14 mg/dL (7-18); CALCIUM 7.7 mg/dL (8.5-10.1); CARBON DIOXIDE 21.6 mmol/L (21-32); CHLORIDE 110 mmol/L (98-107); COR CA(FOR HYPOALB) 9.2 mg/dL (8.5-10.1); CREATININE 0.73 mg/dL (0.70-1.30); LIPASE 99 Units/L (73-393); SODIUM 141 mmol/L (136-145); TOTAL PROTEIN 5.4 g/dL (6.4-8.2); eGFR NON BLACK RACES > 60 (>60)
[2022-01-24 06:27] LABS: EOSINOPHILS % (AUTO) 3.4 % (0.9-2.9); HEMATOCRIT 25.7 % (42.0-54.0); HEMOGLOBIN 8.9 g/dL (13.5-18.0); LYMPHOCYTES % (AUTO) 26.2 % (21.0-51.0); MEAN CORPUSCULAR HEMOGLOBIN 37.3 pg (27.0-34.0); MEAN CORPUSCULAR HGB CONC 34.8 g/dL (33.0-35.0); MEAN PLATELET VOLUME 7.6 fL (7.4-11.0); MONOCYTES % (AUTO) 12.6 % (0.0-13.0); NEUTROPHILS # (AUTO) 2.2 x10^3/uL (2.2-4.8); NEUTROPHILS % (AUTO) 57.5 % (42.0-75.0); RED CELL DISTRIBUTION WIDTH 16.2 % (11.6-16.5); WHITE BLOOD COUNT 4.7 X10^3/uL (3.6-10.0)
[2022-01-24 06:29] LABS: PLATELET MORPHOLOGY COMMENT NORMAL (NORMAL); SCHISTOCYTES PRESENT
[2022-01-24] MEDS ORDERED: PEPCID 20 MG VIAL 20 MG in NS 50 ML IV 50 ML IV PRN (07:13)
[2022-01-24] MEDS ORDERED: NS 1,000 ML IV 1,000 ML ONE (08:34)
[2022-01-24] MEDS: NS 1,000 ML IV 1,000 ML IV SCH ×2 (08:38→20:02)
[2022-01-24] MEDS ORDERED: ROXICODONE TAB 5 MG PO ONE (17:15)
[2022-01-24] MEDS ORDERED: PHENERGAN TAB 25 MG PO PRN (17:59)
[2022-01-24] MEDS ORDERED: ROXICODONE TAB 5 MG PO SCH (18:00)
[2022-01-24] MEDS ORDERED: NS 1,000 ML IV 1,000 ML IV SCH ×2 (18:00→19:00)
[2022-01-24] MEDS ORDERED: FOLIC ACID TAB 1 MG PO SCH (19:00)
[2022-01-24] MEDS ORDERED: LASIX PO SCH (19:00)
[2022-01-24] MEDS ORDERED: ELAVIL PO SCH (21:00)
[2022-01-24] MEDS: XIFAXAN PO SCH (21:00)
[2022-01-24] MEDS ORDERED: PEPCID TAB 20 MG PO SCH (21:00)
[2022-01-24] MEDS ORDERED: ALDACTONE TAB 25 MG PO SCH (21:00)
[2022-01-24] MEDS: CHRONULAC PO SCH (21:00)
[2022-01-24] MEDS ORDERED: K-DUR TAB 20 MEQ PO SCH (21:00)
[2022-01-24] MEDS ORDERED: PriLOSEC PO SCH (21:00)
[2022-01-24] MEDS ORDERED: LOPRESSOR TAB 25 MG PO SCH (21:00)
[2022-01-24] MEDS ORDERED: KLONOPIN TAB 0.5 MG PO SCH (21:00)
[2022-01-25 05:57] LABS: AMMONIA 35 umol/L (11-32)
[2022-01-25 06:24] LABS: BASOPHILS % (AUTO) 0.2 % (0.2-1.0); EOSINOPHILS # (AUTO) 0.1 x10^3/uL (0.0-0.2); EOSINOPHILS % (AUTO) 1.8 % (0.9-2.9); HEMATOCRIT 22.2 % (42.0-54.0); HEMOGLOBIN 7.9 g/dL (13.5-18.0); LYMPHOCYTES # (AUTO) 0.8 X10^3/uL (1.3-2.9); LYMPHOCYTES % (AUTO) 16.7 % (21.0-51.0); MEAN CORPUSCULAR HEMOGLOBIN 37.8 pg (27.0-34.0); MEAN CORPUSCULAR HGB CONC 35.5 g/dL (33.0-35.0); MEAN CORPUSCULAR VOLUME 106.6 fL (80.0-100.0); MEAN PLATELET VOLUME 7.7 fL (7.4-11.0); MONOCYTES # (AUTO) 0.6 x10^3/uL (0.3-0.8); MONOCYTES % (AUTO) 11.8 % (0.0-13.0); NEUTROPHILS # (AUTO) 3.3 x10^3/uL (2.2-4.8); NEUTROPHILS % (AUTO) 69.5 % (42.0-75.0); RED BLOOD COUNT 2.08 X10^6/uL (4.7-6.0); RED CELL DISTRIBUTION WIDTH 15.7 % (11.6-16.5); WHITE BLOOD COUNT 4.8 X10^3/uL (3.6-10.0)
[2022-01-25 06:29] LABS: ALANINE AMINOTRANSFERASE 25 Units/L (12-78); ALKALINE PHOSPHATASE 100 Units/L (46-116); ASPARTATE AMINO TRANSFERASE 47 Units/L (15-37); BLOOD UREA NITROGEN 14 mg/dL (7-18); CALCIUM 7.6 mg/dL (8.5-10.1); CARBON DIOXIDE 21.6 mmol/L (21-32); CHLORIDE 112 mmol/L (98-107); COR CA(FOR HYPOALB) 9.2 mg/dL (8.5-10.1); CREATININE 0.75 mg/dL (0.70-1.30); SODIUM 142 mmol/L (136-145); TOTAL PROTEIN 5.1 g/dL (6.4-8.2); eGFR NON BLACK RACES > 60 (>60)
[2022-01-25 07:03] LABS: PLATELET MORPHOLOGY COMMENT NORMAL (NORMAL)
[2022-01-25] MEDS: CHRONULAC PO SCH ×2 (08:57→20:30)
[2022-01-25] MEDS: XIFAXAN PO SCH ×2 (08:58→20:30)
[2022-01-25] MEDS: NS 1,000 ML IV 1,000 ML IV SCH ×3 (09:11→23:59)
--- NOTE | 2022-01-25 11:52 | DR.H&P ---
H&P - History & Physical for Day of: H&P Date: 01/23/22 - Chief Complaint Chief Complaint: AMS - History of Present Illness History of Present Illness: Patient is a 46 year old white male who is being admitted due to AMS. Patient has an extensive liver failure history. Patient currently following up with [facility] regarding getting on transplant list. Patient's mother/caregiver at [facility]. Jorge reports patient became confused over the past 24 hours. States prior to that he was in his normal state of health. Mother reports patient has been taking home meds as ordered. PMH liver cirrohsis, chronic pain, LEONIDAS, CHF. - Past Medical History Past Medical History: Liver Disease, Anxiety, GERD, Kidney Stones Additional Medical History: Mitral Valve Prolapse, HYPERTROPHIC CARDIOMYOPATHY. DIASTOLIC DYSFUNCTION - Past Surgical History Surgical History: Lithotripsy Additional Surgical History: Abdominal Paracentesis, Liver Biopsy - Family History Family Medical History: Diabetes Mellitus, Coronary Artery Disease - Social History Does patient currently use any type of tobacco product: Yes Have you used tobacco products in the last 12 months: Yes Type of Tobacco Use: Cigarettes Does any household member use tobacco: No Alcohol Use: None Drug Use: None - Medications Home Medications: No Known Drug Allergies Allergy (Verified 07/28/20 12:45) CONTINUE taking the following medications amitriptyline 10 mg PO QHS 01/23/22 [History] clonazepam 0.5 mg PO QHS 01/23/22 [History] metoprolol tartrate 12.5 mg PO BID 01/23/22 [History] omeprazole 20 mg PO BID 01/23/22 [History] - Review of Systems Constitutional: See HPI Eyes: See HPI ENT: See HPI Respiratory: See HPI Cardiovascular: See HPI Gastrointestinal: See HPI Genitourinary: See HPI Musculoskeletal: See HPI Skin: See HPI Neurological: See HPI - Physical Exam Vital Signs: Temperature 98.7 F Pulse Rate [Left Brachial] 70 Pulse Rate 91 Respiratory Rate 26 Blood Pressure [Right Arm] 95/61 Blood Pressure 131/58 O2 Sat by Pulse Oximetry 100 Oriented: Not Oriented Eyes: Other (Jaundice) Ear: Normal Nose: Normal Throat: Normal Respiratory: Clear Throughout Cardiovascular: Normal, Murmur : Normal Auscultation: Bowel Sounds: Normal Palpation: Normal, Other (Mild ascities noted) Tenderness: Normal Skin: Other (Jaundice) Musculoskeletal: Back:Lumbar, Tender Mood Description: Flat Affect: Flat Speech Pattern: Clear, Inappropriate - Assessment/Plan (1) AMS (altered mental status) Status: Acute Plan: Monitor ammonia levels. Admit. Gentle hydration. Repeat labs in am. NEuro checks (2) Encephalopathy, hepatic Status: Acute (3) Cirrhosis, alcoholic Qualifiers: Ascites presence: with ascites Qualified Code(s): K70.31 - Alcoholic cirrhosis of liver with ascites Status: Chronic (4) Generalized weakness Status: Acute (5) Thrombocytopenia Status: Chronic (6) Elevated partial thromboplastin time (PTT) Status: Chronic (7) Chronic pain Qualifiers: Chronic pain type: chronic pain syndrome Qualified Code(s): G89.4 - Chronic pain syndrome Status: Chronic - Allergies Allergies/Adverse Reactions: Allergies Allergy/AdvReac Type Severity Reaction Status Date / Time No Known Drug Allergies Allergy Verified 07/28/20 12:45
--- NOTE | 2022-01-25 11:56 | PCM.PROG ---
Progress Note - Progress Note for Day of Date of Exam: 01/24/22 - Subjective Subjective: Patient is a 46 year old chronically ill appearing male who was admitted as per HPI. No major changes from previous. Patient is awake and alert but confused. Patient can answer yes or no questions and say simple words but he is not oriented. Mother at bedside. Ammonia level improving. - Past Medical Family Social History Past Med/Fam/Surg Hx: No changes since H&P Allergies: Allergies No Known Drug Allergies Allergy (Verified 07/28/20 12:45) - Review of Systems ROS: No change since H&P - Vital Signs and I&O's Vital Signs: Temperature 98.7 F Pulse Rate [Left Brachial] 70 Pulse Rate 91 Respiratory Rate 26 Blood Pressure [Right Arm] 95/61 Blood Pressure 131/58 O2 Sat by Pulse Oximetry 100 Intake and Output: Intake & Output 01/22/22 01/23/22 01/24/22 01/25/22 23:59 23:59 23:59 23:59 Intake Total 2695 / 2695 425 / 425 Output Total 3700 / 3700 600 / 600 Balance -1005 / -1005 -175 / -175 - Physical Exam Oriented: Not Oriented Eyes: Other (Jaundice) Ear: Normal Nose: Normal Throat: Normal Respiratory: Normal Cardiovascular: Normal, Murmur : Normal Auscultation: Bowel Sounds: Normal Palpation: Normal Tenderness: Normal Skin: Other (Jaundice) Musculoskeletal: Back:Lumbar, Tender Mood Description: Flat Affect: Flat Speech Pattern: Clear, Inappropriate - Laboratory and Diagnostics Result Diagrams: 01/25/22 04:29 01/25/22 04:29 Labs: 01/24/22 18:24 Urine,Catheterized Urine Culture - Preliminary Laboratory WBC 4.8 X10^3/uL (3.6-10.0) 01/25/22 04:29 RBC 2.08 X10^6/uL (4.7-6.0) L 01/25/22 04:29 Hgb 7.9 g/dL (13.5-18.0) L 01/25/22 04:29 Hct 22.2 % (42.0-54.0) L 01/25/22 04:29 MCV 106.6 fL (80.0-100.0) H 01/25/22 04:29 MCH 37.8 pg (27.0-34.0) H 01/25/22 04: MCHC 35.5 g/dL (33.0-35.0) H 01/25/22 04: RDW 15.7 % (11.6-16.5) 01/25/22 04: Plt Count 38 X10^3/uL (150.0-450.0) L 01/25/22 04: Plt Count Comment Decreased (ADEQUATE) 01/25/22 04: MPV 7.7 fL (7.4-11.0) 01/25/22 04: Neut % (Auto) 69.5 % (42.0-75.0) 01/25/22 04: Lymph % (Auto) 16.7 % (21.0-51.0) L 01/25/22 04: [place] % (Auto) 11.8 % (0.0-13.0) 01/25/22 04: Eos % (Auto) 1.8 % (0.9-2.9) 01/25/22 04: Baso % (Auto) 0.2 % (0.2-1.0) 01/25/22 04: Neut # (Auto) 3.3 x10^3/uL (2.2-4.8) 01/25/22 04: Lymph # (Auto) 0.8 X10^3/uL (1.3-2.9) L 01/25/22 04:29 [place] # (Auto) 0.6 x10^3/uL (0.3-0.8) 01/25/22 04: Eos # (Auto) 0.1 x10^3/uL (0.0-0.2) 01/25/22 04: Baso # (Auto) 0.0 X10^3/uL (0.0-0.1) 01/25/22 04: Absolute Nucleated RBC 0.1 /100WBC 01/25/22 04:29 Plt Morphology Comment Normal (NORMAL) 01/25/22 04: RBC Morphology Abnormal (NORMAL) 01/25/22 04:29 Macrocytosis 1+ A 01/25/22 04: Tear Drop Cells Slight 01/23/22 18:06 Acanthocytes (Spur) Slight 01/25/22 04:29 Schistocytes Present 01/24/22 04:00 PT 25.9 SECONDS (11.8-14.3) 01/23/22 18:06 INR Target Range - 01/23/22 18:06 INR 2.51 (0.8-1.3) H 01/23/22 18:06 APTT 47.8 SECONDS (22.9-36.5) H 01/23/22 18:06 PTT Comment - 01/23/22 18:06 Sodium 142 mmol/L (136-145) 01/25/22 04:29 Corrected Sodium TNP 01/25/22 04:29 Potassium 3.9 mmol/L (3.5-5.1) 01/25/22 04:29 Chloride 112 mmol/L (98-107) H 01/25/22 04:29 Carbon Dioxide 21.6 mmol/L (21-32) 01/25/22 04:29 BUN 14 mg/dL (7-18) 01/25/22 04:29 Creatinine 0.75 mg/dL (0.70-1.30) 01/25/22 04:29 Est GFR (MDRD) Af Amer > 60 (>60) 01/25/22 04:29 Est GFR (MDRD) Non-Af > 60 (>60) 01/25/22 04:29 Glucose 101 mg/dL (65-99) H 01/25/22 04:29 POC Glucose (mg/dL) 114 mg/dL (65-99) H 01/23/22 18:05 Lactic Acid 1.0 mmol/L (0.4-2.0) 01/23/22 18:06 Calcium 7.6 mg/dL (8.5-10.1) L 01/25/22 04:29 Corrected Calcium 9.2 mg/dL (8.5-10.1) 01/25/22 04:29 Total Bilirubin 11.50 mg/dL (0.2-1.0) H 01/25/22 04:29 AST 47 Units/L (15-37) H 01/25/22 04:29 ALT 25 Units/L (12-78) 01/25/22 04:29 Alkaline Phosphatase 100 Units/L (46-116) 01/25/22 04:29 Ammonia 35 umol/L (11-32) H 01/25/22 04:29 Creatine Kinase 36 Units/L (39-308) L 01/23/22 18:06 CK-MB (CK-2) < 1.0 ng/mL (0-4.0) 01/23/22 18:06 CK/CKMB % Calc 2.8 % (<4) 01/23/22 18:06 Troponin I High Sens 13.7 ng/L (4.0-60.0) 01/23/22 18:06 Total Protein 5.1 g/dL (6.4-8.2) L 01/25/22 04:29 Albumin 2.0 g/dL (3.4-5.0) L 01/25/22 04:29 Globulin 3.1 g/dL (2.5-4.5) 01/25/22 04:29 Albumin/Globulin Ratio 0.6 Ratio (1.1-2.1) L 01/25/22 04:29 Amylase 23 Units/L (25-115) L 01/24/22 04:00 Lipase 99 Units/L (73-393) 01/24/22 04:00 Specimen Type Catherized urine 01/23/22 22:14 Urine Color Yellow (YELLOW) 01/23/22 22:14 Urine Appearance Clear (CLEAR) 01/23/22 22:14 Urine pH 7.0 (5.0 - 8.0) 01/23/22 22:14 Ur Specific [place] 1.010 (1.000-1.030) 01/23/22 22:14 Urine Protein Negative (NEGATIVE) 01/23/22 22:14 Urine Glucose (UA) Negative (NEGATIVE) 01/23/22 22:14 Urine Ketones Negative (NEGATIVE) 01/23/22 22:14 Urine Occult Blood 1+ (NEGATIVE) 01/23/22 22:14 Urine Nitrite Negative (NEGATIVE) 01/23/22 22:14 Urine Bilirubin Negative (NEGATIVE) 01/23/22 22:14 Urine Urobilinogen 2+ (NORMAL) 01/23/22 22:14 Ur Leukocyte Esterase Negative (NEGATIVE) 01/23/22 22:14 Urine RBC 5-10 /HPF (0-3) A 01/23/22 22:14 Urine WBC 0-2 /HPF (0-5) 01/23/22 22:14 Ur Squamous Epith Cells Rare /HPF (NEGATIVE) 01/23/22 22:14 Urine Bacteria Trace /HPF (NEGATIVE) 01/23/22 22:14 Ur Culture Indicated? No/not indicated 01/23/22 22:14 SARS-CoV-2 (PCR) Negative (NEGATIVE) 01/23/22 21:12 Influenza Type A (PCR) Negative (NEGATIVE) 01/23/22 21:12 Influenza Type B (PCR) Negative (NEGATIVE) 01/23/22 21:12 RSV (PCR) Negative (NEGATIVE) 01/23/22 21:12 - Plan (1) Hyperammonemia Status: Acute (2) AMS (altered mental status) Status: Acute Plan: Monitor ammonia levels. Admit. Gentle hydration. Repeat labs in am. NEuro checks (3) Encephalopathy, hepatic Status: Acute (4) Cirrhosis, alcoholic Status: Chronic Qualifiers: Ascites presence: with ascites Qualified Code(s): K70.31 - Alcoholic cirrhosis of liver with ascites (5) Generalized weakness Status: Acute (6) Thrombocytopenia Status: Chronic (7) Elevated partial thromboplastin time (PTT) Status: Chronic (8) Chronic pain Status: Chronic Qualifiers: Chronic pain type: chronic pain syndrome Qualified Code(s): G89.4 - Chronic pain syndrome
--- NOTE | 2022-01-25 12:49 | PCM.PROG ---
Progress Note - Subjective Subjective: Patient is a 46 year old chronically ill appearing male who was admitted as per HPI. No major changes from previous. Patient is awake and alert and more oriented than previous however not yet back to baseline. Patient recognizes his mother today. Mother at bedside. Ammonia level improving. - Past Medical Family Social History Past Med/Fam/Surg Hx: No changes since H&P Allergies: Allergies No Known Drug Allergies Allergy (Verified 07/28/20 12:45) - Review of Systems ROS: No change since H&P - Vital Signs and I&O's Vital Signs: Temperature 98.6 F Pulse Rate [Left Brachial] 70 Pulse Rate 94 Respiratory Rate 20 Blood Pressure [Right Arm] 95/61 Blood Pressure 101/54 O2 Sat by Pulse Oximetry 100 Intake and Output: Intake & Output 01/22/22 01/23/22 01/24/22 01/25/22 23:59 23:59 23:59 23:59 Intake Total 2695 / 2695 425 / 425 Output Total 3700 / 3700 600 / 600 Balance -1005 / -1005 -175 / -175 - Physical Exam Oriented: Person Eyes: Other (Jaundice) Ear: Normal Nose: Normal Throat: Normal Respiratory: Normal Cardiovascular: Normal, Murmur : Normal Auscultation: Bowel Sounds: Normal Palpation: Normal, Other (Mild ascities ) Tenderness: Normal Skin: Other (Jaundice) Musculoskeletal: Back:Lumbar, Tender Mood Description: Flat Affect: Flat Speech Pattern: Clear - Laboratory and Diagnostics Result Diagrams: 01/25/22 04:29 01/25/22 04:29 Labs: 01/24/22 18:24 Urine,Catheterized Urine Culture - Preliminary Laboratory WBC 4.8 X10^3/uL (3.6-10.0) 01/25/22 04:29 RBC 2.08 X10^6/uL (4.7-6.0) L 01/25/22 04:29 Hgb 7.9 g/dL (13.5-18.0) L 01/25/22 04:29 Hct 22.2 % (42.0-54.0) L 01/25/22 04:29 MCV 106.6 fL (80.0-100.0) H 01/25/22 04:29 MCH 37.8 pg (27.0-34.0) H 01/25/22 04:29 MCHC 35.5 g/dL (33.0-35.0) H 01/25/22 04: RDW 15.7 % (11.6-16.5) 01/25/22 04: Plt Count 38 X10^3/uL (150.0-450.0) L 01/25/22 04: Plt Count Comment Decreased (ADEQUATE) 01/25/22 04: MPV 7.7 fL (7.4-11.0) 01/25/22 04: Neut % (Auto) 69.5 % (42.0-75.0) 01/25/22 04: Lymph % (Auto) 16.7 % (21.0-51.0) L 01/25/22 04: [place] % (Auto) 11.8 % (0.0-13.0) 01/25/22 04: Eos % (Auto) 1.8 % (0.9-2.9) 01/25/22 04: Baso % (Auto) 0.2 % (0.2-1.0) 01/25/22 04: Neut # (Auto) 3.3 x10^3/uL (2.2-4.8) 01/25/22 04: Lymph # (Auto) 0.8 X10^3/uL (1.3-2.9) L 01/25/22 04:29 [place] # (Auto) 0.6 x10^3/uL (0.3-0.8) 01/25/22 04: Eos # (Auto) 0.1 x10^3/uL (0.0-0.2) 01/25/22 04:29 Baso # (Auto) 0.0 X10^3/uL (0.0-0.1) 01/25/22 04: Absolute Nucleated RBC 0.1 /100WBC 01/25/22 04:29 Plt Morphology Comment Normal (NORMAL) 01/25/22 04: RBC Morphology Abnormal (NORMAL) 01/25/22 04:29 Macrocytosis 1+ A 01/25/22 04:29 Tear Drop Cells Slight 01/23/22 18:06 Acanthocytes (Spur) Slight 01/25/22 04:29 Schistocytes Present 01/24/22 04:00 PT 25.9 SECONDS (11.8-14.3) 01/23/22 18:06 INR Target Range - 01/23/22 18:06 INR 2.51 (0.8-1.3) H 01/23/22 18:06 APTT 47.8 SECONDS (22.9-36.5) H 01/23/22 18:06 PTT Comment - 01/23/22 18:06 Sodium 142 mmol/L (136-145) 01/25/22 04:29 Corrected Sodium TNP 01/25/22 04:29 Potassium 3.9 mmol/L (3.5-5.1) 01/25/22 04:29 Chloride 112 mmol/L (98-107) H 01/25/22 04:29 Carbon Dioxide 21.6 mmol/L (21-32) 01/25/22 04:29 BUN 14 mg/dL (7-18) 01/25/22 04:29 Creatinine 0.75 mg/dL (0.70-1.30) 01/25/22 04:29 Est GFR (MDRD) Af Amer > 60 (>60) 01/25/22 04:29 Est GFR (MDRD) Non-Af > 60 (>60) 01/25/22 04:29 Glucose 101 mg/dL (65-99) H 01/25/22 04:29 POC Glucose (mg/dL) 114 mg/dL (65-99) H 01/23/22 18:05 Lactic Acid 1.0 mmol/L (0.4-2.0) 01/23/22 18:06 Calcium 7.6 mg/dL (8.5-10.1) L 01/25/22 04:29 Corrected Calcium 9.2 mg/dL (8.5-10.1) 01/25/22 04:29 Total Bilirubin 11.50 mg/dL (0.2-1.0) H 01/25/22 04:29 AST 47 Units/L (15-37) H 01/25/22 04:29 ALT 25 Units/L (12-78) 01/25/22 04:29 Alkaline Phosphatase 100 Units/L (46-116) 01/25/22 04:29 Ammonia 35 umol/L (11-32) H 01/25/22 04:29 Creatine Kinase 36 Units/L (39-308) L 01/23/22 18:06 CK-MB (CK-2) < 1.0 ng/mL (0-4.0) 01/23/22 18:06 CK/CKMB % Calc 2.8 % (<4) 01/23/22 18:06 Troponin I High Sens 13.7 ng/L (4.0-60.0) 01/23/22 18:06 Total Protein 5.1 g/dL (6.4-8.2) L 01/25/22 04:29 Albumin 2.0 g/dL (3.4-5.0) L 01/25/22 04:29 Globulin 3.1 g/dL (2.5-4.5) 01/25/22 04:29 Albumin/Globulin Ratio 0.6 Ratio (1.1-2.1) L 01/25/22 04:29 Amylase 23 Units/L (25-115) L 01/24/22 04:00 Lipase 99 Units/L (73-393) 01/24/22 04:00 Specimen Type Catherized urine 01/23/22 22:14 Urine Color Yellow (YELLOW) 01/23/22 22:14 Urine Appearance Clear (CLEAR) 01/23/22 22:14 Urine pH 7.0 (5.0 - 8.0) 01/23/22 22:14 Ur Specific [place] 1.010 (1.000-1.030) 01/23/22 22:14 Urine Protein Negative (NEGATIVE) 01/23/22 22:14 Urine Glucose (UA) Negative (NEGATIVE) 01/23/22 22:14 Urine Ketones Negative (NEGATIVE) 01/23/22 22:14 Urine Occult Blood 1+ (NEGATIVE) 01/23/22 22:14 Urine Nitrite Negative (NEGATIVE) 01/23/22 22:14 Urine Bilirubin Negative (NEGATIVE) 01/23/22 22:14 Urine Urobilinogen 2+ (NORMAL) 01/23/22 22:14 Ur Leukocyte Esterase Negative (NEGATIVE) 01/23/22 22:14 Urine RBC 5-10 /HPF (0-3) A 01/23/22 22:14 Urine WBC 0-2 /HPF (0-5) 01/23/22 22:14 Ur Squamous Epith Cells Rare /HPF (NEGATIVE) 01/23/22 22:14 Urine Bacteria Trace /HPF (NEGATIVE) 01/23/22 22:14 Ur Culture Indicated? No/not indicated 01/23/22 22:14 SARS-CoV-2 (PCR) Negative (NEGATIVE) 01/23/22 21:12 Influenza Type A (PCR) Negative (NEGATIVE) 01/23/22 21:12 Influenza Type B (PCR) Negative (NEGATIVE) 01/23/22 21:12 RSV (PCR) Negative (NEGATIVE) 01/23/22 21:12 - Plan (1) Hyperammonemia Status: Acute Plan: Improving (2) AMS (altered mental status) Status: Acute Plan: Monitor ammonia levels. Gentle hydration. Repeat labs in am. NEuro checks. PT (3) Encephalopathy, hepatic Status: Acute (4) Cirrhosis, alcoholic Status: Chronic Qualifiers: Ascites presence: with ascites Qualified Code(s): K70.31 - Alcoholic cirrhosis of liver with ascites (5) Generalized weakness Status: Acute (6) Thrombocytopenia Status: Chronic (7) Elevated partial thromboplastin time (PTT) Status: Chronic (8) Chronic pain Status: Chronic Qualifiers: Chronic pain type: chronic pain syndrome Qualified Code(s): G89.4 - Chronic pain syndrome
[2022-01-25] MEDS ORDERED: XIFAXAN PO SCH (13:00)
[2022-01-25] MEDS: FOLIC ACID TAB 1 MG PO SCH (14:07)
[2022-01-25] MEDS: PriLOSEC PO SCH ×2 (14:08→20:30)
[2022-01-25] MEDS: PEPCID TAB 20 MG PO SCH ×2 (14:08→20:30)
--- NOTE | 2022-01-25 16:44 | CT ---
HISTORYAMSSTUDYBRAIN W/O CONCOMPARISONHead CT 01/09/2022TECHNIQUEMultiple CT axial images of the head were obtained without IV contrast. Coronal and sagittal images were reconstructed. Dose reduction techniques included Automated Exposure Control (AEC) and adjustment of mA and kV.FINDINGSMinimal age related changes are present.[place] and white matter have normal differentiation. There is no mass, shift, or hemorrhage. Cerebellar tonsils are at an appropriate level. No fluid in the sinuses or mucosal thickening to suggest sinusitis. There is no mastoid effusion.IMPRESSION1. No acute findingElectronically signed by: George Long (Jan 25, 2022 16:43:34)
[2022-01-25 20:47] LABS: ABG ALLEN TEST POS; ABG BASE EXCESS -2.8 mmol/L (-2.0-2.0); ABG HCO3 19.9 mmol/L (22-26)
[2022-01-25] MEDS ORDERED: CHRONULAC PO SCH (21:00)
[2022-01-26 04:58] LABS: AMMONIA 44 umol/L (11-32)
[2022-01-26 05:11] LABS: BASOPHILS % (AUTO) 0.2 % (0.2-1.0); EOSINOPHILS # (AUTO) 0.1 x10^3/uL (0.0-0.2); EOSINOPHILS % (AUTO) 1.2 % (0.9-2.9); HEMATOCRIT 20.6 % (42.0-54.0); HEMOGLOBIN 7.3 g/dL (13.5-18.0); LYMPHOCYTES # (AUTO) 0.9 X10^3/uL (1.3-2.9); LYMPHOCYTES % (AUTO) 19.6 % (21.0-51.0); MEAN CORPUSCULAR HEMOGLOBIN 37.4 pg (27.0-34.0); MEAN CORPUSCULAR HGB CONC 35.5 g/dL (33.0-35.0); MEAN CORPUSCULAR VOLUME 105.2 fL (80.0-100.0); MEAN PLATELET VOLUME 7.5 fL (7.4-11.0); MONOCYTES # (AUTO) 0.5 x10^3/uL (0.3-0.8); RED BLOOD COUNT 1.96 X10^6/uL (4.7-6.0); RED CELL DISTRIBUTION WIDTH 15.8 % (11.6-16.5); WHITE BLOOD COUNT 4.4 X10^3/uL (3.6-10.0)
[2022-01-26 05:25] LABS: ALANINE AMINOTRANSFERASE 25 Units/L (12-78); ALBUMIN 1.9 g/dL (3.4-5.0); ALKALINE PHOSPHATASE 95 Units/L (46-116); ASPARTATE AMINO TRANSFERASE 38 Units/L (15-37); BLOOD UREA NITROGEN 12 mg/dL (7-18); CALCIUM 7.5 mg/dL (8.5-10.1); CARBON DIOXIDE 19.9 mmol/L (21-32); CHLORIDE 110 mmol/L (98-107); COR CA(FOR HYPOALB) 9.2 mg/dL (8.5-10.1); CREATININE 0.74 mg/dL (0.70-1.30); SODIUM 137 mmol/L (136-145); TOTAL PROTEIN 5.1 g/dL (6.4-8.2); eGFR NON BLACK RACES > 60 (>60)
[2022-01-26 05:29] LABS: PLATELET MORPHOLOGY COMMENT NORMAL (NORMAL)
[2022-01-26 05:30] LABS: TEAR DROP CELLS PRESENT
--- NOTE | 2022-01-26 05:55 | RAD ---
HISTORYSOB Relevant Clinical InformationSTUDYCHEST, 1 [id number]/01/2022FINDINGSThe trachea is midline. The cardiac silhouette is unremarkable. The lungs are clear without focal infiltrate or effusion. The bony thorax is unremarkable.IMPRESSIONNo acute cardiopulmonary findings .Electronically signed by: Yefri Merrill (Jan 26, 2022 05:54:05)
[2022-01-26] MEDS: CHRONULAC PO SCH ×2 (08:08→20:12)
[2022-01-26] MEDS: FOLIC ACID TAB 1 MG PO SCH (08:08)
[2022-01-26] MEDS: PEPCID TAB 20 MG PO SCH ×2 (08:08→20:12)
[2022-01-26] MEDS: XIFAXAN PO SCH ×2 (08:09→20:12)
[2022-01-26] MEDS: PriLOSEC PO SCH ×2 (08:09→20:12)
[2022-01-26] MEDS ORDERED: ROCEPHIN VIAL 1 GRAM 1 G in NS 100 ML IV 100 ML IV SCH (13:00)
--- NOTE | 2022-01-26 14:41 | PCM.PROG ---
Progress Note - Subjective Subjective: Patient is a 46 year old chronically ill appearing male who was admitted as per HPI. Patient's mentation is back to baseline. Patient is alert and oriented today. Mother at bedside. Urine culture reveals UTI; Rocephin IV started; final culture report pending. Plan for discharge home in am. - Past Medical Family Social History Past Med/Fam/Surg Hx: No changes since H&P Allergies: Allergies No Known Drug Allergies Allergy (Verified 07/28/20 12:45) - Review of Systems ROS: No change since H&P - Vital Signs and I&O's Vital Signs: Temperature 98.1 F Pulse Rate [Left Brachial] 70 Pulse Rate 78 Respiratory Rate 24 Blood Pressure [Right Arm] 95/61 Blood Pressure 95/63 O2 Sat by Pulse Oximetry 100 Intake and Output: Intake & Output 01/23/22 01/24/22 01/25/22 01/26/22 23:59 23:59 23:59 23:59 Intake Total 2695 / 2695 2115 / 2115 475 / 475 Output Total 3700 / 3700 2200 / 2200 500 / 500 Balance -1005 / -1005 -85 / -85 -25 / -25 - Physical Exam Oriented: Normal, Time, Person, Place Eyes: Other (Jaundice) Ear: Normal Nose: Normal Throat: Normal Respiratory: Normal Cardiovascular: Normal, Murmur : Normal Auscultation: Bowel Sounds: Normal Palpation: Normal Tenderness: Normal Skin: Other (Jaundice) Musculoskeletal: Back:Lumbar, Tender Mood Description: Flat Affect: Flat Speech Pattern: Clear - Laboratory and Diagnostics Result Diagrams: 01/26/22 04:00 01/26/22 04:00 Labs: 01/24/22 18:54 Blood Blood Culture - Preliminary 01/24/22 18:46 Blood Blood Culture - Preliminary 01/24/22 18:24 Urine,Catheterized Urine Culture - Preliminary Laboratory WBC 4.4 X10^3/uL (3.6-10.0) 01/26/22 04:00 RBC 1.96 X10^6/uL (4.7-6.0) L 01/26/22 04:00 Hgb 7.3 g/dL (13.5-18.0) L 01/26/22 04:00 Hct 20.6 % (42.0-54.0) L 01/26/22 04:00 MCV 105.2 fL (80.0-100.0) H 01/26/22 04:00 MCH 37.4 pg (27.0-34.0) H 01/26/22 04:00 MCHC 35.5 g/dL (33.0-35.0) H 01/26/22 04:00 RDW 15.8 % (11.6-16.5) 01/26/22 04:00 Plt Count 30 X10^3/uL (150.0-450.0) L 01/26/22 04:00 Plt Count Comment Decreased (ADEQUATE) 01/26/22 04:00 MPV 7.5 fL (7.4-11.0) 01/26/22 04:00 Neut % (Auto) 68.0 % (42.0-75.0) 01/26/22 04:00 Lymph % (Auto) 19.6 % (21.0-51.0) L 01/26/22 04:00 [place] % (Auto) 11.0 % (0.0-13.0) 01/26/22 04:00 Eos % (Auto) 1.2 % (0.9-2.9) 01/26/22 04:00 Baso % (Auto) 0.2 % (0.2-1.0) 01/26/22 04:00 Neut # (Auto) 3.0 x10^3/uL (2.2-4.8) 01/26/22 04:00 Lymph # (Auto) 0.9 X10^3/uL (1.3-2.9) L 01/26/22 04:00 [place] # (Auto) 0.5 x10^3/uL (0.3-0.8) 01/26/22 04:00 Eos # (Auto) 0.1 x10^3/uL (0.0-0.2) 01/26/22 04:00 Baso # (Auto) 0.0 X10^3/uL (0.0-0.1) 01/26/22 04:00 Absolute Nucleated RBC 0.1 /100WBC 01/26/22 04:00 Plt Morphology Comment Normal (NORMAL) 01/26/22 04:00 RBC Morphology Abnormal (NORMAL) 01/26/22 04:00 Macrocytosis 1+ A 01/26/22 04:00 Tear Drop Cells Present 01/26/22 04:00 Acanthocytes (Spur) Slight 01/25/22 04:29 Schistocytes Present 01/24/22 04:00 PT 29.8 SECONDS (11.8-14.3) 01/26/22 04:00 INR Target Range - 01/26/22 04:00 INR 3.01 (0.8-1.3) H 01/26/22 04:00 APTT 47.8 SECONDS (22.9-36.5) H 01/23/22 18:06 PTT Comment - 01/23/22 18:06 Sample Site Rrad 01/25/22 20:45 ABG pH 7.460 (7.35-7.45) H 01/25/22 20:45 ABG pCO2 28.0 mmHg (35.0-45.0) L 01/25/22 20:45 ABG pO2 99.0 mmHg (80.0-100.0) 01/25/22 20:45 ABG HCO3 19.9 mmol/L (22-26) L 01/25/22 20:45 ABG O2 Saturation 98.0 % (90-100) 01/25/22 20:45 ABG Base Excess -2.8 mmol/L (-2.0-2.0) L 01/25/22 20:45 Pravin Test Pos 01/25/22 20:45 A-a Gradient 16.0 mmHg 01/25/22 20:45 FiO2 21.0 01/25/22 20:45 Blood Gas Comments Génesis well ms/kh 01/25/22 20:45 Sodium 137 mmol/L (136-145) 01/26/22 04:00 Corrected Sodium TNP 01/26/22 04:00 Potassium 3.6 mmol/L (3.5-5.1) 01/26/22 04:00 Chloride 110 mmol/L (98-107) H 01/26/22 04:00 Carbon Dioxide 19.9 mmol/L (21-32) L 01/26/22 04:00 BUN 12 mg/dL (7-18) 01/26/22 04:00 Creatinine 0.74 mg/dL (0.70-1.30) 01/26/22 04:00 Est GFR (MDRD) Af Amer > 60 (>60) 01/26/22 04:00 Est GFR (MDRD) Non-Af > 60 (>60) 01/26/22 04:00 Glucose 94 mg/dL (65-99) 01/26/22 04:00 POC Glucose (mg/dL) 114 mg/dL (65-99) H 01/23/22 18:05 Lactic Acid 1.0 mmol/L (0.4-2.0) 01/23/22 18:06 Calcium 7.5 mg/dL (8.5-10.1) L 01/26/22 04:00 Corrected Calcium 9.2 mg/dL (8.5-10.1) 01/26/22 04:00 Total Bilirubin 9.60 mg/dL (0.2-1.0) H 01/26/22 04:00 AST 38 Units/L (15-37) H 01/26/22 04:00 ALT 25 Units/L (12-78) 01/26/22 04:00 Alkaline Phosphatase 95 Units/L (46-116) 01/26/22 04:00 Ammonia 44 umol/L (11-32) H 01/26/22 04:00 Creatine Kinase 36 Units/L (39-308) L 01/23/22 18:06 CK-MB (CK-2) < 1.0 ng/mL (0-4.0) 01/23/22 18:06 CK/CKMB % Calc 2.8 % (<4) 01/23/22 18:06 Troponin I High Sens 13.7 ng/L (4.0-60.0) 01/23/22 18:06 Total Protein 5.1 g/dL (6.4-8.2) L 01/26/22 04:00 Albumin 1.9 g/dL (3.4-5.0) L 01/26/22 04:00 Globulin 3.2 g/dL (2.5-4.5) 01/26/22 04:00 Albumin/Globulin Ratio 0.6 Ratio (1.1-2.1) L 01/26/22 04:00 Amylase 23 Units/L (25-115) L 01/24/22 04:00 Lipase 99 Units/L (73-393) 01/24/22 04:00 Specimen Type Catherized urine 01/23/22 22:14 Urine Color Yellow (YELLOW) 01/23/22 22:14 Urine Appearance Clear (CLEAR) 01/23/22 22:14 Urine pH 7.0 (5.0 - 8.0) 01/23/22 22:14 Ur Specific [place] 1.010 (1.000-1.030) 01/23/22 22:14 Urine Protein Negative (NEGATIVE) 01/23/22 22:14 Urine Glucose (UA) Negative (NEGATIVE) 01/23/22 22:14 Urine Ketones Negative (NEGATIVE) 01/23/22 22:14 Urine Occult Blood 1+ (NEGATIVE) 01/23/22 22:14 Urine Nitrite Negative (NEGATIVE) 01/23/22 22:14 Urine Bilirubin Negative (NEGATIVE) 01/23/22 22:14 Urine Urobilinogen 2+ (NORMAL) 01/23/22 22:14 Ur Leukocyte Esterase Negative (NEGATIVE) 01/23/22 22:14 Urine RBC 5-10 /HPF (0-3) A 01/23/22 22:14 Urine WBC 0-2 /HPF (0-5) 01/23/22 22:14 Ur Squamous Epith Cells Rare /HPF (NEGATIVE) 01/23/22 22:14 Urine Bacteria Trace /HPF (NEGATIVE) 01/23/22 22:14 Ur Culture Indicated? No/not indicated 01/23/22 22:14 SARS-CoV-2 (PCR) Negative (NEGATIVE) 01/23/22 21:12 Influenza Type A (PCR) Negative (NEGATIVE) 01/23/22 21:12 Influenza Type B (PCR) Negative (NEGATIVE) 01/23/22 21:12 RSV (PCR) Negative (NEGATIVE) 01/23/22 21:12 - Plan (1) UTI (urinary tract infection) Status: Acute Plan: Start IV Rocephin. Pending final culture (2) Hyperammonemia Status: Acute Plan: Improving (3) AMS (altered mental status) Status: Acute Plan: Monitor ammonia levels. Gentle hydration. Repeat labs in am. NEuro checks. PT (4) Encephalopathy, hepatic Status: Acute (5) Cirrhosis, alcoholic Status: Chronic Qualifiers: Ascites presence: with ascites Qualified Code(s): K70.31 - Alcoholic cirrhosis of liver with ascites (6) Generalized weakness Status: Acute (7) Thrombocytopenia Status: Chronic (8) Elevated partial thromboplastin time (PTT) Status: Chronic (9) Chronic pain Status: Chronic Qualifiers: Chronic pain type: chronic pain syndrome Qualified Code(s): G89.4 - Chronic pain syndrome
[2022-01-26] MEDS: NS 1,000 ML IV 1,000 ML IV SCH (14:45)
[2022-01-26] MEDS: ROXICODONE TAB 5 MG PO PRN ×2 (14:49→20:11)
[2022-01-26] MEDS ORDERED: ROXICODONE TAB 5 MG PO ONE (14:49)
[2022-01-27] MEDS: NS 1,000 ML IV 1,000 ML IV SCH ×2 (01:30→18:17)
[2022-01-27 05:19] LABS: BASOPHILS % (AUTO) 0.3 % (0.2-1.0); EOSINOPHILS # (AUTO) 0.1 x10^3/uL (0.0-0.2); HEMATOCRIT 20.1 % (42.0-54.0); HEMOGLOBIN 7.1 g/dL (13.5-18.0); LYMPHOCYTES # (AUTO) 0.8 X10^3/uL (1.3-2.9); LYMPHOCYTES % (AUTO) 21.7 % (21.0-51.0); MEAN CORPUSCULAR HEMOGLOBIN 37.3 pg (27.0-34.0); MEAN CORPUSCULAR HGB CONC 35.1 g/dL (33.0-35.0); MEAN CORPUSCULAR VOLUME 106.4 fL (80.0-100.0); MEAN PLATELET VOLUME 8.2 fL (7.4-11.0); MONOCYTES # (AUTO) 0.5 x10^3/uL (0.3-0.8); MONOCYTES % (AUTO) 12.3 % (0.0-13.0); NEUTROPHILS # (AUTO) 2.4 x10^3/uL (2.2-4.8); NEUTROPHILS % (AUTO) 62.7 % (42.0-75.0); RED BLOOD COUNT 1.89 X10^6/uL (4.7-6.0); WHITE BLOOD COUNT 3.7 X10^3/uL (3.6-10.0)
[2022-01-27 05:25] LABS: AMMONIA 63 umol/L (11-32)
[2022-01-27 05:41] LABS: ALANINE AMINOTRANSFERASE 25 Units/L (12-78); ALBUMIN 1.9 g/dL (3.4-5.0); ALKALINE PHOSPHATASE 101 Units/L (46-116); ASPARTATE AMINO TRANSFERASE 35 Units/L (15-37); BLOOD UREA NITROGEN 13 mg/dL (7-18); CALCIUM 7.3 mg/dL (8.5-10.1); CARBON DIOXIDE 22.1 mmol/L (21-32); CHLORIDE 111 mmol/L (98-107); COR NA(FOR HYPERGLY) 139 mmol/L (136-145); CREATININE 0.84 mg/dL (0.70-1.30); SODIUM 139 mmol/L (136-145); TOTAL PROTEIN 4.9 g/dL (6.4-8.2); eGFR NON BLACK RACES > 60 (>60)
[2022-01-27 06:01] LABS: PLATELET MORPHOLOGY COMMENT NORMAL (NORMAL)
[2022-01-27 06:02] LABS: SCHISTOCYTES PRESENT; TEAR DROP CELLS PRESENT
[2022-01-27] MEDS: INVanz INJ 1 GRAM VIAL 1 G in NS 100 ML IV 100 ML IV SCH (09:32)
[2022-01-27] MEDS: CHRONULAC PO SCH ×3 (09:32→21:18)
[2022-01-27] MEDS: PEPCID TAB 20 MG PO SCH ×2 (09:33→20:15)
[2022-01-27] MEDS: PriLOSEC PO SCH ×2 (09:33→20:15)
[2022-01-27] MEDS: FOLIC ACID TAB 1 MG PO SCH (09:33)
[2022-01-27] MEDS: XIFAXAN PO SCH ×2 (09:33→20:15)
[2022-01-27] MEDS ORDERED: NS 500 ML IV 500 ML IV ONE (09:49)
[2022-01-27] MEDS: ROXICODONE TAB 5 MG PO PRN ×2 (10:57→22:31)
[2022-01-27 17:50] LABS: HEMATOCRIT 25.1 % (42.0-54.0); HEMOGLOBIN 8.8 g/dL (13.5-18.0)
--- NOTE | 2022-01-27 18:38 | PCM.PROG ---
Progress Note - Progress Note for Day of Date of Exam: 01/27/22 - Subjective Subjective: IS A 46 YEAR OLD PATIENT OF . HE WAS ADMITTED FOR TREATMENT OF AMS, E.COLI UTI, HEPATIC ENCEPHALOPATHY, ALCOHOLIC CIRRHOSIS, GENERALIZED WEAKNESS, THROMBOCYTOPENIA, HYPERAMMONEMIA, AND CHRONIC PAIN. HE HAS AN EXTENSIVE LIVER FAILURE HISTORY. HE IS CURRENTLY ON THE TRANSPLANT LIST AT [place]. OTHER HISTORY INCLUDES CIRRHOSIS, GERD, LEONIDAS, AND CHF. TODAY, HE IS ALERT AND ORIENTED, LYING IN BED ON MORNING ROUNDS. HE REPORTS GENERALIZED PAIN THIS MORNING AND WEAKNESS. OTHERWISE, NO COMPLAINTS. HE HAD AN UNEVENTFUL NIGHT. ON EXAMINATION, SKIN IS JAUNDICE. HEART IS REGULAR IN RATE AND RHYTHM. BILATERAL LUNGS CLEAR TO AUSCULTATION. ABDOMEN IS ROUND, SOFT, AND NON-TENDER WITH NORMAL LAB VALUES NOTED IN ALL QUADRANTS. HIS VIALS THIS MORNING ARE: 98.8-91-19-99%-119/57. LABS WERE OBTAINED. ABNORMAL LABS INCLUDE THE FOLLOWING: RBC 1.89, HGB 7.1, HCT 20.1, PLT COUNT 30, CHLORIDE 11, GLUCOSE 119, CALCIUM 7.3, TOTAL BILI 6.80, AMMONIA 63, TOTAL PROTEIN 4.9, ALBUMIN 1.9. URINE CULTURE POSITIVE FOR E.COLI. HE IS CURRENTLY RECEIVING NORMAL SALINE AT [facility], ROCEPHIN 1G IV DAILY, LACTULOSE 30ML PO BID, ZOFRAN 4MG IV Q6H PRN, ROXICODONE 5MG PO BID PRN, PEPCID 20MG PO BID, FOLIC ACID 1MG PO DAILY, AND XIFAXIN 550MG PO BID. TODAY, WE WILL DISCONTINUE THE ROCEPHIN AND ADD INVANZ 1G IV DAILY. WE WILL INCREASE ROXICODONE TO 10MG PO BID PRN AND INCREASE LACTULOSE TO TID. WE WILL T RANSFUSE 2 UNITS OF PACKED RED BLOOD CELLS TODAY. OTHERWISE, WE WILL FOLLOW UP WITH AM LABS AND CONTINUE TO MONITOR. TIME SPENT ON CLINICAL ASSESSMENT, REVIEWING LABS AND IMAGING, DECISION MAKING, AND DOCUMENTATION WAS GREATER THAN 45 MINUTES. - Past Medical Family Social History Past Med/Fam/Surg Hx: No changes since H&P Allergies: Allergies No Known Drug Allergies Allergy (Verified 07/28/20 12:45) - Review of Systems ROS: No change since H&P - Vital Signs and I&O's Vital Signs: Temperature 98 F Pulse Rate [Left Brachial] 70 Pulse Rate 90 Respiratory Rate 19 Blood Pressure [Right Arm] 95/61 Blood Pressure 128/66 O2 Sat by Pulse Oximetry 99 Intake and Output: Intake & Output 01/25/22 01/26/22 01/27/22 01/28/22 11:59 11:59 11:59 11:59 Intake Total 2215 / 2215 2165 / 2165 2145 / 2145 600 / 600 Output Total 2800 / 2800 2100 / 2100 900 / 900 Balance -585 / -585 65 / 65 1245 / 1245 600 / 600 - Physical Exam Oriented: Normal, Time, Person, Place Eyes: Other (Jaundice) Ear: Normal Nose: Normal Throat: Normal Respiratory: Normal Cardiovascular: Normal, Murmur : Normal Auscultation: Bowel Sounds: Normal Palpation: Normal Tenderness: Normal Skin: Other (Jaundice) Musculoskeletal: Back:Lumbar, Tender Mood Description: Flat Affect: Flat Speech Pattern: Clear - Laboratory and Diagnostics Result Diagrams: 01/27/22 17:35 01/27/22 04:23 Labs: 01/24/22 18:24 Urine,Catheterized Urine Culture - Final Escherichia Coli 01/24/22 18:54 Blood Blood Culture - Preliminary 01/24/22 18:46 Blood Blood Culture - Preliminary Laboratory WBC 3.7 X10^3/uL (3.6-10.0) 01/27/22 04:23 RBC 1.89 X10^6/uL (4.7-6.0) L 01/27/22 04:23 Hgb 8.8 g/dL (13.5-18.0) L 01/27/22 17:35 Hct 25.1 % (42.0-54.0) L 01/27/22 17:35 MCV 106.4 fL (80.0-100.0) H 01/27/22 04:23 MCH 37.3 pg (27.0-34.0) H 01/27/22 04:23 MCHC 35.1 g/dL (33.0-35.0) H 01/27/22 04:23 RDW 16.0 % (11.6-16.5) 01/27/22 04:23 Plt Count 30 X10^3/uL (150.0-450.0) L 01/27/22 04:23 Plt Count Comment Decreased (ADEQUATE) 01/27/22 04:23 MPV 8.2 fL (7.4-11.0) 01/27/22 04:23 Neut % (Auto) 62.7 % (42.0-75.0) 01/27/22 04:23 Lymph % (Auto) 21.7 % (21.0-51.0) 01/27/22 04:23 [place] % (Auto) 12.3 % (0.0-13.0) 01/27/22 04:23 Eos % (Auto) 3.0 % (0.9-2.9) H 01/27/22 04:23 Baso % (Auto) 0.3 % (0.2-1.0) 01/27/22 04:23 Neut # (Auto) 2.4 x10^3/uL (2.2-4.8) 01/27/22 04:23 Lymph # (Auto) 0.8 X10^3/uL (1.3-2.9) L 01/27/22 04:23 [place] # (Auto) 0.5 x10^3/uL (0.3-0.8) 01/27/22 04:23 Eos # (Auto) 0.1 x10^3/uL (0.0-0.2) 01/27/22 04:23 Baso # (Auto) 0.0 X10^3/uL (0.0-0.1) 01/27/22 04:23 Absolute Nucleated RBC 0.1 /100WBC 01/27/22 04:23 Plt Morphology Comment Normal (NORMAL) 01/27/22 04:23 RBC Morphology Abnormal (NORMAL) 01/27/22 04:23 Macrocytosis 1+ A 01/27/22 04:23 Tear Drop Cells Present 01/27/22 04:23 Acanthocytes (Spur) Slight 01/25/22 04:29 Schistocytes Present 01/27/22 04:23 PT 29.8 SECONDS (11.8-14.3) 01/26/22 04:00 INR Target Range - 01/26/22 04:00 INR 3.01 (0.8-1.3) H 01/26/22 04:00 APTT 47.8 SECONDS (22.9-36.5) H 01/23/22 18:06 PTT Comment - 01/23/22 18:06 Sample Site Rrad 01/25/22 20:45 ABG pH 7.460 (7.35-7.45) H 01/25/22 20:45 ABG pCO2 28.0 mmHg (35.0-45.0) L 01/25/22 20:45 ABG pO2 99.0 mmHg (80.0-100.0) 01/25/22 20:45 ABG HCO3 19.9 mmol/L (22-26) L 01/25/22 20:45 ABG O2 Saturation 98.0 % (90-100) 01/25/22 20:45 ABG Base Excess -2.8 mmol/L (-2.0-2.0) L 01/25/22 20:45 Pravin Test Pos 01/25/22 20:45 A-a Gradient 16.0 mmHg 01/25/22 20:45 FiO2 21.0 01/25/22 20:45 Blood Gas Comments Génesis well ms/kh 01/25/22 20:45 Sodium 139 mmol/L (136-145) 01/27/22 04:23 Corrected Sodium 139 mmol/L (136-145) 01/27/22 04:23 Potassium 3.6 mmol/L (3.5-5.1) 01/27/22 04:23 Chloride 111 mmol/L (98-107) H 01/27/22 04:23 Carbon Dioxide 22.1 mmol/L (21-32) 01/27/22 04:23 BUN 13 mg/dL (7-18) 01/27/22 04:23 Creatinine 0.84 mg/dL (0.70-1.30) 01/27/22 04:23 Est GFR (MDRD) Af Amer > 60 (>60) 01/27/22 04:23 Est GFR (MDRD) Non-Af > 60 (>60) 01/27/22 04:23 Glucose 119 mg/dL (65-99) H 01/27/22 04:23 POC Glucose (mg/dL) 114 mg/dL (65-99) H 01/23/22 18:05 Lactic Acid 1.0 mmol/L (0.4-2.0) 01/23/22 18:06 Calcium 7.3 mg/dL (8.5-10.1) L 01/27/22 04:23 Corrected Calcium 9.0 mg/dL (8.5-10.1) 01/27/22 04:23 Total Bilirubin 6.80 mg/dL (0.2-1.0) H 01/27/22 04:23 AST 35 Units/L (15-37) 01/27/22 04:23 ALT 25 Units/L (12-78) 01/27/22 04:23 Alkaline Phosphatase 101 Units/L (46-116) 01/27/22 04:23 Ammonia 63 umol/L (11-32) H 01/27/22 04:23 Creatine Kinase 36 Units/L (39-308) L 01/23/22 18:06 CK-MB (CK-2) < 1.0 ng/mL (0-4.0) 01/23/22 18:06 CK/CKMB % Calc 2.8 % (<4) 01/23/22 18:06 Troponin I High Sens 13.7 ng/L (4.0-60.0) 01/23/22 18:06 Total Protein 4.9 g/dL (6.4-8.2) L 01/27/22 04:23 Albumin 1.9 g/dL (3.4-5.0) L 01/27/22 04:23 Globulin 3.0 g/dL (2.5-4.5) 01/27/22 04:23 Albumin/Globulin Ratio 0.6 Ratio (1.1-2.1) L 01/27/22 04:23 Amylase 23 Units/L (25-115) L 01/24/22 04:00 Lipase 99 Units/L (73-393) 01/24/22 04:00 Specimen Type Catherized urine 01/23/22 22:14 Urine Color Yellow (YELLOW) 01/23/22 22:14 Urine Appearance Clear (CLEAR) 01/23/22 22:14 Urine pH 7.0 (5.0 - 8.0) 01/23/22 22:14 Ur Specific [place] 1.010 (1.000-1.030) 01/23/22 22:14 Urine Protein Negative (NEGATIVE) 01/23/22 22:14 Urine Glucose (UA) Negative (NEGATIVE) 01/23/22 22:14 Urine Ketones Negative (NEGATIVE) 01/23/22 22:14 Urine Occult Blood 1+ (NEGATIVE) 01/23/22 22:14 Urine Nitrite Negative (NEGATIVE) 01/23/22 22:14 Urine Bilirubin Negative (NEGATIVE) 01/23/22 22:14 Urine Urobilinogen 2+ (NORMAL) 01/23/22 22:14 Ur Leukocyte Esterase Negative (NEGATIVE) 01/23/22 22:14 Urine RBC 5-10 /HPF (0-3) A 01/23/22 22:14 Urine WBC 0-2 /HPF (0-5) 01/23/22 22:14 Ur Squamous Epith Cells Rare /HPF (NEGATIVE) 01/23/22 22:14 Urine Bacteria Trace /HPF (NEGATIVE) 01/23/22 22:14 Ur Culture Indicated? No/not indicated 01/23/22 22:14 SARS-CoV-2 (PCR) Negative (NEGATIVE) 01/23/22 21:12 Influenza Type A (PCR) Negative (NEGATIVE) 01/23/22 21:12 Influenza Type B (PCR) Negative (NEGATIVE) 01/23/22 21:12 RSV (PCR) Negative (NEGATIVE) 01/23/22 21:12 Blood Type A NEGATIVE 01/27/22 10:08 Antibody Screen Negative 01/27/22 10:08 Crossmatch See Detail 01/27/22 10:08 - Plan (1) UTI (urinary tract infection) Status: Acute Qualifiers: Urinary tract infection type: acute cystitis Hematuria presence: without hematuria Qualified Code(s): N30.00 - Acute cystitis without hematuria (2) Hyperammonemia Status: Acute (3) AMS (altered mental status) Status: Acute Qualifiers: Altered mental status type: transient alteration of awareness Qualified Code(s): R40.4 - Transient alteration of awareness Plan: Monitor ammonia levels. Gentle hydration. Repeat labs in am. NEuro checks. PT (4) Liver cirrhosis Status: Acute Qualifiers: Hepatic cirrhosis type: alcoholic cirrhosis Ascites presence: unspecified Qualified Code(s): K70.30 - Alcoholic cirrhosis of liver without ascites (5) Encephalopathy, hepatic Status: Acute (6) Generalized weakness Status: Acute (7) Thrombocytopenia Status: Acute (8) Elevated partial thromboplastin time (PTT) Status: Chronic (9) Chronic pain Status: Chronic Qualifiers: Chronic pain type: chronic pain syndrome Qualified Code(s): G89.4 - Chronic pain syndrome
[2022-01-28 05:00] LABS: BASOPHILS % (AUTO) 0.7 % (0.2-1.0); EOSINOPHILS # (AUTO) 0.2 x10^3/uL (0.0-0.2); EOSINOPHILS % (AUTO) 4.3 % (0.9-2.9); HEMATOCRIT 23.3 % (42.0-54.0); HEMOGLOBIN 8.1 g/dL (13.5-18.0); LYMPHOCYTES # (AUTO) 0.9 X10^3/uL (1.3-2.9); MEAN CORPUSCULAR HEMOGLOBIN 35.9 pg (27.0-34.0); MEAN CORPUSCULAR HGB CONC 34.7 g/dL (33.0-35.0); MEAN CORPUSCULAR VOLUME 103.5 fL (80.0-100.0); MEAN PLATELET VOLUME 8.4 fL (7.4-11.0); MONOCYTES # (AUTO) 0.5 x10^3/uL (0.3-0.8); MONOCYTES % (AUTO) 13.1 % (0.0-13.0); NEUTROPHILS # (AUTO) 2.3 x10^3/uL (2.2-4.8); NEUTROPHILS % (AUTO) 58.9 % (42.0-75.0); RED BLOOD COUNT 2.25 X10^6/uL (4.7-6.0); RED CELL DISTRIBUTION WIDTH 18.3 % (11.6-16.5); WHITE BLOOD COUNT 3.9 X10^3/uL (3.6-10.0)
[2022-01-28 05:10] LABS: AMMONIA 45 umol/L (11-32)
[2022-01-28 05:24] LABS: ALANINE AMINOTRANSFERASE 28 Units/L (12-78); ALBUMIN 1.9 g/dL (3.4-5.0); ALKALINE PHOSPHATASE 107 Units/L (46-116); ASPARTATE AMINO TRANSFERASE 37 Units/L (15-37); BLOOD UREA NITROGEN 12 mg/dL (7-18); CALCIUM 7.4 mg/dL (8.5-10.1); CARBON DIOXIDE 23.9 mmol/L (21-32); CHLORIDE 111 mmol/L (98-107); COR CA(FOR HYPOALB) 9.1 mg/dL (8.5-10.1); CREATININE 0.78 mg/dL (0.70-1.30); SODIUM 139 mmol/L (136-145); eGFR NON BLACK RACES > 60 (>60)
[2022-01-28] MEDS: CHRONULAC PO SCH ×2 (06:00→13:32)
[2022-01-28] MEDS: INVanz INJ 1 GRAM VIAL 1 G in NS 100 ML IV 100 ML IV SCH (08:44)
[2022-01-28] MEDS: PriLOSEC PO SCH (08:44)
[2022-01-28] MEDS: ROXICODONE TAB 5 MG PO PRN (08:44)
[2022-01-28] MEDS: FOLIC ACID TAB 1 MG PO SCH (08:45)
[2022-01-28] MEDS: PEPCID TAB 20 MG PO SCH (08:45)
[2022-01-28] MEDS: XIFAXAN PO SCH (08:48)
[2022-01-28] MEDS: NS 1,000 ML IV 1,000 ML IV SCH (09:56)
[2022-01-28 13:32] VITALS: BP 133/68
== END 2022-01-28 14:00 | disposition home or self-care (01) ==
LOC: U 17:45 → ER 17:45 → INTOOBSV 22:05 → OBSVTOIN 22:05 → U 01-24 00:40 → ICU 01-24 09:53 → UNDODISIN 01-28 14:00
PROVIDERS: ADMIT Internal Medicine; ATTEND Internal Medicine

== ENCOUNTER 2022-02-15 17:47 | Observation (INO) ==
--- NOTE | 2022-02-15 18:15 | DR.GENAD ---
HPI <Uziel Spencer - Last Filed: 02/15/22 20:14> Time Seen Time Seen by Provider: 02/15/22 18:15 PCP Primary Care Physician: ELIA Salazar JET INSPECTOR Complaint/Symptoms Chief Complaint Doctors Comments: 46 y/o male presents with scrotal swelling. Has a h/o R inguinal hernia, was going to have it repaired, but developed liver failure. Was hospitalized in [place] for awhile. Now with swelling of his scrotum over the past few days. Having pain of the scrotum, constant, dull, does not radiate. Worse with palpation, movement. Nothing makes it better. Denies associated fever, chills, nausea, vomiting, bowel changes. Has difficulty with urination, as glans of penis surrounded by scrotal swelling. Chief Complaint:: PT REPORTS HAVING INGUINAL HERNIA TO RIGHT SIDE ( SUJATHA JULIEN TO PERFORM SURGERY BUT IT WAS POSTPONED DUE TO HIS LIVER FAILURE ( PT REPORTS HAVING > SWELLING OVER THE PAST WEEK OF HIS LEFT TESTICLE ) ,,BR COVID-19 Coronavirus risk:travel/contact w/high risk person: No Has patient experienced Coronavirus symptoms: No Nurses notes reviewed Nurses Notes Review: Yes Source History Provided: Patient Mode of Arrival Mode of Arrival: Ambulatory Timing Onset of Chief Complaint: 02/15/22 PMH <Uziel Spencer - Last Filed: 02/15/22 20:14> PMH Past Medical History: Yes Past Medical History: Anxiety, GERD, Kidney Stones and Liver Disease Past Surgical History: Yes Surgical History: Lithotripsy Family History History of Family Medical Conditions: Yes Family Medical History: Diabetes Mellitus and Coronary Artery Disease Social History Does patient currently use any type of tobacco product: No Have you used tobacco products in the last 12 months: No Type of Tobacco Use: None Does any household member use tobacco: No Alcohol Use: None Do you use any recreational Drugs:: No Lives With: Family Lives Where: Home Travel Risk Coronavirus risk:travel/contact w/high risk person: No Has patient experienced Coronavirus symptoms: No Infectious screening In the last 2 months have you had wt loss of >10#?: NO Have you had fever, night sweats or hemotysis?: No Have you traveled outside the country in the last 6 months?: No Isolation: Standard ROS <Uziel Spencer - Last Filed: 02/15/22 20:14> Review of Systems Constitutional: No Symptoms Reported Eyes: No Symptoms Reported ENTM: No Symptoms Reported Respiratoy: No Symptoms Reported Cardiovascular: No Symptoms Reported Gastrointestinal/Abdominal: No Symptoms Reported Genitourinary: Pain and Other (swelling) Neurological: No Symptoms Reported Musculoskeletal: No Symptoms Reported Integumentary: No Symptoms Reported Hematologic/Lymphatic: No Symptoms Reported Psychiatric: No Symptoms Reported All Other Systems: Reviewed and Negative PE <Uziel Spencer - Last Filed: 02/15/22 20:14> Vital Signs Vitals: Temperature 98.5 F Pulse Rate 68 Respiratory Rate 22 Blood Pressure [Right Arm] 95/61 Blood Pressure [Left Arm] 118/62 Blood Pressure [Right Arm] 115/77 Blood Pressure 137/66 O2 Sat by Pulse Oximetry 99 General Limitations: No Limitations General Appearance: Alert and In No Apparent Distress Head Head Exam: Normal Inspection Eyes Eye exam: Other (+ mild icterus) ENT ENT Exam: Mucous Membranes Moist Neck Neck Exam: Normal Inspection Chest Chest Inspection: Normal Inspection Respiratory Respiratory Exam: Normal Lung Sounds Bilat; negative Accessory Muscle Use and Respiratory Distress Respiratory Exam: Bilateral: Clear to Auscultation Cardiovascular Cardiovascular Exam: Regular Rate, Normal Rhythm and Normal Heart Sounds Abdominal Exam Abdominal Exam: Normal Inspection, Normal Bowel Sounds and Soft; negative Tenderness Extremities Extremities Exam: Edema (4+) Back Back Exam: Other (+ presacral pitting edema) Neurologic Neurological Exam: Alert, Oriented X3 and CN II-XII Intact; negative Motor Sensory Deficit Psychiatric Psychiatric Exam: Normal Affect Skin Skin Exam: Warm and Dry Other Exam Other Exam: Scrotum - + diffuse swelling. + penis retracted into scrotum, but easily exposed with scrotal pressure. + probable underlying R inguinal hernia, does <Jane Long - Last Filed: 02/16/22 00:05> Vital Signs Vitals: Temperature 98.5 F Pulse Rate 68 Respiratory Rate 22 Blood Pressure [Right Arm] 95/61 Blood Pressure [Left Arm] 118/62 Blood Pressure [Right Arm] 115/77 Blood Pressure 137/66 O2 Sat by Pulse Oximetry 99 MDM <Uziel Spencer - Last Filed: 02/15/22 20:14> Differential Diagnosis Differential Diagnosis: anasarca, edema, cirrhosis, hernia COURSE <Uziel Spencer - Last Filed: 02/15/22 20:14> Treatment Treatment: Pt with bilateral scrotal edema x few days, + h/o liver failure, on two diuretics (furosemide, spironolactone), both BID. Will check labs and give IV furosemide now. Does not appear to have an incarerated hernia as the cause. 195 - Has put out some urine, but having difficulty with urination due to penis being retracted into te scrotum. He requests a Rosario to help him urinate. Will have nurses place a Rosario, additional lasix ordered.Hgb down to 6.8. Received blood not too long ago. Offered observation admission, for further diuresis, possible blood transfusion, pt wants to see if he puts out more urine after Rosario placed, and additional furosemide given. Will sign pt out to my relief MD, Dr Long. <Jane Long - Last Filed: 02/16/22 00:05> Treatment Treatment: Resting quietly; reports "dark" stools recently; feels weak and tired; admission discussed with pt and who both agree Consultation Call Returned: 00:03 (Dr Gonzalez accepts admission) ROR <Uziel Spencer - Last Filed: 02/15/22 20:14> Labs Reviewed Result Diagrams: 02/15/22 23:10 02/15/22 18:36 Laboratory: WBC 4.8 X10^3/uL (3.6-10.0) 02/15/22 23:10 RBC 1.89 X10^6/uL (4.7-6.0) L 02/15/22 23:10 Hgb 7.0 g/dL (13.5-18.0) L 02/15/22 23:10 Hct 20.6 % (42.0-54.0) L 02/15/22 23:10 MCV 108.6 fL (80.0-100.0) H 02/15/22 23:10 MCH 36.9 pg (27.0-34.0) H 02/15/22 23:10 MCHC 34.0 g/dL (33.0-35.0) 02/15/22 23:10 RDW 17.6 % (11.6-16.5) H 02/15/22 23:10 Plt Count 45 X10^3/uL (150.0-450.0) L 02/15/22 23:10 Plt Count Comment Decreased (ADEQUATE) 02/15/22 23:10 MPV 9.2 fL (7.4-11.0) 02/15/22 23:10 Neut % (Auto) 62.7 % (42.0-75.0) 02/15/22 23:10 Lymph % (Auto) 20.7 % (21.0-51.0) L 02/15/22 23:10 [place] % (Auto) 14.8 % (0.0-13.0) H 02/15/22 23:10 Eos % (Auto) 1.5 % (0.9-2.9) 02/15/22 23:10 Baso % (Auto) 0.3 % (0.2-1.0) 02/15/22 23:10 Neut # (Auto) 3.0 x10^3/uL (2.2-4.8) 02/15/22 23:10 Lymph # (Auto) 1.0 X10^3/uL (1.3-2.9) L 02/15/22 23:10 [place] # (Auto) 0.7 x10^3/uL (0.3-0.8) 02/15/22 23:10 Eos # (Auto) 0.1 x10^3/uL (0.0-0.2) 02/15/22 23:10 Baso # (Auto) 0.0 X10^3/uL (0.0-0.1) 02/15/22 23:10 Absolute Nucleated RBC 0.1 /100WBC 02/15/22 23:10 Plt Morphology Comment Normal (NORMAL) 02/15/22 23:10 RBC Morphology Abnormal (NORMAL) 02/15/22 23:10 Anisocytosis Slight A 02/15/22 23:10 Macrocytosis 1+ A 02/15/22 23:10 Schistocytes Present 02/15/22 23:10 Sodium 137 mmol/L (136-145) 02/15/22 18:36 Corrected Sodium TNP 02/15/22 18:36 Potassium 4.5 mmol/L (3.5-5.1) 02/15/22 18:36 Chloride 109 mmol/L (98-107) H 02/15/22 18:36 Carbon Dioxide 23.2 mmol/L (21-32) 02/15/22 18:36 BUN 20 mg/dL (7-18) H 02/15/22 18:36 Creatinine 1.09 mg/dL (0.70-1.30) 02/15/22 18:36 Est GFR (MDRD) Af Amer > 60 (>60) 02/15/22 18:36 Est GFR (MDRD) Non-Af > 60 (>60) 02/15/22 18:36 Glucose 107 mg/dL (65-99) H 02/15/22 18:36 Calcium 6.8 mg/dL (8.5-10.1) L 02/15/22 18:36 Corrected Calcium 8.6 mg/dL (8.5-10.1) 02/15/22 18:36 Total Bilirubin 7.40 mg/dL (0.2-1.0) H 02/15/22 18:36 AST 38 Units/L (15-37) H 02/15/22 18:36 ALT 31 Units/L (12-78) 02/15/22 18:36 Alkaline Phosphatase 113 Units/L (46-116) 02/15/22 18:36 Total Protein 4.3 g/dL (6.4-8.2) L 02/15/22 18:36 Albumin 1.7 g/dL (3.4-5.0) L 02/15/22 18:36 Globulin 2.6 g/dL (2.5-4.5) 02/15/22 18:36 Albumin/Globulin Ratio 0.7 Ratio (1.1-2.1) L 02/15/22 18:36 Specimen Type Catherized urine 02/15/22 20:09 Urine Color Yellow (YELLOW) 02/15/22 20:09 Urine Appearance Clear (CLEAR) 02/15/22 20:09 Urine pH 6.0 (5.0 - 8.0) 02/15/22 20:09 Ur Specific [place] 1.010 (1.000-1.030) 02/15/22 20:09 Urine Protein Negative (NEGATIVE) 02/15/22 20:09 Urine Glucose (UA) Negative (NEGATIVE) 02/15/22 20:09 Urine Ketones Negative (NEGATIVE) 02/15/22 20:09 Urine Occult Blood 2+ (NEGATIVE) 02/15/22 20:09 Urine Nitrite Negative (NEGATIVE) 02/15/22 20:09 Urine Bilirubin Negative (NEGATIVE) 02/15/22 20:09 Urine Urobilinogen Normal (NORMAL) 02/15/22 20:09 Ur Leukocyte Esterase Negative (NEGATIVE) 02/15/22 20:09 Urine RBC 3-5 /HPF (0-3) A 02/15/22 20:09 Urine WBC 0-2 /HPF (0-5) 02/15/22 20:09 Ur Squamous Epith Cells Negative /HPF (NEGATIVE) 02/15/22 20:09 Urine Bacteria Trace /HPF (NEGATIVE) 02/15/22 20:09 Hyaline Casts Rare /LPF (NEGATIVE) 02/15/22 20:09 Ur Culture Indicated? No/not indicated 02/15/22 20:09 <Jane Long - Last Filed: 02/16/22 00:05> Labs Reviewed Laboratory Results Reviewed?: Yes Laboratory: WBC 4.8 X10^3/uL (3.6-10.0) 02/15/22 23:10 RBC 1.89 X10^6/uL (4.7-6.0) L 02/15/22 23:10 Hgb 7.0 g/dL (13.5-18.0) L 02/15/22 23:10 Hct 20.6 % (42.0-54.0) L 02/15/22 23:10 MCV 108.6 fL (80.0-100.0) H 02/15/22 23:10 MCH 36.9 pg (27.0-34.0) H 02/15/22 23:10 MCHC 34.0 g/dL (33.0-35.0) 02/15/22 23:10 RDW 17.6 % (11.6-16.5) H 02/15/22 23:10 Plt Count 45 X10^3/uL (150.0-450.0) L 02/15/22 23:10 Plt Count Comment Decreased (ADEQUATE) 02/15/22 23:10 MPV 9.2 fL (7.4-11.0) 02/15/22 23:10 Neut % (Auto) 62.7 % (42.0-75.0) 02/15/22 23:10 Lymph % (Auto) 20.7 % (21.0-51.0) L 02/15/22 23:10 [place] % (Auto) 14.8 % (0.0-13.0) H 02/15/22 23:10 Eos % (Auto) 1.5 % (0.9-2.9) 02/15/22 23:10 Baso % (Auto) 0.3 % (0.2-1.0) 02/15/22 23:10 Neut # (Auto) 3.0 x10^3/uL (2.2-4.8) 02/15/22 23:10 Lymph # (Auto) 1.0 X10^3/uL (1.3-2.9) L 02/15/22 23:10 [place] # (Auto) 0.7 x10^3/uL (0.3-0.8) 02/15/22 23:10 Eos # (Auto) 0.1 x10^3/uL (0.0-0.2) 02/15/22 23:10 Baso # (Auto) 0.0 X10^3/uL (0.0-0.1) 02/15/22 23:10 Absolute Nucleated RBC 0.1 /100WBC 02/15/22 23:10 Plt Morphology Comment Normal (NORMAL) 02/15/22 23:10 RBC Morphology Abnormal (NORMAL) 02/15/22 23:10 Anisocytosis Slight A 02/15/22 23:10 Macrocytosis 1+ A 02/15/22 23:10 Schistocytes Present 02/15/22 23:10 Sodium 137 mmol/L (136-145) 02/15/22 18:36 Corrected Sodium TNP 02/15/22 18:36 Potassium 4.5 mmol/L (3.5-5.1) 02/15/22 18:36 Chloride 109 mmol/L (98-107) H 02/15/22 18:36 Carbon Dioxide 23.2 mmol/L (21-32) 02/15/22 18:36 BUN 20 mg/dL (7-18) H 02/15/22 18:36 Creatinine 1.09 mg/dL (0.70-1.30) 02/15/22 18:36 Est GFR (MDRD) Af Amer > 60 (>60) 02/15/22 18:36 Est GFR (MDRD) Non-Af > 60 (>60) 02/15/22 18:36 Glucose 107 mg/dL (65-99) H 02/15/22 18:36 Calcium 6.8 mg/dL (8.5-10.1) L 02/15/22 18:36 Corrected Calcium 8.6 mg/dL (8.5-10.1) 02/15/22 18:36 Total Bilirubin 7.40 mg/dL (0.2-1.0) H 02/15/22 18:36 AST 38 Units/L (15-37) H 02/15/22 18:36 ALT 31 Units/L (12-78) 02/15/22 18:36 Alkaline Phosphatase 113 Units/L (46-116) 02/15/22 18:36 Total Protein 4.3 g/dL (6.4-8.2) L 02/15/22 18:36 Albumin 1.7 g/dL (3.4-5.0) L 02/15/22 18:36 Globulin 2.6 g/dL (2.5-4.5) 02/15/22 18:36 Albumin/Globulin Ratio 0.7 Ratio (1.1-2.1) L 02/15/22 18:36 Specimen Type Catherized urine 02/15/22 20:09 Urine Color Yellow (YELLOW) 02/15/22 20:09 Urine Appearance Clear (CLEAR) 02/15/22 20:09 Urine pH 6.0 (5.0 - 8.0) 02/15/22 20:09 Ur Specific [place] 1.010 (1.000-1.030) 02/15/22 20:09 Urine Protein Negative (NEGATIVE) 02/15/22 20:09 Urine Glucose (UA) Negative (NEGATIVE) 02/15/22 20:09 Urine Ketones Negative (NEGATIVE) 02/15/22 20:09 Urine Occult Blood 2+ (NEGATIVE) 02/15/22 20:09 Urine Nitrite Negative (NEGATIVE) 02/15/22 20:09 Urine Bilirubin Negative (NEGATIVE) 02/15/22 20:09 Urine Urobilinogen Normal (NORMAL) 02/15/22 20:09 Ur Leukocyte Esterase Negative (NEGATIVE) 02/15/22 20:09 Urine RBC 3-5 /HPF (0-3) A 02/15/22 20:09 Urine WBC 0-2 /HPF (0-5) 02/15/22 20:09 Ur Squamous Epith Cells Negative /HPF (NEGATIVE) 02/15/22 20:09 Urine Bacteria Trace /HPF (NEGATIVE) 02/15/22 20:09 Hyaline Casts Rare /LPF (NEGATIVE) 02/15/22 20:09 Ur Culture Indicated? No/not indicated 02/15/22 20:09 Opioid <Uziel Spencer - Last Filed: 02/15/22 20:14> Opioid Risk Tool Age (Moises box if 16-45): No History of Preadolescent Sexual Abuse: No Total: 0 Total Score Risk Category: Low Risk Copyright: Fernando VASQUEZ predicting aberrant behaviors <Jane Long - Last Filed: 02/16/22 00:05> Opioid Risk Tool Total: 0 Total Score Risk Category: Low Risk <Uziel Spencer - Last Filed: 02/15/22 20:14> Diagnosis Discharge Problem: Anasarca, Thrombocytopenia, Chronic liver disease and cirrhosis Anemia Qualifiers: Anemia type: unspecified type Qualified Code(s): D64.9 - Anemia, unspecified Instructions Instructions: Scrotal Swelling Forms: [facility] Social Distancing
[2022-02-15] MEDS ORDERED: LASIX IVP ONE ×4 (18:26→20:12)
[2022-02-15 18:45] LABS: EOSINOPHILS # (AUTO) 0.1 x10^3/uL (0.0-0.2); HEMATOCRIT 20.2 % (42.0-54.0); LYMPHOCYTES # (AUTO) 1.2 X10^3/uL (1.3-2.9); MEAN CORPUSCULAR HGB CONC 33.5 g/dL (33.0-35.0); MEAN CORPUSCULAR VOLUME 109.3 fL (80.0-100.0); RED BLOOD COUNT 1.85 X10^6/uL (4.7-6.0); RED CELL DISTRIBUTION WIDTH 18.5 % (11.6-16.5); WHITE BLOOD COUNT 5.2 X10^3/uL (3.6-10.0)
[2022-02-15 18:49] LABS: BASOPHILS % (AUTO) 0.3 % (0.2-1.0); EOSINOPHILS % (AUTO) 2.5 % (0.9-2.9); LYMPHOCYTES % (AUTO) 23.6 % (21.0-51.0); MEAN CORPUSCULAR HEMOGLOBIN 36.6 pg (27.0-34.0); MONOCYTES # (AUTO) 0.8 x10^3/uL (0.3-0.8); NEUTROPHILS % (AUTO) 57.6 % (42.0-75.0)
[2022-02-15 18:55] LABS: ALANINE AMINOTRANSFERASE 31 Units/L (12-78); ALBUMIN 1.7 g/dL (3.4-5.0); ALKALINE PHOSPHATASE 113 Units/L (46-116); ASPARTATE AMINO TRANSFERASE 38 Units/L (15-37); BLOOD UREA NITROGEN 20 mg/dL (7-18); CALCIUM 6.8 mg/dL (8.5-10.1); CARBON DIOXIDE 23.2 mmol/L (21-32); CHLORIDE 109 mmol/L (98-107); COR CA(FOR HYPOALB) 8.6 mg/dL (8.5-10.1); CREATININE 1.09 mg/dL (0.70-1.30); SODIUM 137 mmol/L (136-145); TOTAL PROTEIN 4.3 g/dL (6.4-8.2); eGFR NON BLACK RACES > 60 (>60)
[2022-02-15 19:03] LABS: HEMOGLOBIN 6.8 g/dL (13.5-18.0); PLATELET MORPHOLOGY COMMENT NORMAL (NORMAL)
[2022-02-15 20:18] LABS: BILIRUBIN,URINE NEGATIVE (NEGATIVE); BLOOD/HEMOGLOBIN,URINE 2+ (NEGATIVE); GLUCOSE, URINE NEGATIVE (NEGATIVE); KETONES,URINE NEGATIVE (NEGATIVE); LEUKOCYTE ESTERASE ,URINE NEGATIVE (NEGATIVE); NITRITES,URINE NEGATIVE (NEGATIVE); PROTEIN,URINE NEGATIVE (NEGATIVE); UROBILINOGEN,URINE NORMAL (NORMAL)
[2022-02-15 20:22] LABS: APPEARANCE,URINE CLEAR (CLEAR); COLOR,URINE YELLOW (YELLOW)
[2022-02-15 20:29] LABS: BACTERIA,URINE TRACE /HPF (NEGATIVE); HYALINE CASTS, URINE RARE /LPF (NEGATIVE); SQUAMOUS EPITHELIAL CELL,UR NEGATIVE /HPF (NEGATIVE)
[2022-02-15 23:28] LABS: BASOPHILS % (AUTO) 0.3 % (0.2-1.0); EOSINOPHILS # (AUTO) 0.1 x10^3/uL (0.0-0.2); EOSINOPHILS % (AUTO) 1.5 % (0.9-2.9); HEMATOCRIT 20.6 % (42.0-54.0); LYMPHOCYTES % (AUTO) 20.7 % (21.0-51.0); MEAN CORPUSCULAR HEMOGLOBIN 36.9 pg (27.0-34.0); MEAN CORPUSCULAR VOLUME 108.6 fL (80.0-100.0); MEAN PLATELET VOLUME 9.2 fL (7.4-11.0); MONOCYTES # (AUTO) 0.7 x10^3/uL (0.3-0.8); MONOCYTES % (AUTO) 14.8 % (0.0-13.0); NEUTROPHILS % (AUTO) 62.7 % (42.0-75.0); RED BLOOD COUNT 1.89 X10^6/uL (4.7-6.0); RED CELL DISTRIBUTION WIDTH 17.6 % (11.6-16.5); WHITE BLOOD COUNT 4.8 X10^3/uL (3.6-10.0)
[2022-02-15 23:47] LABS: ANISOCYTOSIS SLIGHT; PLATELET MORPHOLOGY COMMENT NORMAL (NORMAL); SCHISTOCYTES PRESENT
[2022-02-16 01:15] VITALS: BMI 25.7
[2022-02-16] MEDS ORDERED: NS 500 ML IV 500 ML IV ONE (01:52)
[2022-02-16] MEDS ORDERED: NS 1,000 ML IV 1,000 ML ONE (05:16)
[2022-02-16 06:08] LABS: BASOPHILS % (AUTO) 0.1 % (0.2-1.0); EOSINOPHILS # (AUTO) 0.1 x10^3/uL (0.0-0.2); EOSINOPHILS % (AUTO) 1.9 % (0.9-2.9); HEMATOCRIT 21.8 % (42.0-54.0); HEMOGLOBIN 7.4 g/dL (13.5-18.0); LYMPHOCYTES # (AUTO) 0.9 X10^3/uL (1.3-2.9); MEAN CORPUSCULAR HEMOGLOBIN 35.9 pg (27.0-34.0); MEAN CORPUSCULAR HGB CONC 33.9 g/dL (33.0-35.0); MEAN CORPUSCULAR VOLUME 105.9 fL (80.0-100.0); MEAN PLATELET VOLUME 8.7 fL (7.4-11.0); MONOCYTES # (AUTO) 0.6 x10^3/uL (0.3-0.8); MONOCYTES % (AUTO) 13.1 % (0.0-13.0); NEUTROPHILS # (AUTO) 3.3 x10^3/uL (2.2-4.8); NEUTROPHILS % (AUTO) 65.9 % (42.0-75.0); RED BLOOD COUNT 2.06 X10^6/uL (4.7-6.0); RED CELL DISTRIBUTION WIDTH 20.1 % (11.6-16.5)
[2022-02-16 06:16] LABS: AMMONIA 44 umol/L (11-32)
[2022-02-16 06:19] LABS: ALANINE AMINOTRANSFERASE 29 Units/L (12-78); ALBUMIN 1.6 g/dL (3.4-5.0); ALKALINE PHOSPHATASE 112 Units/L (46-116); ASPARTATE AMINO TRANSFERASE 38 Units/L (15-37); BLOOD UREA NITROGEN 23 mg/dL (7-18); CARBON DIOXIDE 23.6 mmol/L (21-32); CHLORIDE 109 mmol/L (98-107); COR CA(FOR HYPOALB) 8.9 mg/dL (8.5-10.1); CREATININE 0.92 mg/dL (0.70-1.30); SODIUM 137 mmol/L (136-145); TOTAL PROTEIN 4.2 g/dL (6.4-8.2); eGFR NON BLACK RACES > 60 (>60)
[2022-02-16 06:35] LABS: PLATELET MORPHOLOGY COMMENT NORMAL (NORMAL)
[2022-02-16 06:36] LABS: ANISOCYTOSIS 1+; HYPOCHROMASIA SLIGHT
[2022-02-16] MEDS: NS 1,000 ML IV 1,000 ML IV SCH ×2 (08:15→21:30)
[2022-02-16] MEDS: LASIX IVP SCH ×2 (09:46→17:21)
[2022-02-16] MEDS ORDERED: NS 250 ML IV 250 ML IV ONE (10:06)
[2022-02-16] MEDS: ROXICODONE TAB 5 MG PO PRN (13:23)
[2022-02-16 14:50] LABS: HEMATOCRIT 25.2 % (42.0-54.0); HEMOGLOBIN 8.8 g/dL (13.5-18.0)
--- NOTE | 2022-02-16 23:50 | DR.H&P ---
H&P - History & Physical for Day of: H&P Date: 02/15/22 - Chief Complaint Chief Complaint: Scrotal edema - History of Present Illness History of Present Illness: Patient is a 46 year old white male who was admitted due to scrotal swelling. Patient has a history of liver cirrhosis and has chronic edema. Patient does become more swollen at times than others. Patient reports increased edema. Patient states scrotom so significantly swollen he is having difficulty urinating. Brock has been placed. Patient is also hypotensive. Patient's normal BP is on the low side however bp is much lower. PMH cirrhosis, chronic pain, LEONIDAS, anasarca, CHF, chronic anemia and thrombocytopenia. No other concerns at present. - Past Medical History Past Medical History: Anxiety, Cirrhosis, CHF, Depression, GERD, Kidney Stones, Liver Disease Additional Medical History: Mitral Valve Prolapse, HYPERTROPHIC CARDIOMYOPATHY. DIASTOLIC DYSFUNCTION - Past Surgical History Surgical History: Lithotripsy Additional Surgical History: Abdominal Paracentesis, Liver Biopsy - Family History Family Medical History: Diabetes Mellitus, Coronary Artery Disease - Social History Does patient currently use any type of tobacco product: No Have you used tobacco products in the last 12 months: No Type of Tobacco Use: None Does any household member use tobacco: No Alcohol Use: None Drug Use: None - Medications Home Medications: No Known Drug Allergies Allergy (Verified 07/28/20 12:45) - Review of Systems Constitutional: See HPI Eyes: See HPI ENT: See HPI Respiratory: See HPI Cardiovascular: See HPI Gastrointestinal: See HPI Genitourinary: See HPI Musculoskeletal: See HPI Skin: See HPI Neurological: See HPI - Physical Exam Vital Signs: Temperature 98.7 F Pulse Rate 83 Respiratory Rate 15 Blood Pressure [Right Arm] 95/61 Blood Pressure [Left Arm] 118/62 Blood Pressure [Right Arm] 115/77 Blood Pressure 125/55 O2 Sat by Pulse Oximetry 99 Oriented: Normal, Time, Person, Place Eyes: Other (Jaundice) Ear: Normal Nose: Normal Throat: Normal Respiratory: RLL Diminished, LLL Diminished Cardiovascular: Murmur : Testicular Pain, Other (Scrotal edema; brock for retention) Auscultation: Bowel Sounds: Normal Palpation: Liver Enlarged (Edema to abdomen) Tenderness: Normal Skin: Other (Jaundice) Musculoskeletal: Back:Lumbar, Tender, Instability Psychiatric: Normal Mood Description: Calm Affect: Normal Speech Pattern: Clear, Appropriate - Assessment/Plan (1) UTI (urinary tract infection) Qualifiers: Urinary tract infection type: acute cystitis Hematuria presence: without hematuria Qualified Code(s): N30.00 - Acute cystitis without hematuria Status: Acute Plan: IV abx and cultures (2) Anemia Qualifiers: Anemia type: unspecified type Qualified Code(s): D64.9 - Anemia, unspecified Status: Acute Plan: Admit. PRBC transfusion. Lasix IV. Repeat labs in am. Brock (3) Scrotal edema Status: Acute (4) Chronic liver disease and cirrhosis Status: Chronic (5) Generalized weakness Status: Acute (6) Hernia, inguinal, right Status: Chronic (7) Hyperammonemia Status: Chronic (8) Hyperbilirubinemia Status: Chronic (9) Thrombocytopenia Status: Chronic (10) Chronic pain Qualifiers: Chronic pain type: chronic pain syndrome Qualified Code(s): G89.4 - Chronic pain syndrome Status: Chronic - Allergies Allergies/Adverse Reactions: Allergies Allergy/AdvReac Type Severity Reaction Status Date / Time No Known Drug Allergies Allergy Verified 07/28/20 12:45
[2022-02-16] MEDS ORDERED: PHENERGAN TAB 25 MG PO PRN (23:57)
[2022-02-16] MEDS ORDERED: ROXICODONE TAB 5 MG PO PRN (23:57)
--- NOTE | 2022-02-16 23:57 | PCM.PROG ---
Progress Note - Subjective Subjective: Patient was admitted as per HPI. Patient receiving PRBC transfusion. Patient labs are at his baseline. Patient reports improvement in scrotal edema and pain. No other concerns at present. Possible dc home in am. - Past Medical Family Social History Past Med/Fam/Surg Hx: No changes since H&P Allergies: Allergies No Known Drug Allergies Allergy (Verified 07/28/20 12:45) - Review of Systems ROS: No change since H&P - Vital Signs and I&O's Vital Signs: Temperature 98.7 F Pulse Rate 83 Respiratory Rate 15 Blood Pressure [Right Arm] 95/61 Blood Pressure [Left Arm] 118/62 Blood Pressure [Right Arm] 115/77 Blood Pressure 125/55 O2 Sat by Pulse Oximetry 99 Intake and Output: Intake & Output 02/13/22 02/14/22 02/15/22 02/16/22 23:59 23:59 23:59 23:59 Intake Total 4116 / 4116 Output Total 1800 / 1800 2024 Balance -1800 / -1800 2090 - Physical Exam Oriented: Normal, Time, Person, Place Eyes: Other (Jaundice) Ear: Normal Nose: Normal Throat: Normal Respiratory: Diminished Cardiovascular: Murmur : Testicular Pain, Other (Scrotal edema; brock for retention) Auscultation: Bowel Sounds: Normal Palpation: Liver Enlarged Tenderness: Normal Skin: Other (Jaundice) Musculoskeletal: Back:Lumbar, Tender, Instability Psychiatric: Normal Mood Description: Calm Affect: Normal Speech Pattern: Clear, Appropriate - Laboratory and Diagnostics Result Diagrams: 02/16/22 14:40 02/16/22 05:50 Labs: Laboratory WBC 5.0 X10^3/uL (3.6-10.0) 02/16/22 05:50 RBC 2.06 X10^6/uL (4.7-6.0) L 02/16/22 05:50 Hgb 8.8 g/dL (13.5-18.0) L 02/16/22 14:40 Hct 25.2 % (42.0-54.0) L 02/16/22 14:40 MCV 105.9 fL (80.0-100.0) H 02/16/22 05:50 MCH 35.9 pg (27.0-34.0) H 02/16/22 05:50 MCHC 33.9 g/dL (33.0-35.0) 02/16/22 05:50 RDW 20.1 % (11.6-16.5) H 02/16/22 05:50 Plt Count 42 X10^3/uL (150.0-450.0) L 02/16/22 05:50 Plt Count Comment Decreased (ADEQUATE) 02/16/22 05:50 MPV 8.7 fL (7.4-11.0) 02/16/22 05:50 Neut % (Auto) 65.9 % (42.0-75.0) 02/16/22 05:50 Lymph % (Auto) 19.0 % (21.0-51.0) L 02/16/22 05:50 [place] % (Auto) 13.1 % (0.0-13.0) H 02/16/22 05:50 Eos % (Auto) 1.9 % (0.9-2.9) 02/16/22 05:50 Baso % (Auto) 0.1 % (0.2-1.0) L 02/16/22 05:50 Neut # (Auto) 3.3 x10^3/uL (2.2-4.8) 02/16/22 05:50 Lymph # (Auto) 0.9 X10^3/uL (1.3-2.9) L 02/16/22 05:50 [place] # (Auto) 0.6 x10^3/uL (0.3-0.8) 02/16/22 05:50 Eos # (Auto) 0.1 x10^3/uL (0.0-0.2) 02/16/22 05:50 Baso # (Auto) 0.0 X10^3/uL (0.0-0.1) 02/16/22 05:50 Absolute Nucleated RBC 0.0 /100WBC 02/16/22 05:50 Plt Morphology Comment Normal (NORMAL) 02/16/22 05:50 RBC Morphology Abnormal (NORMAL) 02/16/22 05:50 Hypochromasia Slight A 02/16/22 05:50 Anisocytosis 1+ A 02/16/22 05:50 Macrocytosis Slight A 02/16/22 05:50 Schistocytes Present 02/15/22 23:10 Sodium 137 mmol/L (136-145) 02/16/22 05:50 Corrected Sodium TNP 02/16/22 05:50 Potassium 4.5 mmol/L (3.5-5.1) 02/16/22 05:50 Chloride 109 mmol/L (98-107) H 02/16/22 05:50 Carbon Dioxide 23.6 mmol/L (21-32) 02/16/22 05:50 BUN 23 mg/dL (7-18) H 02/16/22 05:50 Creatinine 0.92 mg/dL (0.70-1.30) 02/16/22 05:50 Est GFR (MDRD) Af Amer > 60 (>60) 02/16/22 05:50 Est GFR (MDRD) Non-Af > 60 (>60) 02/16/22 05:50 Glucose 105 mg/dL (65-99) H 02/16/22 05:50 Calcium 7.0 mg/dL (8.5-10.1) L 02/16/22 05:50 Corrected Calcium 8.9 mg/dL (8.5-10.1) 02/16/22 05:50 Total Bilirubin 7.40 mg/dL (0.2-1.0) H 02/16/22 05:50 AST 38 Units/L (15-37) H 02/16/22 05:50 ALT 29 Units/L (12-78) 02/16/22 05:50 Alkaline Phosphatase 112 Units/L (46-116) 02/16/22 05:50 Ammonia 44 umol/L (11-32) H 02/16/22 05:50 Total Protein 4.2 g/dL (6.4-8.2) L 02/16/22 05:50 Albumin 1.6 g/dL (3.4-5.0) L 02/16/22 05:50 Globulin 2.6 g/dL (2.5-4.5) 02/16/22 05:50 Albumin/Globulin Ratio 0.6 Ratio (1.1-2.1) L 02/16/22 05:50 Specimen Type Catherized urine 02/15/22 20:09 Urine Color Yellow (YELLOW) 02/15/22 20:09 Urine Appearance Clear (CLEAR) 02/15/22 20:09 Urine pH 6.0 (5.0 - 8.0) 02/15/22 20:09 Ur Specific [place] 1.010 (1.000-1.030) 02/15/22 20:09 Urine Protein Negative (NEGATIVE) 02/15/22 20:09 Urine Glucose (UA) Negative (NEGATIVE) 02/15/22 20:09 Urine Ketones Negative (NEGATIVE) 02/15/22 20:09 Urine Occult Blood 2+ (NEGATIVE) 02/15/22 20:09 Urine Nitrite Negative (NEGATIVE) 02/15/22 20:09 Urine Bilirubin Negative (NEGATIVE) 02/15/22 20:09 Urine Urobilinogen Normal (NORMAL) 02/15/22 20:09 Ur Leukocyte Esterase Negative (NEGATIVE) 02/15/22 20:09 Urine RBC 3-5 /HPF (0-3) A 02/15/22 20:09 Urine WBC 0-2 /HPF (0-5) 02/15/22 20:09 Ur Squamous Epith Cells Negative /HPF (NEGATIVE) 02/15/22 20:09 Urine Bacteria Trace /HPF (NEGATIVE) 02/15/22 20:09 Hyaline Casts Rare /LPF (NEGATIVE) 02/15/22 20:09 Ur Culture Indicated? No/not indicated 02/15/22 20:09 SARS CoV-2 RNA Rapid ADAM Negative (NEGATIVE) 02/15/22 23:52 Blood Type A NEGATIVE 02/16/22 00:25 Antibody Screen Negative 02/16/22 00:25 Crossmatch See Detail 02/16/22 00:25 - Plan (1) UTI (urinary tract infection) Status: Acute Qualifiers: Urinary tract infection type: acute cystitis Hematuria presence: without hematuria Qualified Code(s): N30.00 - Acute cystitis without hematuria Plan: IV abx and cultures (2) Anemia Status: Acute Qualifiers: Anemia type: unspecified type Qualified Code(s): D64.9 - Anemia, unspecified Plan: Admit. PRBC transfusion. Lasix IV. Repeat labs in am. Brock (3) Scrotal edema Status: Acute (4) Chronic liver disease and cirrhosis Status: Chronic (5) Generalized weakness Status: Acute (6) Hernia, inguinal, right Status: Chronic (7) Hyperammonemia Status: Chronic (8) Hyperbilirubinemia Status: Chronic (9) Thrombocytopenia Status: Chronic (10) Chronic pain Status: Chronic Qualifiers: Chronic pain type: chronic pain syndrome Qualified Code(s): G89.4 - Chronic pain syndrome
[2022-02-17] MEDS: KLONOPIN TAB 0.5 MG PO SCH ×2 (00:48→20:40)
[2022-02-17] MEDS: ROXICODONE TAB 5 MG PO PRN (00:49)
[2022-02-17 04:53] LABS: AMMONIA 37 umol/L (11-32)
[2022-02-17 05:00] LABS: BASOPHILS % (AUTO) 0.2 % (0.2-1.0); EOSINOPHILS # (AUTO) 0.1 x10^3/uL (0.0-0.2); EOSINOPHILS % (AUTO) 1.9 % (0.9-2.9); HEMATOCRIT 23.7 % (42.0-54.0); HEMOGLOBIN 8.4 g/dL (13.5-18.0); LYMPHOCYTES # (AUTO) 1.2 X10^3/uL (1.3-2.9); LYMPHOCYTES % (AUTO) 21.1 % (21.0-51.0); MEAN CORPUSCULAR HEMOGLOBIN 35.5 pg (27.0-34.0); MEAN CORPUSCULAR HGB CONC 35.2 g/dL (33.0-35.0); MEAN PLATELET VOLUME 8.5 fL (7.4-11.0); MONOCYTES # (AUTO) 0.6 x10^3/uL (0.3-0.8); MONOCYTES % (AUTO) 11.5 % (0.0-13.0); NEUTROPHILS # (AUTO) 3.6 x10^3/uL (2.2-4.8); NEUTROPHILS % (AUTO) 65.3 % (42.0-75.0); RED BLOOD COUNT 2.35 X10^6/uL (4.7-6.0); RED CELL DISTRIBUTION WIDTH 20.8 % (11.6-16.5); WHITE BLOOD COUNT 5.6 X10^3/uL (3.6-10.0)
[2022-02-17 05:12] LABS: ALANINE AMINOTRANSFERASE 29 Units/L (12-78); ALBUMIN 1.6 g/dL (3.4-5.0); ALKALINE PHOSPHATASE 106 Units/L (46-116); ASPARTATE AMINO TRANSFERASE 40 Units/L (15-37); BLOOD UREA NITROGEN 19 mg/dL (7-18); CALCIUM 6.8 mg/dL (8.5-10.1); CARBON DIOXIDE 22.6 mmol/L (21-32); CHLORIDE 108 mmol/L (98-107); COR CA(FOR HYPOALB) 8.7 mg/dL (8.5-10.1); CREATININE 0.83 mg/dL (0.70-1.30); SODIUM 137 mmol/L (136-145); TOTAL PROTEIN 4.2 g/dL (6.4-8.2); eGFR NON BLACK RACES > 60 (>60)
[2022-02-17] MEDS: CHRONULAC PO SCH ×3 (05:13→21:07)
[2022-02-17 06:01] LABS: ANISOCYTOSIS 1+; PLATELET MORPHOLOGY COMMENT NORMAL (NORMAL)
[2022-02-17] MEDS: ALDACTONE TAB 25 MG PO SCH ×2 (10:15→20:40)
[2022-02-17] MEDS: FOLIC ACID TAB 1 MG PO SCH (10:15)
[2022-02-17] MEDS: XIFAXAN PO SCH ×2 (10:45→20:40)
[2022-02-17] MEDS: PriLOSEC PO SCH ×2 (10:45→20:40)
[2022-02-17] MEDS: PEPCID TAB 20 MG PO SCH ×2 (10:45→20:40)
[2022-02-17] MEDS: NS 1,000 ML IV 1,000 ML IV SCH ×2 (10:59→16:20)
[2022-02-17] MEDS: LASIX IVP SCH ×2 (11:03→17:30)
[2022-02-17] MEDS: ROXICODONE TAB 5 MG PO SCH ×2 (14:16→21:08)
--- NOTE | 2022-02-17 15:42 | PCM.PROG ---
Progress Note Progress Note for Day of Date of Exam: 02/17/22 Subjective Subjective: Patient was admitted as per HPI. Patient receiving PRBC transfusion. Patient labs are at his baseline. Patient reports improvement in scrotal edema and pain that is still present this morning. No other concerns at present. He does ask for an increase in his pain medicine this morning. I will change his oxycodone every 8 hours instead of every 12 hours. Possible dc home in am. Past Medical Family Social History Past Med/Fam/Surg Hx: No changes since H&P Allergies: Allergies No Known Drug Allergies Allergy (Verified 07/28/20 12:45) Review of Systems ROS: No change since H&P Vital Signs and I&O's Vital Signs: Temperature 98.0 F Pulse Rate 75 Respiratory Rate 18 Blood Pressure [Right Arm] 95/61 Blood Pressure [Left Arm] 118/62 Blood Pressure [Right Arm] 115/77 Blood Pressure 124/67 O2 Sat by Pulse Oximetry 98 Intake and Output: Intake & Output 02/15/22 02/16/22 02/17/22 02/18/22 11:59 11:59 11:59 11:59 Intake Total 700 / 700 4377 / 4377 Output Total 2350 / 2350 1875 / 1875 Balance -1650 / -1650 2502 / 2502 Physical Exam Oriented: Normal, Time, Person and Place Eyes: Other (Jaundice) Ear: Normal Nose: Normal Throat: Normal Respiratory: Diminished Cardiovascular: Murmur : Testicular Pain and Other (Scrotal edema; brock for retention) Auscultation: Bowel Sounds: Normal Tenderness: Normal Skin: Other (Jaundice) Musculoskeletal: Back:Lumbar, Tender and Instability Psychiatric: Normal Mood Description: Calm Affect: Normal Speech Pattern: Clear and Appropriate Laboratory and Diagnostics Result Diagrams: 02/17/22 04:05 02/17/22 04:05 Labs: Laboratory WBC 5.6 X10^3/uL (3.6-10.0) 02/17/22 04:05 RBC 2.35 X10^6/uL (4.7-6.0) L 02/17/22 04:05 Hgb 8.4 g/dL (13.5-18.0) L 02/17/22 04:05 Hct 23.7 % (42.0-54.0) L 02/17/22 04:05 MCV 101.0 fL (80.0-100.0) H 02/17/22 04:05 MCH 35.5 pg (27.0-34.0) H 02/17/22 04:05 MCHC 35.2 g/dL (33.0-35.0) H 02/17/22 04:05 RDW 20.8 % (11.6-16.5) H 02/17/22 04:05 Plt Count 40 X10^3/uL (150.0-450.0) L 02/17/22 04:05 Plt Count Comment Decreased (ADEQUATE) 02/17/22 04:05 MPV 8.5 fL (7.4-11.0) 02/17/22 04:05 Neut % (Auto) 65.3 % (42.0-75.0) 02/17/22 04:05 Lymph % (Auto) 21.1 % (21.0-51.0) 02/17/22 04:05 [place] % (Auto) 11.5 % (0.0-13.0) 02/17/22 04:05 Eos % (Auto) 1.9 % (0.9-2.9) 02/17/22 04:05 Baso % (Auto) 0.2 % (0.2-1.0) 02/17/22 04:05 Neut # (Auto) 3.6 x10^3/uL (2.2-4.8) 02/17/22 04:05 Lymph # (Auto) 1.2 X10^3/uL (1.3-2.9) L 02/17/22 04:05 [place] # (Auto) 0.6 x10^3/uL (0.3-0.8) 02/17/22 04:05 Eos # (Auto) 0.1 x10^3/uL (0.0-0.2) 02/17/22 04:05 Baso # (Auto) 0.0 X10^3/uL (0.0-0.1) 02/17/22 04:05 Absolute Nucleated RBC 0.0 /100WBC 02/17/22 04:05 Plt Morphology Comment Normal (NORMAL) 02/17/22 04:05 RBC Morphology Abnormal (NORMAL) 02/17/22 04:05 Hypochromasia Slight A 02/16/22 05:50 Anisocytosis 1+ A 02/17/22 04:05 Macrocytosis Slight A 02/17/22 04:05 Schistocytes Present 02/15/22 23:10 Sodium 137 mmol/L (136-145) 02/17/22 04:05 Corrected Sodium TNP 02/17/22 04:05 Potassium 3.9 mmol/L (3.5-5.1) 02/17/22 04:05 Chloride 108 mmol/L (98-107) H 02/17/22 04:05 Carbon Dioxide 22.6 mmol/L (21-32) 02/17/22 04:05 BUN 19 mg/dL (7-18) H 02/17/22 04:05 Creatinine 0.83 mg/dL (0.70-1.30) 02/17/22 04:05 Est GFR (MDRD) Af Amer > 60 (>60) 02/17/22 04:05 Est GFR (MDRD) Non-Af > 60 (>60) 02/17/22 04:05 Glucose 99 mg/dL (65-99) 02/17/22 04:05 Calcium 6.8 mg/dL (8.5-10.1) L 02/17/22 04:05 Corrected Calcium 8.7 mg/dL (8.5-10.1) 02/17/22 04:05 Total Bilirubin 7.80 mg/dL (0.2-1.0) H 02/17/22 04:05 AST 40 Units/L (15-37) H 02/17/22 04:05 ALT 29 Units/L (12-78) 02/17/22 04:05 Alkaline Phosphatase 106 Units/L (46-116) 02/17/22 04:05 Ammonia 37 umol/L (11-32) H 02/17/22 04:05 Total Protein 4.2 g/dL (6.4-8.2) L 02/17/22 04:05 Albumin 1.6 g/dL (3.4-5.0) L 02/17/22 04:05 Globulin 2.6 g/dL (2.5-4.5) 02/17/22 04:05 Albumin/Globulin Ratio 0.6 Ratio (1.1-2.1) L 02/17/22 04:05 Specimen Type Catherized urine 02/15/22 20:09 Urine Color Yellow (YELLOW) 02/15/22 20:09 Urine Appearance Clear (CLEAR) 02/15/22 20:09 Urine pH 6.0 (5.0 - 8.0) 02/15/22 20:09 Ur Specific [place] 1.010 (1.000-1.030) 02/15/22 20:09 Urine Protein Negative (NEGATIVE) 02/15/22 20:09 Urine Glucose (UA) Negative (NEGATIVE) 02/15/22 20:09 Urine Ketones Negative (NEGATIVE) 02/15/22 20:09 Urine Occult Blood 2+ (NEGATIVE) 02/15/22 20:09 Urine Nitrite Negative (NEGATIVE) 02/15/22 20:09 Urine Bilirubin Negative (NEGATIVE) 02/15/22 20:09 Urine Urobilinogen Normal (NORMAL) 02/15/22 20:09 Ur Leukocyte Esterase Negative (NEGATIVE) 02/15/22 20:09 Urine RBC 3-5 /HPF (0-3) A 02/15/22 20:09 Urine WBC 0-2 /HPF (0-5) 02/15/22 20:09 Ur Squamous Epith Cells Negative /HPF (NEGATIVE) 02/15/22 20:09 Urine Bacteria Trace /HPF (NEGATIVE) 02/15/22 20:09 Hyaline Casts Rare /LPF (NEGATIVE) 02/15/22 20:09 Ur Culture Indicated? No/not indicated 02/15/22 20:09 Stool Description 200 grams 02/17/22 10:58 Stl Occult Blood (IFOB) Positive (NEGATIVE) A 02/17/22 10:58 SARS CoV-2 RNA Rapid ADAM Negative (NEGATIVE) 02/15/22 23:52 Blood Type A NEGATIVE 02/16/22 00:25 Antibody Screen Negative 02/16/22 00:25 Crossmatch See Detail 02/16/22 00:25 Plan (1) UTI (urinary tract infection): Status: Acute Qualifiers: Urinary tract infection type: acute cystitis Hematuria presence: without hematuria Qualified Code(s): N30.00 - Acute cystitis without hematuria Plan: IV abx and cultures (2) Anemia: Status: Acute Qualifiers: Anemia type: unspecified type Qualified Code(s): D64.9 - Anemia, unspecified Narrative Support Text: Plan: Admit PRBC transfusion Lasix IV Repeat labs in am Abraham (3) Scrotal edema: Status: Acute Narrative Support Text: (4) Chronic liver disease and cirrhosis: Status: Chronic (5) Generalized weakness: Status: Acute (6) Hernia, inguinal, right: Status: Chronic (7) Hyperammonemia: Status: Chronic (8) Hyperbilirubinemia: Status: Chronic (9) Thrombocytopenia: Status: Chronic (10) Chronic pain: Status: Chronic Qualifiers: Chronic pain type: chronic pain syndrome Qualified Code(s): G89.4 - Chronic pain syndrome
[2022-02-17] MEDS ORDERED: MAALOX or MYLANTA PO PRN (16:21)
[2022-02-17] MEDS ORDERED: MAALOX or MYLANTA ONE (16:28)
[2022-02-18] MEDS: NS 1,000 ML IV 1,000 ML IV SCH ×3 (04:00→13:38)
[2022-02-18 04:38] LABS: AMMONIA 26 umol/L (11-32)
[2022-02-18 04:49] LABS: BASOPHILS % (AUTO) 0.3 % (0.2-1.0); EOSINOPHILS # (AUTO) 0.1 x10^3/uL (0.0-0.2); EOSINOPHILS % (AUTO) 2.4 % (0.9-2.9); HEMATOCRIT 22.9 % (42.0-54.0); LYMPHOCYTES % (AUTO) 21.4 % (21.0-51.0); MEAN CORPUSCULAR HEMOGLOBIN 35.4 pg (27.0-34.0); MEAN CORPUSCULAR HGB CONC 34.8 g/dL (33.0-35.0); MEAN CORPUSCULAR VOLUME 101.5 fL (80.0-100.0); MEAN PLATELET VOLUME 8.3 fL (7.4-11.0); MONOCYTES # (AUTO) 0.5 x10^3/uL (0.3-0.8); MONOCYTES % (AUTO) 11.7 % (0.0-13.0); NEUTROPHILS # (AUTO) 2.9 x10^3/uL (2.2-4.8); NEUTROPHILS % (AUTO) 64.2 % (42.0-75.0); RED BLOOD COUNT 2.26 X10^6/uL (4.7-6.0); RED CELL DISTRIBUTION WIDTH 21.2 % (11.6-16.5); WHITE BLOOD COUNT 4.5 X10^3/uL (3.6-10.0)
[2022-02-18 04:52] LABS: ALANINE AMINOTRANSFERASE 28 Units/L (12-78); ALBUMIN 1.5 g/dL (3.4-5.0); ALKALINE PHOSPHATASE 107 Units/L (46-116); ASPARTATE AMINO TRANSFERASE 40 Units/L (15-37); BLOOD UREA NITROGEN 15 mg/dL (7-18); CALCIUM 6.5 mg/dL (8.5-10.1); CARBON DIOXIDE 23.5 mmol/L (21-32); CHLORIDE 109 mmol/L (98-107); COR CA(FOR HYPOALB) 8.5 mg/dL (8.5-10.1); CREATININE 0.74 mg/dL (0.70-1.30); SODIUM 136 mmol/L (136-145); TOTAL PROTEIN 4.2 g/dL (6.4-8.2); eGFR NON BLACK RACES > 60 (>60)
[2022-02-18 05:31] LABS: ANISOCYTOSIS 1+; PLATELET MORPHOLOGY COMMENT NORMAL (NORMAL); TEAR DROP CELLS PRESENT
[2022-02-18] MEDS: ROXICODONE TAB 5 MG PO SCH ×4 (06:06→21:15)
[2022-02-18] MEDS: CHRONULAC PO SCH ×3 (06:06→21:14)
[2022-02-18] MEDS: ALDACTONE TAB 25 MG PO SCH ×2 (08:00→20:00)
[2022-02-18] MEDS: PriLOSEC PO SCH ×2 (08:00→20:00)
[2022-02-18] MEDS: FOLIC ACID TAB 1 MG PO SCH (08:00)
[2022-02-18] MEDS: PEPCID TAB 20 MG PO SCH ×2 (08:00→20:00)
[2022-02-18] MEDS: LASIX IVP SCH ×2 (08:00→16:36)
[2022-02-18] MEDS: XIFAXAN PO SCH ×2 (08:01→20:00)
[2022-02-18] MEDS ORDERED: KLOR-CON PO PRN (13:34)
[2022-02-18] MEDS ORDERED: POTASSIUM CHLORIDE LIQ 20 MEQ UDC PO PRN (13:34)
[2022-02-18] MEDS ORDERED: MICRO K EXTEN CAP 10 MEQ PO PRN (13:34)
[2022-02-18] MEDS ORDERED: K-RIDER 10 MEQ/NS 100 ML 10 MEQ/100 ML BAG IV PRN (13:34)
[2022-02-18] MEDS ORDERED: POTASSIUM CHL 40 MEQ/NS 0.45% 500 ML IV PRN (13:34)
[2022-02-18] MEDS ORDERED: POTASSIUM CHL 60 MEQ/NS 0.45% 500 ML IV PRN (13:34)
[2022-02-18] MEDS: K-DUR TAB 20 MEQ PO PRN (13:46)
--- NOTE | 2022-02-18 14:27 | PCM.PROG ---
Progress Note Progress Note for Day of Date of Exam: 02/18/22 Subjective Subjective: Patient was admitted as per HPI. Patient receiving PRBC transfusion. The patient reports no new problems since yesterday. His pain is better controlled he reports. It is noted that his hemoglobin is trending down. His hemoglobin is 8.0 this morning. Also concerned his total bilirubin has trended up to 9 this morning. Because of this I feel we need to keep to monitor him for the next 24 hours to make sure his hemoglobin has stabilized and his bilirubin level is not continuing to trend up. Past Medical Family Social History Past Med/Fam/Surg Hx: No changes since H&P Allergies: Allergies No Known Drug Allergies Allergy (Verified 07/28/20 12:45) Review of Systems ROS: No change since H&P Vital Signs and I&O's Vital Signs: Temperature 98.2 F Pulse Rate 109 Respiratory Rate 24 Blood Pressure [Right Arm] 95/61 Blood Pressure [Left Arm] 118/62 Blood Pressure [Right Arm] 115/77 Blood Pressure 112/70 O2 Sat by Pulse Oximetry 99 Intake and Output: Intake & Output 02/16/22 02/17/22 02/18/22 02/19/22 11:59 11:59 11:59 11:59 Intake Total 700 / 700 4377 / 4377 3585 / 3585 Output Total 2350 / 2350 1875 / 1875 2650 / 2650 Balance -1650 / -1650 2502 / 2502 935 / 935 Physical Exam Oriented: Normal, Time, Person and Place Eyes: Other (Jaundice) Ear: Normal Nose: Normal Throat: Normal Respiratory: Diminished Cardiovascular: Murmur : Testicular Pain and Other (Scrotal edema; brock for retention) Auscultation: Bowel Sounds: Normal Tenderness: Normal Skin: Other (Jaundice) Musculoskeletal: Back:Lumbar, Tender and Instability Psychiatric: Normal Mood Description: Calm Affect: Normal Speech Pattern: Clear and Appropriate Laboratory and Diagnostics Result Diagrams: 02/18/22 03:42 02/18/22 03:42 Labs: Laboratory WBC 4.5 X10^3/uL (3.6-10.0) 02/18/22 03:42 RBC 2.26 X10^6/uL (4.7-6.0) L 02/18/22 03:42 Hgb 8.0 g/dL (13.5-18.0) L 02/18/22 03:42 Hct 22.9 % (42.0-54.0) L 02/18/22 03:42 MCV 101.5 fL (80.0-100.0) H 02/18/22 03:42 MCH 35.4 pg (27.0-34.0) H 02/18/22 03:42 MCHC 34.8 g/dL (33.0-35.0) 02/18/22 03:42 RDW 21.2 % (11.6-16.5) H 02/18/22 03:42 Plt Count 37 X10^3/uL (150.0-450.0) L 02/18/22 03:42 Plt Count Comment Decreased (ADEQUATE) 02/18/22 03:42 MPV 8.3 fL (7.4-11.0) 02/18/22 03:42 Neut % (Auto) 64.2 % (42.0-75.0) 02/18/22 03:42 Lymph % (Auto) 21.4 % (21.0-51.0) 02/18/22 03:42 [place] % (Auto) 11.7 % (0.0-13.0) 02/18/22 03:42 Eos % (Auto) 2.4 % (0.9-2.9) 02/18/22 03:42 Baso % (Auto) 0.3 % (0.2-1.0) 02/18/22 03:42 Neut # (Auto) 2.9 x10^3/uL (2.2-4.8) 02/18/22 03:42 Lymph # (Auto) 1.0 X10^3/uL (1.3-2.9) L 02/18/22 03:42 [place] # (Auto) 0.5 x10^3/uL (0.3-0.8) 02/18/22 03:42 Eos # (Auto) 0.1 x10^3/uL (0.0-0.2) 02/18/22 03:42 Baso # (Auto) 0.0 X10^3/uL (0.0-0.1) 02/18/22 03:42 Absolute Nucleated RBC 0.2 /100WBC 02/18/22 03:42 Plt Morphology Comment Normal (NORMAL) 02/18/22 03:42 RBC Morphology Abnormal (NORMAL) 02/18/22 03:42 Hypochromasia Slight A 02/16/22 05:50 Anisocytosis 1+ A 02/18/22 03:42 Macrocytosis Slight A 02/18/22 03:42 Tear Drop Cells Present 02/18/22 03:42 Schistocytes Present 02/15/22 23:10 Sodium 136 mmol/L (136-145) 02/18/22 03:42 Corrected Sodium TNP 02/18/22 03:42 Potassium 3.6 mmol/L (3.5-5.1) 02/18/22 03:42 Chloride 109 mmol/L (98-107) H 02/18/22 03:42 Carbon Dioxide 23.5 mmol/L (21-32) 02/18/22 03:42 BUN 15 mg/dL (7-18) 02/18/22 03:42 Creatinine 0.74 mg/dL (0.70-1.30) 02/18/22 03:42 Est GFR (MDRD) Af Amer > 60 (>60) 02/18/22 03:42 Est GFR (MDRD) Non-Af > 60 (>60) 02/18/22 03:42 Glucose 95 mg/dL (65-99) 02/18/22 03:42 Calcium 6.5 mg/dL (8.5-10.1) L 02/18/22 03:42 Corrected Calcium 8.5 mg/dL (8.5-10.1) 02/18/22 03:42 Total Bilirubin 9.00 mg/dL (0.2-1.0) H 02/18/22 03:42 AST 40 Units/L (15-37) H 02/18/22 03:42 ALT 28 Units/L (12-78) 02/18/22 03:42 Alkaline Phosphatase 107 Units/L (46-116) 02/18/22 03:42 Ammonia 26 umol/L (11-32) 02/18/22 03:42 Total Protein 4.2 g/dL (6.4-8.2) L 02/18/22 03:42 Albumin 1.5 g/dL (3.4-5.0) L 02/18/22 03:42 Globulin 2.7 g/dL (2.5-4.5) 02/18/22 03:42 Albumin/Globulin Ratio 0.6 Ratio (1.1-2.1) L 02/18/22 03:42 Specimen Type Catherized urine 02/15/22 20:09 Urine Color Yellow (YELLOW) 02/15/22 20:09 Urine Appearance Clear (CLEAR) 02/15/22 20:09 Urine pH 6.0 (5.0 - 8.0) 02/15/22 20:09 Ur Specific [place] 1.010 (1.000-1.030) 02/15/22 20:09 Urine Protein Negative (NEGATIVE) 02/15/22 20:09 Urine Glucose (UA) Negative (NEGATIVE) 02/15/22 20:09 Urine Ketones Negative (NEGATIVE) 02/15/22 20:09 Urine Occult Blood 2+ (NEGATIVE) 02/15/22 20:09 Urine Nitrite Negative (NEGATIVE) 02/15/22 20:09 Urine Bilirubin Negative (NEGATIVE) 02/15/22 20:09 Urine Urobilinogen Normal (NORMAL) 02/15/22 20:09 Ur Leukocyte Esterase Negative (NEGATIVE) 02/15/22 20:09 Urine RBC 3-5 /HPF (0-3) A 02/15/22 20:09 Urine WBC 0-2 /HPF (0-5) 02/15/22 20:09 Ur Squamous Epith Cells Negative /HPF (NEGATIVE) 02/15/22 20:09 Urine Bacteria Trace /HPF (NEGATIVE) 02/15/22 20:09 Hyaline Casts Rare /LPF (NEGATIVE) 02/15/22 20:09 Ur Culture Indicated? No/not indicated 02/15/22 20:09 Stool Description 200 grams 02/17/22 10:58 Stl Occult Blood (IFOB) Positive (NEGATIVE) A 02/17/22 10:58 SARS CoV-2 RNA Rapid ADAM Negative (NEGATIVE) 02/15/22 23:52 Blood Type A NEGATIVE 02/16/22 00:25 Antibody Screen Negative 02/16/22 00:25 Crossmatch See Detail 02/16/22 00:25 Plan (1) UTI (urinary tract infection): Status: Acute Qualifiers: Urinary tract infection type: acute cystitis Hematuria presence: without hematuria Qualified Code(s): N30.00 - Acute cystitis without hematuria Plan: IV abx and cultures (2) Anemia: Status: Acute Qualifiers: Anemia type: unspecified type Qualified Code(s): D64.9 - Anemia, uns pecified Narrative Support Text: Hemoglobin is trending down. Plan: Admit PRBC transfusion Lasix IV Repeat labs in am Brock recheck CBC in a.m. (3) Scrotal edema: Status: Acute (4) Chronic liver disease and cirrhosis: Status: Chronic (5) Generalized weakness: Status: Acute (6) Hernia, inguinal, right: Status: Chronic (7) Hyperammonemia: Status: Chronic (8) Hyperbilirubinemia: Status: Chronic Narrative Support Text: Bilirubin level worsening (9) Thrombocytopenia: Status: Chronic (10) Chronic pain: Status: Chronic Qualifiers: Chronic pain type: chronic pain syndrome Qualified Code(s): G89.4 - Chronic pain syndrome
[2022-02-18] MEDS: KLONOPIN TAB 0.5 MG PO SCH (20:00)
[2022-02-19] MEDS: NS 1,000 ML IV 1,000 ML IV SCH (03:32)
[2022-02-19 04:49] LABS: BASOPHILS % (AUTO) 0.4 % (0.2-1.0); EOSINOPHILS # (AUTO) 0.2 x10^3/uL (0.0-0.2); EOSINOPHILS % (AUTO) 3.4 % (0.9-2.9); HEMATOCRIT 24.2 % (42.0-54.0); HEMOGLOBIN 8.3 g/dL (13.5-18.0); LYMPHOCYTES % (AUTO) 17.1 % (21.0-51.0); MEAN CORPUSCULAR HEMOGLOBIN 34.7 pg (27.0-34.0); MEAN CORPUSCULAR HGB CONC 34.2 g/dL (33.0-35.0); MEAN CORPUSCULAR VOLUME 101.3 fL (80.0-100.0); MEAN PLATELET VOLUME 8.9 fL (7.4-11.0); MONOCYTES % (AUTO) 17.2 % (0.0-13.0); NEUTROPHILS # (AUTO) 3.6 x10^3/uL (2.2-4.8); NEUTROPHILS % (AUTO) 61.9 % (42.0-75.0); RED BLOOD COUNT 2.39 X10^6/uL (4.7-6.0); RED CELL DISTRIBUTION WIDTH 20.9 % (11.6-16.5); WHITE BLOOD COUNT 5.8 X10^3/uL (3.6-10.0)
[2022-02-19 04:59] LABS: ALANINE AMINOTRANSFERASE 29 Units/L (12-78); ALBUMIN 1.6 g/dL (3.4-5.0); ALKALINE PHOSPHATASE 117 Units/L (46-116); ASPARTATE AMINO TRANSFERASE 40 Units/L (15-37); BLOOD UREA NITROGEN 21 mg/dL (7-18); CALCIUM 6.8 mg/dL (8.5-10.1); CARBON DIOXIDE 26.1 mmol/L (21-32); CHLORIDE 103 mmol/L (98-107); COR CA(FOR HYPOALB) 8.7 mg/dL (8.5-10.1); CREATININE 1.07 mg/dL (0.70-1.30); SODIUM 134 mmol/L (136-145); TOTAL PROTEIN 4.4 g/dL (6.4-8.2); eGFR NON BLACK RACES > 60 (>60)
[2022-02-19] MEDS: CHRONULAC PO SCH ×2 (05:12→14:13)
[2022-02-19] MEDS: ROXICODONE TAB 5 MG PO SCH ×2 (05:12→14:13)
[2022-02-19 05:48] LABS: PLATELET MORPHOLOGY COMMENT NORMAL (NORMAL)
[2022-02-19 05:49] LABS: ANISOCYTOSIS 1+; TEAR DROP CELLS PRESENT
[2022-02-19] MEDS: FOLIC ACID TAB 1 MG PO SCH (08:17)
[2022-02-19] MEDS: ALDACTONE TAB 25 MG PO SCH (08:17)
[2022-02-19] MEDS: LASIX IVP SCH (08:18)
[2022-02-19] MEDS: PriLOSEC PO SCH (08:18)
[2022-02-19] MEDS: PEPCID TAB 20 MG PO SCH (08:18)
[2022-02-19] MEDS: XIFAXAN PO SCH (08:19)
[2022-02-19] MEDS: K-DUR TAB 20 MEQ PO PRN (08:19)
[2022-02-19 14:14] VITALS: BP 109/65
--- NOTE | 2022-04-30 22:54 | PCM.DCPLAN ---
Discharge Plan - Discharge Plan Hospital Course: sameAdmit date 02/15/22 Discharge date 02/19/22 DOS 02/19/22 Admit diagnosis (1) UTI (urinary tract infection) (2) Anemia (3) Scrotal edema (4) Chronic liver disease and cirrhosis (5) Generalized weakness (6) Hernia, inguinal, right (7) Hyperammonemia (8) Hyperbilirubinemia (9) Thrombocytopenia (10) Chronic pain Discharge diagnosis same Hospital Course Patient is a 46 year old white male who was admitted due to scrotal swelling. Patient has a history of liver cirrhosis and has chronic edema. Patient does become more swollen at times than others. Patient reports increased edema. Patient states scrotom so significantly swollen he is having difficulty urinating. Rosario has been placed. Patient is also hypotensive. Patient's normal BP is on the low side however bp is much lower. PMH cirrhosis, chronic pain, LEONIDAS, anasarca, CHF, chronic anemia and thrombocytopenia. Patient did receive PRBCs due to anemia. All other labs chronically abnormal for patient. Scotal edema improved. Patient was discharged home to [facility] up with PCP, Discharge time spent >35 mins. Disposition: 01 HOME, SELF-CARE Condition: Stable Health Concerns: Post Hospitalization: new medications and changes needed to prevent readmission or further decline. Pt educated and given instructions on all concerns. Care Plan Goals: Problem: Pain/Alteration in Comfort Goal: Improve/ Resolve Pain; Achieve Pain Tolerance Instructions: Take pain medications as prescribed. Contact your primary care provider if your pain is unrelieved or worsens. Follow up with primary care provider as directed. Plan of Treatment: Continue with present treatment and follow up plan. Pt is to keep follow up appointment as instructed and take medications as ordered. Prescriptions: Continued clonazepam 0.5 mg Tablet 0.5 mg PO QHS famotidine 20 mg tablet 20 mg PO BID folic acid 1 mg tablet 1 mg PO DAILY furosemide 40 mg tablet 40 mg PO BID lactulose 10 gram/15 mL solution 30 ml PO TID Qty: 2700 RF: 3 metoprolol tartrate 25 mg tablet 12.5 mg PO BID omeprazole 20 mg capsule,delayed release(DR/EC) 20 mg PO BID oxycodone 5 mg tablet 5 mg PO BID potassium chloride 20 mEq tablet,ER particles/crystals 40 meq PO BID promethazine 25 mg tablet 25 mg PO Q6H PRNQty: 20 RF: 0 spironolactone 50 mg tablet 50 mg PO BID Xifaxan 550 mg tablet 550 mg PO BID - Orders to Discharge Patient Discharge Orders: Discharge (Routine); Ordered 02/19/22 Ordered By: Ammy Mckenzie - Instructions Instructions: Abdominal Pain, Adult, [id number], Cirrhosis, Scrotal Swelling, Acute Urinary Retention, Male, [id number], Edema, [id number] Print Language: BULGARIAN
== END 2022-02-19 15:15 | disposition home or self-care (01) ==
LOC: ER 17:47 → ICU 17:47
PROVIDERS: ADMIT Family Medicine; ATTEND Internal Medicine
DX: N30.00 Acute cystitis without hematuria; Z20.822 Contact with and (suspected) exposure to COVID-19; N50.89 Other specified disorders of the male genital organs; I95.89 Other hypotension; R53.1 Weakness; K40.90 Unilateral inguinal hernia, without obstruction or gangrene, not specified as recurrent; E72.20 Disorder of urea cycle metabolism, unspecified; G89.4 Chronic pain syndrome; K74.69 Other cirrhosis of liver; K21.9 Gastro-esophageal reflux disease without esophagitis; D64.89 Other specified anemias